=== PATIENT | female | born 1970 ===

== ENCOUNTER 2017-04-27 04:29 | Inpatient (IN) | payer OTHER ==
[2017-04-27 04:29] VITALS: BMI 26.9
[2017-04-27] MEDS ORDERED: Sodium Chloride 0.9% 1,000 ML IV ONE (04:47)
--- NOTE | 2017-04-27 04:53 | C.PDOC ---
History Of Present Illness Patient is a 46 year old female who was recently discharged few minutes ago, returns to the ER due to feeling lightheaded and one episode of hematemesis. Patient states she feels cold and nauseous. Time Seen by Provider: 04/27/17 04:41 Chief Complaint (Nursing): ENT Problem History Per: Patient History/Exam Limitations: no limitations Onset/Duration Of Symptoms: Mins Current Symptoms Are (Timing): Still Present Number Of Bleeding Episodes: One Associated Symptoms: Hematemesis, Other (Dizziness) Modifying Factors: None Recent travel outside of the [place] States: No Past Medical History Reviewed: Historical Data, Nursing Documentation, Vital Signs Vital Signs: Last Vital Signs Temp 98.2 F 04/27/17 04:34 Pulse 87 04/27/17 04:34 Resp 22 04/27/17 04:34 BP 125/62 04/27/17 04:34 Pulse Ox 93 L 04/27/17 06:10 - Medical History PMH: Anemia, Hypothyroidism Other PMH: Von Willebrand Disease Surgical History: Appendectomy (2009) - [facility] Procedures APPLICATION OF SPLINT (09/09/13) Family History: States: Unknown Family Hx - Social History Hx Tobacco Use: No Hx Alcohol Use: No Hx Substance Use: No - Immunization History Hx Tetanus Toxoid Vaccination: No Hx Influenza Vaccination: No Hx Pneumococcal Vaccination: No Review Of Systems Constitutional: Negative for: Fever, Chills ENT: Positive for: Other (bleeding gums) Gastrointestinal: Positive for: Hematemesis. Negative for: Nausea, Vomiting, Diarrhea Neurological: Positive for: Dizziness Physical Exam - Physical Exam Appears: Non-toxic, Other (Shivering) Skin: Dry, Pale, Other (cool, clammy) Head: Atraumatic, Normacephalic Eye(s): bilateral: Normal Inspection, EOMI Nose: Normal, No Flaring Oral Mucosa: Other (Blood in mouth) Neck: Normal ROM Chest: Symmetrical, No Tenderness Cardiovascular: Rhythm Regular, No Murmur Respiratory: Normal Breath Sounds, No Rales, No Rhonchi, No Wheezing Gastrointestinal/Abdominal: Soft, No Tenderness Extremity: Bilateral: Atraumatic Neurological/Psych: Oriented x3, Normal Speech, Other (No focal deficits) ED Course And Treatment - Laboratory Results Result Diagrams: 04/27/17 04:59 O2 Sat by Pulse Oximetry: 93 Medical Decision Making Medical Decision Making: Impression: 46 year old female with hematemesis. Plan: * Labs * IV fluids * motion picture director Progress: [address] Goldman and discussed case. He reviewed record from [facility], and recommended observation, fluids and can consult Dr Ley. Await labs 0512 Hgb is 7.3, acute change from 8.8 earlier. Order placed for type and cross. 0532 Dr. Ley called with no response, message left. [address] Goldman who now accepts patient to service. Will transfuse [address] Ley called again with no response, message left again. [address] Ley and he recommends 2 units PRBCs. If patient continues bleeding give 2 unit cryoprecipitate, if continues bleeding may need humate, von willebrand factor concentrate which will need to be ordered. Disposition - Disposition Disposition: HOSPITALIZED Disposition Time: 05:50 Condition: FAIR - POA Present On Arrival: None - Clinical Impression Clinical Impression: Gingival bleeding, Von Willebrand disease, type I, Anemia associated with acute blood loss - Scribe Statement The provider has reviewed the documentation as recorded by the Scribe Gene Pozo All medical record entries made by the Scribe were at my direction and personally dictated by me. I have reviewed the chart and agree that the record accurately reflects my personal performance of the history, physical exam, medical decision making, and the department course for this patient. I have also personally directed, reviewed, and agree with the discharge instructions and disposition. Decision To Admit - Pt Status Changed To: Hospital Disposition Of: Observation - . Bed Request Type: Telemetry Admitting Physician: Darrel Goldman Patient Diagnosis: Gingival bleeding, Von Willebrand disease, type I, Anemia associated with acute blood loss
[2017-04-27 05:04] LABS: HEMATOCRIT 21.4 % (34.0-47.0); MEAN CELL VOLUME 78.9 fL (81.0-99.0); MEAN CORPUSCULAR HEMOGLOBIN 26.9 pg (27.0-31.0); MEAN CORPUSCULAR HGB CONC 34.1 g/dL (33.0-37.0); MEAN PLATELET VOLUME 9.3 fL (7.2-11.7); WHITE BLOOD COUNT 9.5 K/uL (4.8-10.8)
--- NOTE | 2017-04-27 06:23 | CP.PCM.HP ---
<David Rdz - Last Filed: 04/27/17 06:47> Meds Allergies/Adverse Reactions: Allergies Allergy/AdvReac Type Severity Reaction Status Date / Time No Known Allergies Allergy Verified 04/27/17 04:44 Results - Vital Signs Recent Vital Signs: Last Vital Signs Temp 98.2 F 04/27/17 04:34 Pulse 87 04/27/17 04:34 Resp 22 04/27/17 04:34 BP 125/62 04/27/17 04:34 Pulse Ox 93 L 04/27/17 06:17 - Labs Result Diagrams: 04/27/17 04:59 Labs: Laboratory Results - last 24 hr 04/27/17 06:24 Blood Type O POSITIVE Antibody Screen Negative ED Course And Treatment - Laboratory Results Result Diagrams: 04/27/17 04:59 ECG: Interpreted By Me, Viewed By Me ECG Rhythm: Sinus Rhythm ECG Interpretation: No Acute Changes, Abnormal Interpretation Of ECG: NSR, prolonged QT interval, no acute change, abnormal tracings. Rate From EC O2 Sat by Pulse Oximetry: 93 <Rod Jaime - Last Filed: 04/27/17 08:45> History of Present Illness - History of Present Illness History of Present Illness: CC: Persistent gingival bleeding HPI: Patient is a 46 year old female, with PMHx of Type 1 VWD, iron deficiency anemia, and hypothyroidism, who presents to ED for evaluation of gingival bleeding. Patient states bleeding started spontaneously around midnight , and has lasted for more than an hour. Pt was given fluids, and one unit of desmopressin, and ceased bleeding, was hemodynamically stable, and discharged. Pt got to parking lot, when she felt lightheaded, and had one episode of hematemesis. She admits nausea and feeling light-headed, but denies epistaxis, hemotchezia, vision changes, extremity numbness/weakness, chest pain, shortness of breath, palpitations, abdominal pain. Pt was seen at [facility] on 04/25 for similar symptoms, and was given 1 unit of PRBCs and one unit of DDAVP. Hgb was 8. Patient diagnosed with Type [address] Ley. Patient has had other episodes of bleeding in the past, with the first being in 2013. She notes multiple prior transfusions. PMHx: Von Willebrand, Hypothyroid PSHx: Appendectomy (approximately 2009) Allergies: NKDA Medications: Synthroid 125mcg, Ferrous Sulfate Family Hx:Mother- HTN, Father- DM, Brother-frequent nose bleeds Social Hx: Lives with , no tobacco, no EtOH, no illicit drugs Present on Admission - Present on Admission Any Indicators Present on Admission: No Review of Systems - Constitutional Constitutional: Chills. absent: Fever - EENT Eyes: absent: Change in Vision Ears: absent: Decreased Hearing Nose/Mouth/Throat: absent: Sore Throat - Cardiovascular Cardiovascular: absent: Chest Pain, Chest Pain at Rest, Dyspnea - Respiratory Respiratory: absent: Dyspnea, Dyspnea on Exertion - Gastrointestinal Gastrointestinal: Hematemesis (one episode), Nausea, Vomiting. absent: Abdominal Pain - Genitourinary Genitourinary: absent: Dysuria - Menstruation Menstruation: Menopausal (LMP in Sep 2016) - Musculoskeletal Musculoskeletal: absent: Numbness, Tingling - Integumentary Integumentary: absent: Dry Skin, Wounds - Neurological Neurological: Dizziness. absent: Weakness - Endocrine Endocrine: absent: Polydipsia, Polyphagia, Polyuria Past Patient History - Infectious Disease Hx of Infectious Diseases: None - Past Medical History & Family History Past Medical History?: Yes - Past Social History Smoking Status: Never Smoked - CARDIAC Hx Cardiac Disorders: No - PULMONARY Hx Respiratory Disorders: No - NEUROLOGICAL Hx Neurological Disorder: No - HEENT Hx HEENT Problems: No - RENAL Hx Chronic Kidney Disease: No - ENDOCRINE/METABOLIC Hx Hypothyroidism: Yes - HEMATOLOGICAL/ONCOLOGICAL Hx Anemia: Yes - INTEGUMENTARY Hx Dermatological Problems: No - MUSCULOSKELETAL/RHEUMATOLOGICAL Hx Musculoskeletal Disorders: No Hx Falls: No - GASTROINTESTINAL Hx Gastrointestinal Disorders: No - GENITOURINARY/GYNECOLOGICAL Hx Genitourinary Disorders: No - PSYCHIATRIC Hx Substance Use: No - SURGICAL HISTORY Hx Appendectomy: Yes (2009) - ANESTHESIA Hx Anesthesia: Yes Physical Exam - Constitutional Appears: Non-toxic, No Acute Distress - Head Exam Head Exam: ATRAUMATIC, NORMOCEPHALIC - Eye Exam Eye Exam: EOMI Pupil Exam: PERRL - ENT Exam ENT Exam: Mucous Membranes Dry - Neck Exam Neck exam: Positive for: Normal Inspection - Respiratory Exam Respiratory Exam: Clear to Auscultation Bilateral, NORMAL BREATHING PATTERN - Cardiovascular Exam Cardiovascular Exam: REGULAR RHYTHM, +S1, +S2, Systolic Murmur (aortic murmur) - GI/Abdominal Exam GI & Abdominal Exam: Normal Bowel Sounds, Soft. absent: Tenderness - Extremities Exam Extremities exam: Positive for: normal capillary refill, normal inspection - Back Exam Back exam: absent: CVA tenderness (L), CVA tenderness (R) - Neurological Exam Neurological exam: Alert, Oriented x3 - Psychiatric Exam Psychiatric exam: Normal Affect, Normal Mood - Skin Skin Exam: Dry, Pallor Results - Vital Signs Recent Vital Signs: Last Vital Signs Temp 98.2 F 04/27/17 04:34 Pulse 87 04/27/17 04:34 Resp 22 04/27/17 04:34 BP 125/62 04/27/17 04:34 Pulse Ox 93 L 04/27/17 06:17 - Labs Result Diagrams: 04/27/17 04:59 Assessment & Plan - Assessment and Plan (Free Text) Assessment: 46 year old female, with PMHx of Type 1 VWD, iron deficiency anemia, and hypothyroidism, who presents to ED for evaluation of gingival bleeding. Plan: Von Willebrands Dz, Type 1 Pt not actively bleeding Type and Screen - 2 units - hold administration pending 11AM CBC Dr. Ley help, appreciated - f/u reccs PCXR (04/27/17): mild venous congestion (see full report) Anemia Hgb: 7.3 on AM labs, 8.8 on 04/26 PM labs - believed dilutional from fluids f/u CBC Q6H NS @ 100cc/hr 2L O2 PRN Hypothyroidism Hold home Synthroid 125mg PO Daily f/u TSH Murmur f/u ECHO Prophylaxis SCDs Heparin C/I due to active hemorrhage Protonix 40mg IV Q12H ED Course And Treatment - Laboratory Results Result Diagrams: 04/27/17 04:59 <Darrel Goldman P - Last Filed: 04/29/17 23:29> Results - Vital Signs Recent Vital Signs: Last Vital Signs Temp 97.6 F 04/29/17 15:09 Pulse 65 04/29/17 15:09 Resp 18 04/29/17 15:09 BP 126/74 04/29/17 15:09 Pulse Ox 96 04/29/17 15:09 - Labs Result Diagrams: 04/29/17 07:11 04/29/17 07:11 ED Course And Treatment - Laboratory Results Result Diagrams: 04/29/17 07:11 04/29/17 07:11 Attending/Attestation - Attestation I have personally seen and examined this patient.: Yes I have fully participated in the care of the patient.: Yes I have reviewed all pertinent clinical information: Yes
[2017-04-27 06:47] LABS: INR 1.1
--- NOTE | 2017-04-27 07:33 | RAD ---
HISTORY: admission, anemia COMPARISON: No prior. FINDINGS: LUNGS: Mild venous congestion. PLEURA: No significant pleural effusion identified, no pneumothorax apparent. CARDIOVASCULAR: Normal. OSSEOUS STRUCTURES: No significant abnormalities. VISUALIZED UPPER ABDOMEN: Normal. OTHER FINDINGS: None. IMPRESSION: Mild venous congestion.
--- NOTE | 2017-04-27 09:24 | CP.PCM.PN ---
Addendum entered and electronically signed by Mariya Frank 04/27/17 10:55: Head CT negative Addendum entered and electronically signed by Mariya Frank 04/27/17 09:55: CT abdomen/pelvis ordered as per GI team- will follow up Original Note: <Mariya Frank - Last Filed: 04/27/17 09:31> Subjective - Date & Time of Evaluation Date of Evaluation: 04/27/17 Time of Evaluation: 09:15 - Subjective Subjective: RAPID RESPONSE NOTE HANDICRAFTS TEACHER called 9:15am Resident and attending came down immediately. Patient was having hematemesis and in distress. She was also complaining of a headache. BP 119/75 HR 80 Temp 98.3 RR 18 O2 100% Patient was being given 1U PRBC transfusion at time of HANDICRAFTS TEACHER which was not stopped Patient has been NPO since admission on NS @ 100cc/hr Patient was started on protonix gtt and 17.5539 mcg DDAVP Repeat vitals 135/75 HR 80 Temp 98.3 O2 100% on room air CT head ordered. GI Dr. Ramírez consulted CBC ordered post transfusion 1U PRBC Objective - Vital Signs/Intake and Output Vital Signs (last 24 hours): Temp Pulse Resp BP Pulse Ox 98.3 F 80 18 119/75 98 04/27/17 08:58 04/27/17 08:58 04/27/17 08:58 04/27/17 08:58 04/27/17 08:06 Intake and Output: 04/27/17 04/27/17 06:59 18:59 Intake Total 0 Balance 0 - Medications Medications: Current Medications Sodium Chloride (Sodium Chloride 0.9%) 1,000 mls @ 100 mls/hr IV .Q10H BRET Pantoprazole Sodium 80 mg/ (Sodium Chloride) 100 mls @ 10 mls/hr IVP .Q10H BRET PRN Reason: 8 MG/HR Desmopressin Acetate 17.5539 (mcg/ Sodium Chloride) 54.3885 mls @ 100 mls/hr IV ONCE ONE Stop: 04/27/17 09:50 Ondansetron HCl (Zofran Inj) 4 mg IVP Q6 BRET - Labs Labs: PT 12.8 SECONDS (9.7-12.2) H 04/27/17 05:59 INR 1.1 04/27/17 05:59 APTT 29 SECONDS (21-34) D 04/27/17 05:59 <De LeónMendez arreola H - Last Filed: 04/27/17 15:26> Objective - Vital Signs/Intake and Output Vital Signs (last 24 hours): Temp Pulse Resp BP Pulse Ox 98.0 F 85 20 105/63 100 04/27/17 15:06 04/27/17 15:06 04/27/17 15:06 04/27/17 15:06 04/27/17 12:12 Intake and Output: 04/27/17 04/27/17 06:59 18:59 Intake Total 385 Balance 385 - Medications Medications: Current Medications Ferric Sodium Gluconate Complex (Ferrlecit) 125 mg IVPB DAILY [facility] Stop: 05/02/17 18:01 Sodium Chloride (Sodium Chloride 0.9%) 1,000 mls @ 100 mls/hr IV .Q10H [facility] Last Admin: 04/27/17 14:10 Dose: 100 mls/hr Lactated Ringer's (Lactated Ringer's 500ml) 500 mls @ 75 mls/hr IV .Q6H40M [facility] Last Admin: 04/27/17 14:19 Dose: Not Given Ondansetron HCl (Zofran Inj) 4 mg IVP Q6 PRN PRN Reason: Nausea/Vomiting Pantoprazole Sodium (Protonix Ec Tab) 40 mg PO DAILY BRET - Labs Labs: 04/27/17 13:44 PT 12.8 SECONDS (9.7-12.2) H 04/27/17 05:59 INR 1.1 04/27/17 05:59 APTT 29 SECONDS (21-34) D 04/27/17 05:59 Attending/Attestation - Attestation I have personally seen and examined this patient.: Yes I have fully participated in the care of the patient.: Yes I have reviewed all pertinent clinical information, including history, physical exam and plan: Yes Notes (Text): 04/27/17 15:22 Medical hospitalist: The patient was seen and examined by me, agree with the above note by clinical medical assistant. From what I understand the patient has a history of von Willebrand's disease. She was previously seen at [facility] and was discharged there. She then came to [facility] where she received DDAVP and was discharged from the ER but while waiting had of vomiting up blood. I came up to the floor to see the patient HANDICRAFTS TEACHER was called. I saw basin which had a very dark colored blood in it. Reviewed the most recent lab work showed that she did have a low hemoglobin I gave orders to transfuse her 1 unit of PRBCs as well as to give additional DDAVP her blood pressure and heart rate were stable at this time I looked in her mouth it appears that she has area on her gums that was bleeding. The blood in the basin was not bright red and as a precaution were to start protonix ggt. Rate have to monitor the patient's hemoglobin at this time. From what I understand hematology oncology has ordered specialized clotting factors however I don't know if we have it available. Because she was complaining of headache, as well as this history of von Willebrand's disease, the bleeding and the low hemoglobin we opted to get a CT scan of the head to assess for any potential bleeding in the brain Thank you very much, Mendez De León
[2017-04-27] MEDS ORDERED: Pantoprazole 80 MG in Sodium Chloride 0.9% 100 ML IVP SCH (09:30)
[2017-04-27] MEDS ORDERED: SODIUM CHLORIDE 0.9% IV ONE (10:00)
[2017-04-27] MEDS ORDERED: DESMOPRESSIN IV ONE (10:00)
--- NOTE | 2017-04-27 10:14 | CT ---
PROCEDURE: CT HEAD WITHOUT CONTRAST. HISTORY: headaches and hx of VWD COMPARISON: None available. TECHNIQUE: Axial computed tomography images were obtained through the head/brain without intravenous contrast. Radiation dose: Total exam DLP = 981.84 mGy-cm. This CT exam was performed using one or more of the following dose reduction techniques: Automated exposure control, adjustment of the mA and/or kV according to patient size, and/or use of iterative reconstruction technique. FINDINGS: HEMORRHAGE: No intracranial hemorrhage. BRAIN: No mass effect or edema. The green-white matter differentiation appears intact. Please note that MRI with diffusion imaging is more sensitive in the detection of acute ischemic event. VENTRICLES: No hydrocephalus. CALVARIUM: Unremarkable. PARANASAL SINUSES: Unremarkable as visualized. No significant inflammatory changes. MASTOID AIR CELLS: Unremarkable as visualized. No inflammatory changes. OTHER FINDINGS: None. IMPRESSION: No acute intracranial pathology identified. Please note that MRI with diffusion imaging is more sensitive in the detection of acute ischemic event.
[2017-04-27] MEDS ORDERED: Pantoprazole 80 MG in Sodium Chloride 0.9% 100 ML IV SCH (10:15)
--- NOTE | 2017-04-27 10:25 | CP.PCM.PN ---
Subjective - Date & Time of Evaluation Date of Evaluation: 04/27/17 Time of Evaluation: 09:30 - Subjective Subjective: PGY1 Medicine note for Dr. Gilbert Patient seen and examined at bedside. Patient had an APPAREL DESIGNER called this AM which I attended to. Patient was sent for an EGD which showed no acute bleed. Before APPAREL DESIGNER and episode of hematemesis patient was complaining of headaches and fatigue. She denied acute chest pain, palpitations, SOB, cough, abd pain, bowel/ bladder complaints, pain/swelling in legs bilaterally. Patient had an episode of melanotic stool during the day. Objective - Vital Signs/Intake and Output Vital Signs (last 24 hours): Temp Pulse Resp BP Pulse Ox 98.3 F 82 20 128/70 98 04/27/17 09:28 04/27/17 09:28 04/27/17 09:28 04/27/17 09:28 04/27/17 08:06 Intake and Output: 04/27/17 04/27/17 06:59 18:59 Intake Total 0 Balance 0 - Medications Medications: Current Medications Sodium Chloride (Sodium Chloride 0.9%) 1,000 mls @ 100 mls/hr IV .Q10H BRET Desmopressin Acetate 18 mcg/ (Sodium Chloride) 54.5 mls @ 100 mls/hr IV ONCE ONE Stop: 04/27/17 10:32 Pantoprazole Sodium 80 mg/ (Sodium Chloride) 100 mls @ 10 mls/hr IV .Q10H BRET PRN Reason: 8 MG/HR Ondansetron HCl (Zofran Inj) 4 mg IVP Q6 BRET - Labs Labs: PT 12.8 SECONDS (9.7-12.2) H 04/27/17 05:59 INR 1.1 04/27/17 05:59 APTT 29 SECONDS (21-34) D 04/27/17 05:59 - Constitutional Appears: In Acute Distress - Head Exam Head Exam: NORMAL INSPECTION - Eye Exam Eye Exam: Normal appearance. absent: Conjunctival injection, Scleral icterus - ENT Exam ENT Exam: Mucous Membranes Moist - Neck Exam Neck Exam: Normal Inspection. absent: Tenderness - Respiratory Exam Respiratory Exam: Clear to Ausculation Bilateral, NORMAL BREATHING PATTERN. absent: Accessory Muscle Use, Rales, Rhonchi, Wheezes - Cardiovascular Exam Cardiovascular Exam: REGULAR RHYTHM, RRR, +S1, +S2. absent: Murmur - GI/Abdominal Exam GI & Abdominal Exam: Soft, Normal Bowel Sounds. absent: Tenderness - Extremities Exam Extremities Exam: Normal Capillary Refill, Normal Inspection. absent: Pedal Edema, Tenderness - Back Exam Back Exam: NORMAL INSPECTION. absent: rash noted - Neurological Exam Neurological Exam: Alert, Awake, Oriented x3 - Psychiatric Exam Psychiatric exam: Normal Affect, Normal Mood - Skin Skin Exam: Pallor, Pallor Assessment and Plan - Assessment and Plan (Free Text) Assessment: 46 year old female, with PMHx of Type 1 VWD, iron deficiency anemia, and hypothyroidism, who presents to ED for evaluation of gingival bleeding Plan: Von Willebrands Dz, Type 1 -patient transfused 2U PRBC -Desmopressin 0.3mcg/kg of body weight given IV today -As per heme/onc will give one more dose of desmopressin in the AM- ordered. -Patient to be discharged in the AM on intranasal desmopressin and follow up with Dr. Ley outpatient -Dr. Ley on board help appreciated Hematemesis -Urgent EGD done by Dr. Ramírez -EGD showed : Z-line regular 35cm from incisors. Normal esophagus; gastritis [ likely secondary to retching]; normal examined duodenum. - no active GI blood loss. -Patient on full liquid diet to be ADAT -Protonix 40mg po daily -Zofran 4mg IVP Q6 PRN nausea/vomiting -Monitor H&H and transfuse as necessary -NS @ 100cc/hr -Dr. Ramírez on board help appreciated Iron deficiency Anemia -patient transfused 2U PRBC -f/u repeat CBC -Ferrlecit 125mg IVPB daily for 5 days -Patient to continue IV iron outpatient with Dr. Ley Hypothyroidism -Hold home Synthroid 125mg PO Daily Murmur f/u ECHO Prophylaxis -SCDs -Protonix 40mg PO daily -Full liquid diet ADAT -NS @ 100c/hr Plan discussed with Dr. Ofelia Frank PGY1
[2017-04-27] MEDS: Sodium Chloride 0.9% 1,000 ML IV SCH ×2 (11:05→14:10)
[2017-04-27] MEDS ORDERED: Lactated Ringer's 500 ML IV ONE (11:12)
[2017-04-27] MEDS ORDERED: Propofol 10 mg/ml Inj (20 ML) ONE (11:18)
--- NOTE | 2017-04-27 11:38 | CP.PCM.CON ---
<RajJessicasEse - Last Filed: 04/27/17 11:56> History of Present Illness - History of Present Illness History of Present Illness: Gastroenterology Fellow/PGY4 Consult Note 46 year old female with history of von Willebrand factor deficiency and Hypothyroidism presenting with vomiting blood. Patient and note recent discharge on Monday from [facility] [place] for bleeding gums status post one unit pRBC and DDAVP. Patient had repeat bleeding at 430AM this morning leading to ER presentation. Repeat witnessed hematemesis at 930AM with rapid response. Started on protonix drip, one unit PRBC, and DDAVP. On further questioning, similar event in 2014 leading to EGD with "esophageal clips placement" per . Patient one episode of black stool one hour after hematemesis. Patient denies abdominal pain, nausea, bilious/food vomitus, dysphagia, odynophagia, heartburn, acid reflux, indigestion, bloating, diarrhea, constipation, melena at home, hematochezia, or unintentional weight loss. Family- denies esophageal cancer, stomach cancer, colon cancer Social- denies tobacco or illicit drug use, quit alcohol use a few years ago Surgery-appendectomy, Review of Systems - Review of Systems Review of Systems: A 12-point review of systems negative except for as above Past Patient History - Infectious Disease Hx of Infectious Diseases: None - Past Medical History & Family History Past Medical History?: Yes - Past Social History Smoking Status: Never Smoked - CARDIAC Hx Cardiac Disorders: No - PULMONARY Hx Respiratory Disorders: No - NEUROLOGICAL Hx Neurological Disorder: No - HEENT Hx HEENT Problems: No - RENAL Hx Chronic Kidney Disease: No - ENDOCRINE/METABOLIC Hx Hypothyroidism: Yes - HEMATOLOGICAL/ONCOLOGICAL Hx Anemia: Yes - INTEGUMENTARY Hx Dermatological Problems: No - MUSCULOSKELETAL/RHEUMATOLOGICAL Hx Musculoskeletal Disorders: No Hx Falls: No - GASTROINTESTINAL Hx Gastrointestinal Disorders: No - GENITOURINARY/GYNECOLOGICAL Hx Genitourinary Disorders: No - PSYCHIATRIC Hx Substance Use: No - SURGICAL HISTORY Hx Appendectomy: Yes (2009) - ANESTHESIA Hx Anesthesia: Yes Meds Allergies/Adverse Reactions: Allergies Allergy/AdvReac Type Severity Reaction Status Date / Time No Known Allergies Allergy Verified 04/27/17 04:44 - Medications Medications: Current Medications Sodium Chloride (Sodium Chloride 0.9%) 1,000 mls @ 100 mls/hr IV .Q10H [facility] Last Admin: 04/27/17 11:05 Dose: Not Given Lactated Ringer's (Lactated Ringer's 500ml) 500 mls @ 75 mls/hr IV .Q6H40M [facility] Ondansetron HCl (Zofran Inj) 4 mg IVP Q6 [facility] Pantoprazole Sodium (Protonix Ec Tab) 40 mg PO DAILY [facility] Physical Exam - Constitutional Appears: Non-toxic, No Acute Distress - Head Exam Head Exam: ATRAUMATIC, NORMOCEPHALIC - Eye Exam Eye Exam: EOMI, PERRL Pupil Exam: PERRL. absent: Miosis, Mydriatic - ENT Exam ENT Exam: Mucous Membranes Moist, Normal Oropharynx - Neck Exam Neck exam: Positive for: Full Rom, Normal Inspection - Respiratory Exam Respiratory Exam: Clear to Auscultation Bilateral. absent: Rales, Rhonchi, Wheezes - Cardiovascular Exam Cardiovascular Exam: RRR, +S1, +S2. absent: Gallop, Rubs - GI/Abdominal Exam GI & Abdominal Exam: Normal Bowel Sounds, Soft. absent: Distended, Firm, Guarding, Organomegaly, Rebound, Rigid, Tenderness - Extremities Exam Extremities exam: Positive for: normal inspection. Negative for: pedal edema - Neurological Exam Neurological exam: Alert - Psychiatric Exam Psychiatric exam: Normal Affect, Normal Mood - Skin Skin Exam: Dry, Intact, Normal Color, Warm Results - Vital Signs Recent Vital Signs: Last Vital Signs Temp 98 F 04/27/17 11:07 Pulse 69 04/27/17 11:07 Resp 20 04/27/17 11:07 BP 124/79 04/27/17 11:07 Pulse Ox 98 04/27/17 08:06 - Labs Result Diagrams: 04/27/17 04:59 Labs: Laboratory Results - last 24 hr 04/27/17 04/27/17 04/27/17 05:59 06:24 11:14 PT 12.8 H INR 1.1 APTT 29 D Urine HCG, Qual Negative Blood Type O POSITIVE Antibody Screen Negative Assessment & Plan - Assessment and Plan (Free Text) Assessment: 46 year old female with history of von Willebrand factor deficiency and Hypothyroidism presenting with hematemesis. Active treatment of acute blood loss anemia s/p 2units pRBCs and DDAVP in setting of von Willebrand factor deficiency. EGD 2015 endorsed evaluation of hematemesis with "esophageal clips placement". Plan: >urgent EGD performed >no active GI blood loss >gastritis, erythema of gastric fundus likely 2/2 retching >supportive care: PPI daily, antiemetics >full liquid diet >follow up Hematology recommendations- vWF deficiency >thank you for opportunity to participate in the care of this patient <Claude Ramírez - Last Filed: 04/27/17 13:04> Meds - Medications Medications: Current Medications Sodium Chloride (Sodium Chloride 0.9%) 1,000 mls @ 100 mls/hr IV .Q10H [facility] Last Admin: 04/27/17 11:05 Dose: Not Given Lactated Ringer's (Lactated Ringer's 500ml) 500 mls @ 75 mls/hr IV .Q6H40M [facility] Ondansetron HCl (Zofran Inj) 4 mg IVP Q6 PRN PRN Reason: Nausea/Vomiting Pantoprazole Sodium (Protonix Ec Tab) 40 mg PO DAILY [facility] Results - Vital Signs Recent Vital Signs: Last Vital Signs Temp 97.2 F L 04/27/17 12:12 Pulse 69 04/27/17 12:12 Resp 18 04/27/17 12:12 BP 119/68 04/27/17 12:12 Pulse Ox 100 04/27/17 12:12 - Labs Result Diagrams: 04/27/17 04:59 Labs: Laboratory Results - last 24 hr 04/27/17 04/27/17 04/27/17 05:59 06:24 11:14 PT 12.8 H INR 1.1 APTT 29 D Urine HCG, Qual Negative Blood Type O POSITIVE Antibody Screen Negative Attending/Attestation - Attestation I have personally seen and examined this patient.: Yes I have fully participated in the care of the patient.: Yes I have reviewed all pertinent clinical information: Yes Notes (Text): 04/27/17 12:58 I have seen and examined patient with GI fellow. Agree with above documentation with the following additions. In brief, this is a 46 year old female with history of Type 1 VWF deficiency, hypothyroidism who presents to hospital with complaint of gingival bleeding. She was started on DDAVP for therapy of platelet dysfunction. Hospital course complicated by acute episode of hematemesis this morning. She denies abdominal pain though she does endorse nausea. She otherwise denies weight loss, fever/chills, dysphagia, odynophagia , diarrhea, or change in bowel habits. She had a similar presentation in 2014 where intervention was performed on esophagus, she cannot specify details. Type 1 VWF deficiency Hypothyroidism Gingival bleeding, hematemesis - Continue with PPI therapy - NPO - Follow up hematology recommendations regarding management of VWF deficiency - Patient currently receiving 1 U PRBC transfusion, continue to monitor H/H - Will plan for urgent EGD today to rule out acute upper GI bleeding given clinical presentation. Her symptoms may also be explained by the swallowing of residual blood in oropharynx from initial gingival bleeding. Will make additional recommendations following endoscopic evaluation.
[2017-04-27 13:50] LABS: MEAN CELL VOLUME 78.9 fL (81.0-99.0); MEAN CORPUSCULAR HEMOGLOBIN 27.8 pg (27.0-31.0); MEAN CORPUSCULAR HGB CONC 35.2 g/dL (33.0-37.0); MEAN PLATELET VOLUME 9.2 fL (7.2-11.7); RED CELL DISTRIBUTION WIDTH 15.2 % (11.5-14.5); WHITE BLOOD COUNT 5.8 K/uL (4.8-10.8)
[2017-04-27] MEDS: Lactated Ringer's 500 ML IV SCH (14:19)
--- NOTE | 2017-04-27 14:32 | CP.PCM.CON ---
Past Patient History - Infectious Disease Hx of Infectious Diseases: None - Past Medical History & Family History Past Medical History?: Yes - Past Social History Smoking Status: Never Smoked - CARDIAC Hx Cardiac Disorders: No - PULMONARY Hx Respiratory Disorders: No - NEUROLOGICAL Hx Neurological Disorder: No - HEENT Hx HEENT Problems: No - RENAL Hx Chronic Kidney Disease: No - ENDOCRINE/METABOLIC Hx Hypothyroidism: Yes - HEMATOLOGICAL/ONCOLOGICAL Hx Anemia: Yes - INTEGUMENTARY Hx Dermatological Problems: No - MUSCULOSKELETAL/RHEUMATOLOGICAL Hx Musculoskeletal Disorders: No Hx Falls: No - GASTROINTESTINAL Hx Gastrointestinal Disorders: No - GENITOURINARY/GYNECOLOGICAL Hx Genitourinary Disorders: No - PSYCHIATRIC Hx Substance Use: No - SURGICAL HISTORY Hx Appendectomy: Yes (2009) - ANESTHESIA Hx Anesthesia: Yes Meds Allergies/Adverse Reactions: Allergies Allergy/AdvReac Type Severity Reaction Status Date / Time No Known Allergies Allergy Verified 04/27/17 04:44 - Medications Medications: Current Medications Sodium Chloride (Sodium Chloride 0.9%) 1,000 mls @ 100 mls/hr IV .Q10H [facility] Last Admin: 04/27/17 14:10 Dose: 100 mls/hr Lactated Ringer's (Lactated Ringer's 500ml) 500 mls @ 75 mls/hr IV .Q6H40M [facility] Last Admin: 04/27/17 14:19 Dose: Not Given Ondansetron HCl (Zofran Inj) 4 mg IVP Q6 PRN PRN Reason: Nausea/Vomiting Pantoprazole Sodium (Protonix Ec Tab) 40 mg PO DAILY [facility] Results - Vital Signs Recent Vital Signs: Last Vital Signs Temp 97.2 F L 04/27/17 12:12 Pulse 69 04/27/17 12:12 Resp 18 04/27/17 12:12 BP 119/68 04/27/17 12:12 Pulse Ox 100 04/27/17 12:12 - Labs Result Diagrams: 04/27/17 13:44 Labs: Laboratory Results - last 24 hr 04/27/17 04/27/17 04/27/17 05:59 06:24 11:14 WBC RBC Hgb Hct MCV MCH MCHC RDW Plt Count MPV PT 12.8 H INR 1.1 APTT 29 D Urine HCG, Qual Negative Blood Type O POSITIVE Antibody Screen Negative 04/27/17 13:44 WBC 5.8 RBC 3.04 L Hgb 8.5 L Hct 24.0 L MCV 78.9 L MCH 27.8 MCHC 35.2 RDW 15.2 H Plt Count 162 MPV 9.2 PT INR APTT Urine HCG, Qual Blood Type Antibody Screen
--- NOTE | 2017-04-27 14:50 | CP.PCM.PN ---
Objective - Vital Signs/Intake and Output Vital Signs (last 24 hours): Temp Pulse Resp BP Pulse Ox 97.2 F L 69 18 119/68 100 04/27/17 12:12 04/27/17 12:12 04/27/17 12:12 04/27/17 12:12 04/27/17 12:12 Intake and Output: 04/27/17 04/27/17 06:59 18:59 Intake Total 385 Balance 385 - Medications Medications: Current Medications Sodium Chloride (Sodium Chloride 0.9%) 1,000 mls @ 100 mls/hr IV .Q10H [facility] Last Admin: 04/27/17 14:10 Dose: 100 mls/hr Lactated Ringer's (Lactated Ringer's 500ml) 500 mls @ 75 mls/hr IV .Q6H40M [facility] Last Admin: 04/27/17 14:19 Dose: Not Given Ondansetron HCl (Zofran Inj) 4 mg IVP Q6 PRN PRN Reason: Nausea/Vomiting Pantoprazole Sodium (Protonix Ec Tab) 40 mg PO DAILY [facility] - Labs Labs: 04/27/17 13:44 PT 12.8 SECONDS (9.7-12.2) H 04/27/17 05:59 INR 1.1 04/27/17 05:59 APTT 29 SECONDS (21-34) D 04/27/17 05:59
--- NOTE | 2017-04-27 14:58 | CP.PCM.CON ---
History of Present Illness - History of Present Illness History of Present Illness: Consult note for Dr. Ley Heme/Oncology 46 year old female with a history of type 1 von willebrands disease, presenting with prolonged gingival bleeding and anemia. The patient reports to prolonged spontaneous gingival bleeding for several hours. She began to feel dizzy which prompted her to bring her to the ER. In the ER her hgb nadirid at 7 and she was transfused 1U PRBC. She reports to feeling better and her gingival bleeding has resolved. She also reports one episode of hematemasis. Past medical history: Type 1 VWD Past surgical history: None Family history: Brother get frequent node bleedings. Social history: Denies tobacco, alcohol, and illicit drug use. Allergies: NKA Review of systems: Review of Systems - Review of Systems All systems: reviewed and no additional remarkable complaints except - Constitutional Constitutional: Weakness. absent: Chills, Fever - EENT Ears: Dizziness - Cardiovascular Cardiovascular: Lightheadedness. absent: Chest Pain, Palpitations - Gastrointestinal Gastrointestinal: Hematemesis - Genitourinary Genitourinary: absent: Dysuria Past Patient History - Infectious Disease Hx of Infectious Diseases: None - Past Medical History & Family History Past Medical History?: Yes - Past Social History Smoking Status: Never Smoked - CARDIAC Hx Cardiac Disorders: No - PULMONARY Hx Respiratory Disorders: No - NEUROLOGICAL Hx Neurological Disorder: No - HEENT Hx HEENT Problems: No - RENAL Hx Chronic Kidney Disease: No - ENDOCRINE/METABOLIC Hx Hypothyroidism: Yes - HEMATOLOGICAL/ONCOLOGICAL Hx Anemia: Yes - INTEGUMENTARY Hx Dermatological Problems: No - MUSCULOSKELETAL/RHEUMATOLOGICAL Hx Musculoskeletal Disorders: No Hx Falls: No - GASTROINTESTINAL Hx Gastrointestinal Disorders: No - GENITOURINARY/GYNECOLOGICAL Hx Genitourinary Disorders: No - PSYCHIATRIC Hx Substance Use: No - SURGICAL HISTORY Hx Appendectomy: Yes (2009) - ANESTHESIA Hx Anesthesia: Yes Meds Allergies/Adverse Reactions: Allergies Allergy/AdvReac Type Severity Reaction Status Date / Time No Known Allergies Allergy Verified 04/27/17 04:44 - Medications Medications: Current Medications Ferric Sodium Gluconate Complex (Ferrlecit) 125 mg IVPB DAILY [facility] Stop: 05/02/17 15:01 Sodium Chloride (Sodium Chloride 0.9%) 1,000 mls @ 100 mls/hr IV .Q10H [facility] Last Admin: 04/27/17 14:10 Dose: 100 mls/hr Lactated Ringer's (Lactated Ringer's 500ml) 500 mls @ 75 mls/hr IV .Q6H40M [facility] Last Admin: 04/27/17 14:19 Dose: Not Given Ondansetron HCl (Zofran Inj) 4 mg IVP Q6 PRN PRN Reason: Nausea/Vomiting Pantoprazole Sodium (Protonix Ec Tab) 40 mg PO DAILY [facility] Physical Exam - Constitutional Appears: Non-toxic, No Acute Distress - Eye Exam Additional comments: conujunctival pallor - Respiratory Exam Respiratory Exam: Clear to Auscultation Bilateral. absent: Rhonchi, Wheezes - Cardiovascular Exam Cardiovascular Exam: REGULAR RHYTHM, RRR, +S1, +S2. absent: Gallop, Rubs - GI/Abdominal Exam GI & Abdominal Exam: Normal Bowel Sounds. absent: Soft, Tenderness - Extremities Exam Extremities exam: Negative for: pedal edema Results - Vital Signs Recent Vital Signs: Last Vital Signs Temp 97.2 F L 04/27/17 12:12 Pulse 69 04/27/17 12:12 Resp 18 04/27/17 12:12 BP 119/68 04/27/17 12:12 Pulse Ox 100 04/27/17 12:12 - Labs Result Diagrams: 04/27/17 13:44 Labs: Laboratory Results - last 24 hr 04/27/17 04/27/17 04/27/17 05:59 06:24 11:14 WBC RBC Hgb Hct MCV MCH MCHC RDW Plt Count MPV PT 12.8 H INR 1.1 APTT 29 D TSH 3rd Generation Urine HCG, Qual Negative Blood Type O POSITIVE Antibody Screen Negative 04/27/17 04/27/17 13:44 13:44 WBC 5.8 RBC 3.04 L Hgb 8.5 L Hct 24.0 L MCV 78.9 L MCH 27.8 MCHC 35.2 RDW 15.2 H Plt Count 162 MPV 9.2 PT INR APTT TSH 3rd Generation 2.01 Urine HCG, Qual Blood Type Antibody Screen Assessment & Plan (1) Iron deficiency anemia Assessment and Plan: Patient given 2 units of PRBCs, will also give 125mg of IV Ferricit for 5 days staring today, patient can be discharged tomorrow to follow up with Dr. Ley as an outpatient and also receive more IV iron. Hematemsis appears resolved. Follow up as outpatient to recheck cbc. Status: Acute (2) Von Willebrand disease, type I Assessment and Plan: Gingival bleeding and 1 episode of hematemasis. Desmopressin 0.3mcg/kg of body weight given IV today, redose tomorrow morning. Patient can be given intranasal desmopressin as outpatient. Patient seen with and plan discussed with Dr. Av Mak/Onc consult. Status: Chronic
[2017-04-27] MEDS: Ferric Sodium Gluconat Complex 62.5 mg/5 ml Vial IVPB SCH (19:40)
[2017-04-27 23:04] LABS: HEMATOCRIT 27.5 % (34.0-47.0); MEAN CELL VOLUME 79.8 fL (81.0-99.0); MEAN CORPUSCULAR HEMOGLOBIN 28.5 pg (27.0-31.0); MEAN CORPUSCULAR HGB CONC 35.7 g/dL (33.0-37.0); MEAN PLATELET VOLUME 9.2 fL (7.2-11.7); RED CELL DISTRIBUTION WIDTH 16.1 % (11.5-14.5); WHITE BLOOD COUNT 6.1 K/uL (4.8-10.8)
[2017-04-28] MEDS: Lactated Ringer's 500 ML IV SCH ×3 (03:15→16:36)
[2017-04-28] MEDS: Sodium Chloride 0.9% 1,000 ML IV SCH ×4 (05:25→21:06)
[2017-04-28 07:15] LABS: BASO # 0.1 K/uL (0.0-0.2); BASO % 1.1 % (0.0-2.0); EOS # 0.3 K/uL (0.0-0.7); EOS % 5.3 % (0.0-4.0); HEMATOCRIT 26.6 % (34.0-47.0); LYMPH # 1.9 K/uL (1.0-4.3); LYMPH % 36.3 % (20.0-40.0); MEAN CORPUSCULAR HEMOGLOBIN 28.2 pg (27.0-31.0); MEAN CORPUSCULAR HGB CONC 35.7 g/dL (33.0-37.0); MEAN PLATELET VOLUME 8.7 fL (7.2-11.7); MONO # 0.4 K/uL (0.0-0.8); MONO % 7.2 % (0.0-10.0); RED CELL DISTRIBUTION WIDTH 15.8 % (11.5-14.5); WHITE BLOOD COUNT 5.3 K/uL (4.8-10.8)
[2017-04-28 07:31] LABS: CHLORIDE 90 mmol/L (98-107)
[2017-04-28 07:32] LABS: POTASSIUM 3.6 mmol/L (3.6-5.2); SODIUM 123 mmol/L (132-148)
[2017-04-28 07:34] LABS: ALB/GLOB RATIO 1.3 (1.0-2.1); AST/SGOT 86 U/L (14-36); BILIRUBIN,TOTAL 1.8 mg/dL (0.2-1.3); CARBON DIOXIDE 23 mmol/L (22-30); GFR AFRICAN-AMERICAN > 60
[2017-04-28 07:35] LABS: ALKALINE PHOSPHATASE 173 U/L (38-126); ALT/SGPT 53 U/L (9-52); BLOOD UREA NITROGEN 11 mg/dL (7-17); CALCIUM 8.2 mg/dl (8.6-10.4); GLUCOSE,RANDOM 90 mg/dL (65-105); MAGNESIUM 1.7 mg/dL (1.6-2.3); PHOSPHOROUS 3.5 mg/dL (2.5-4.5)
[2017-04-28] MEDS: Ferric Sodium Gluconat Complex 62.5 mg/5 ml Vial IVPB SCH (09:08)
[2017-04-28] MEDS: Pantoprazole 40 mg EC Tab PO SCH (09:09)
--- NOTE | 2017-04-28 13:04 | CP.PCM.PN ---
<MonikaMariya - Last Filed: 04/28/17 13:23> Subjective - Date & Time of Evaluation Date of Evaluation: 04/28/17 Time of Evaluation: 07:15 - Subjective Subjective: PGY1 Medicine note for Dr. Andrade Patient seen and examined at bedside. She reported feeling better this AM. She denied any episodes of gum bleeding, hematemesis, melanotic stool She denied acute chest pain, palpitations, SOB, cough, abd pain, bowel/bladder complaints, pain/swelling in legs bilaterally. Patient tolerated full liquid diet Objective - Vital Signs/Intake and Output Vital Signs (last 24 hours): Temp Pulse Resp BP Pulse Ox 98.1 F 70 20 121/70 99 04/28/17 08:52 04/28/17 09:00 04/28/17 08:52 04/28/17 08:52 04/28/17 08:52 Intake and Output: 04/28/17 04/28/17 06:59 18:59 Intake Total 700 Balance 700 - Medications Medications: Current Medications Ferric Sodium Gluconate Complex (Ferrlecit) 125 mg IVPB DAILY [facility] Stop: 05/02/17 18:01 Last Admin: 04/28/17 09:08 Dose: 125 mg Sodium Chloride (Sodium Chloride 0.9%) 1,000 mls @ 100 mls/hr IV .Q10H [facility] Last Admin: 04/28/17 09:31 Dose: 100 mls/hr Lactated Ringer's (Lactated Ringer's 500ml) 500 mls @ 75 mls/hr IV .Q6H40M [facility] Last Admin: 04/28/17 08:51 Dose: Not Given Ondansetron HCl (Zofran Inj) 4 mg IVP Q6 PRN PRN Reason: Nausea/Vomiting Last Admin: 04/28/17 09:33 Dose: 4 mg Pantoprazole Sodium (Protonix Ec Tab) 40 mg PO DAILY [facility] Last Admin: 04/28/17 09:09 Dose: 40 mg Pneumococcal Polyvalent Vaccine (Pneumovax 23 Vaccine) 0.5 ml IM .ONCE ONE Stop: 04/29/17 10:01 - Labs Labs: 04/28/17 07:08 04/28/17 07:08 PT 12.8 SECONDS (9.7-12.2) H 04/27/17 05:59 INR 1.1 04/27/17 05:59 APTT 29 SECONDS (21-34) D 04/27/17 05:59 - Constitutional Appears: Non-toxic, No Acute Distress - Head Exam Head Exam: ATRAUMATIC, NORMAL INSPECTION, NORMOCEPHALIC - Eye Exam Eye Exam: EOMI, Normal appearance. absent: Conjunctival injection, Scleral icterus - ENT Exam ENT Exam: Mucous Membranes Moist - Neck Exam Neck Exam: Full ROM, Normal Inspection. absent: Tenderness - Respiratory Exam Respiratory Exam: Clear to Ausculation Bilateral, NORMAL BREATHING PATTERN. absent: Accessory Muscle Use, Rales, Rhonchi, Wheezes, Respiratory Distress - Cardiovascular Exam Cardiovascular Exam: REGULAR RHYTHM, RRR, +S1, +S2. absent: Murmur - GI/Abdominal Exam GI & Abdominal Exam: Soft, Normal Bowel Sounds. absent: Firm, Guarding, Rigid, Tenderness - Extremities Exam Extremities Exam: Normal Capillary Refill, Normal Inspection. absent: Pedal Edema, Tenderness - Back Exam Back Exam: NORMAL INSPECTION. absent: rash noted, tenderness - Neurological Exam Neurological Exam: Alert, Awake, Oriented x3 - Psychiatric Exam Psychiatric exam: Normal Affect, Normal Mood - Skin Skin Exam: Dry, Intact, Pallor Assessment and Plan - Assessment and Plan (Free Text) Assessment: 46 year old female, with PMHx of Type 1 VWD, iron deficiency anemia, and hypothyroidism, who presents to ED for evaluation of gingival bleeding Plan: Von Willebrands Dz, Type 1 -patient transfused 2U PRBC -Desmopressin 0.3mcg/kg of body weight given IV today -As per heme/onc will give one more dose of desmopressin in the AM- ordered. -Patient to be discharged in the AM on intranasal desmopressin and follow up with Dr. Ley outpatient -Dr. Ley on board help appreciated Hematemesis -Urgent EGD done by Dr. Ramírez -EGD showed : Z-line regular 35cm from incisors. Normal esophagus; gastritis [ likely secondary to retching]; normal examined duodenum. - no active GI blood loss. -Patient on full liquid diet to be ADAT -Protonix 40mg po daily -Zofran 4mg IVP Q6 PRN nausea/vomiting -Monitor H&H and transfuse as necessary -NS @ 100cc/hr -Dr. Ramírez on board help appreciated Iron deficiency Anemia -patient transfused 2U PRBC 04/27/17 -Ferrlecit 125mg IVPB daily for 5 days -Patient to continue IV iron outpatient with Dr. Ley Hyponatremia -likely secondary to desmopressin -f/u AM CMP Hypothyroidism -Hold home Synthroid 125mg PO Daily Murmur f/u ECHO Prophylaxis -SCDs -Protonix 40mg PO daily -Regular diet for lunch this AM -NS @ 100c/hr Plan discussed with Dr. Lupe Frank PGY1 <Tangela Andrade V - Last Filed: 04/28/17 17:56> Objective - Vital Signs/Intake and Output Vital Signs (last 24 hours): Temp Pulse Resp BP Pulse Ox 97.6 F 64 18 124/76 100 04/28/17 15:26 04/28/17 15:26 04/28/17 15:26 04/28/17 15:26 04/28/17 15:26 Intake and Output: 04/28/17 04/28/17 06:59 18:59 Intake Total 700 Balance 700 - Medications Medications: Current Medications Ferric Sodium Gluconate Complex (Ferrlecit) 125 mg IVPB DAILY [facility] Stop: 05/02/17 18:01 Last Admin: 04/28/17 09:08 Dose: 125 mg Sodium Chloride (Sodium Chloride 0.9%) 1,000 mls @ 100 mls/hr IV .Q10H [facility] Last Admin: 04/28/17 16:36 Dose: Not Given Lactated Ringer's (Lactated Ringer's 500ml) 500 mls @ 75 mls/hr IV .Q6H40M [facility] Last Admin: 04/28/17 16:36 Dose: Not Given Ondansetron HCl (Zofran Inj) 4 mg IVP Q6 PRN PRN Reason: Nausea/Vomiting Last Admin: 04/28/17 09:33 Dose: 4 mg Pantoprazole Sodium (Protonix Ec Tab) 40 mg PO DAILY [facility] Last Admin: 04/28/17 09:09 Dose: 40 mg Pneumococcal Polyvalent Vaccine (Pneumovax 23 Vaccine) 0.5 ml IM .ONCE ONE Stop: 04/29/17 10:01 - Labs Labs: 04/28/17 07:08 04/28/17 07:08 PT 12.8 SECONDS (9.7-12.2) H 04/27/17 05:59 INR 1.1 04/27/17 05:59 APTT 29 SECONDS (21-34) D 04/27/17 05:59 Attending/Attestation - Attestation I have personally seen and examined this patient.: Yes I have fully participated in the care of the patient.: Yes I have reviewed all pertinent clinical information, including history, physical exam and plan: Yes Notes (Text): Patient seen, examined, and case discussed with day-time resident. Patient tolerated PRBC transfusion and received Desmopressin IV X1 this morning. Discussed with heme-onc, monitor sodium level, and possible discharge tomorrow. Pending official read of echocardiogram Discussed with family at bedside. Assessment/Plan 1) Von Willebrands Dz, Type 1 * Heme-onc (Dr. Nadiya Ley) on board * patient transfused 2U PRBC-->no adverse reactions noted * Desmopressin 0.3mcg/kg of body weight given IV today * Patient to be discharged in the AM on intranasal desmopressin and follow up with Dr. Ley outpatient * Head CT (04/27/17): no acute intracranial pathology identifed 2) Iron deficiency Anemia * Heme-onc (Dr. Nadiya Ley) on board * patient transfused 2U PRBC during hospitalization * Ferrlecit 125mg IVPB daily for 5 days (active since 04/27/17) * Hemoglobin 7.3-->9.5 3) Hematemesis * GI (Dr. Ramírez) on board * EGD (04/27/17): Z-line regular, normal esophagus, gastritis, normal examined duodenum, no specimens collected * Protonix 40mg PO daily * Full liquid and advanced as tolerated 4) Hypothyroidism * c/w home Synthroid 125mg PO Daily 5) Murmur * f/u ECHO-->pending official read 6) Prophylaxis * NS 100 cc/hr * Zofran 4mg IVQ 6hour PRN nausea/vomitting * Protonix 40mg PO daily for GI ppx * Contraindications to VTE secondary to suspected GI bleed and VWK
[2017-04-29] MEDS: Sodium Chloride 0.9% 1,000 ML IV SCH ×2 (01:09→10:23)
[2017-04-29] MEDS: Lactated Ringer's 500 ML IV SCH (03:45)
[2017-04-29] MEDS: Levothyroxine 125 MCG TAB PO SCH (07:18)
[2017-04-29 07:34] LABS: BASO % 0.6 % (0.0-2.0); EOS # 0.2 K/uL (0.0-0.7); EOS % 3.5 % (0.0-4.0); LYMPH # 1.7 K/uL (1.0-4.3); LYMPH % 28.9 % (20.0-40.0); MEAN PLATELET VOLUME 8.9 fL (7.2-11.7); MONO # 0.4 K/uL (0.0-0.8); NRBC % 0.1 % (0.0-2.0); RED CELL DISTRIBUTION WIDTH 16.2 % (11.5-14.5); WHITE BLOOD COUNT 5.9 K/uL (4.8-10.8)
[2017-04-29 07:56] LABS: CHLORIDE 83 mmol/L (98-107)
[2017-04-29 07:58] LABS: GFR AFRICAN-AMERICAN > 60
[2017-04-29 07:59] LABS: ALB/GLOB RATIO 1.4 (1.0-2.1); ALKALINE PHOSPHATASE 181 U/L (38-126); ALT/SGPT 70 U/L (9-52); AST/SGOT 109 U/L (14-36); BILIRUBIN,TOTAL 1.5 mg/dL (0.2-1.3); BLOOD UREA NITROGEN 8 mg/dL (7-17); CALCIUM 7.9 mg/dl (8.6-10.4); CARBON DIOXIDE 21 mmol/L (22-30); GLUCOSE,RANDOM 99 mg/dL (65-105); MAGNESIUM 1.8 mg/dL (1.6-2.3); PHOSPHOROUS 3.3 mg/dL (2.5-4.5); TOTAL PROTEIN 7.6 g/dL (6.3-8.3)
[2017-04-29 08:10] LABS: HEMATOCRIT 28.3 % (34.0-47.0); MEAN CELL VOLUME 78.5 fL (81.0-99.0); MEAN CORPUSCULAR HEMOGLOBIN 27.8 pg (27.0-31.0); MEAN CORPUSCULAR HGB CONC 35.5 g/dL (33.0-37.0)
[2017-04-29 08:11] LABS: SODIUM 117 mmol/L (132-148)
--- NOTE | 2017-04-29 09:15 | CP.PCM.PN ---
Subjective - Date & Time of Evaluation Date of Evaluation: 04/29/17 Time of Evaluation: 09:00 - Subjective Subjective: Medicine Note- Hospitalist Service Patient was seen and examined at bedside. Patient reports she has bilateral lower leg pain, she says the pain kept her up all night. Patient denies any additional acute complaints. No events overnight, per nursing. Objective - Vital Signs/Intake and Output Vital Signs (last 24 hours): Temp Pulse Resp BP Pulse Ox 98.3 F 65 20 125/79 97 04/29/17 05:00 04/29/17 05:00 04/29/17 05:00 04/29/17 05:00 04/29/17 05:00 Intake and Output: 04/29/17 04/29/17 06:59 18:59 Intake Total 2039 Balance 2039 - Medications Medications: Current Medications Ferric Sodium Gluconate Complex (Ferrlecit) 125 mg IVPB DAILY [facility] Stop: 05/02/17 18:01 Last Admin: 04/28/17 09:08 Dose: 125 mg Sodium Chloride (Sodium Chloride 0.9%) 1,000 mls @ 100 mls/hr IV .Q10H [facility] Last Admin: 04/29/17 01:09 Dose: Not Given Levothyroxine Sodium (Synthroid) 125 mcg PO DAILY@0630 [facility] Last Admin: 04/29/17 07:18 Dose: 125 mcg Ondansetron HCl (Zofran Inj) 4 mg IVP Q6 PRN PRN Reason: Nausea/Vomiting Last Admin: 04/28/17 09:33 Dose: 4 mg Pantoprazole Sodium (Protonix Ec Tab) 40 mg PO DAILY [facility] Last Admin: 04/28/17 09:09 Dose: 40 mg Pneumococcal Polyvalent Vaccine (Pneumovax 23 Vaccine) 0.5 ml IM .ONCE ONE Stop: 04/29/17 10:01 - Labs Labs: 04/29/17 07:11 04/29/17 07:11 PT 12.8 SECONDS (9.7-12.2) H 04/27/17 05:59 INR 1.1 04/27/17 05:59 APTT 29 SECONDS (21-34) D 04/27/17 05:59 - Constitutional Appears: Non-toxic, No Acute Distress - Head Exam Head Exam: ATRAUMATIC, NORMAL INSPECTION, NORMOCEPHALIC - Eye Exam Eye Exam: Normal appearance Pupil Exam: NORMAL ACCOMODATION, PERRL - ENT Exam ENT Exam: Mucous Membranes Moist - Respiratory Exam Respiratory Exam: Clear to Ausculation Bilateral, NORMAL BREATHING PATTERN. absent: Prolonged Expiratory Phase, Rales, Rhonchi, Wheezes - Cardiovascular Exam Cardiovascular Exam: REGULAR RHYTHM, Murmur - GI/Abdominal Exam GI & Abdominal Exam: Soft, Normal Bowel Sounds. absent: Tenderness, Diminished Bowel Sounds, Hypoactive Bowel Sounds, Pulsatile Mass - Extremities Exam Extremities Exam: Normal Capillary Refill, Normal Inspection - Neurological Exam Neurological Exam: Alert, Awake, Oriented x3 - Psychiatric Exam Psychiatric exam: Normal Affect, Normal Mood - Skin Skin Exam: Dry, Intact, Normal Color, Warm Assessment and Plan - Assessment and Plan (Free Text) Assessment: Assessment/Plan 1) Von Willebrands Dz, Type 1 * Heme-onc (Dr. Nadiya Ley) on board * patient transfused 2U PRBC-->no adverse reactions noted * Desmopressin 0.3mcg/kg of body weight given IV today * Head CT (04/27/17): no acute intracranial pathology identifed 2) Iron deficiency Anemia * Heme-onc (Dr. Nadiya Ley) on board * patient transfused 2U PRBC during hospitalization * Ferrlecit 125mg IVPB daily for 5 days (active since 04/27/17) * Hemoglobin 7.3-->9.5--> 10.0 3) Hematemesis * GI (Dr. Ramírez) on board * EGD (04/27/17): Z-line regular, normal esophagus, gastritis, normal examined duodenum, no specimens collected * Protonix 40mg PO daily * Full liquid and advanced as tolerated 4) Hypothyroidism * c/w home Synthroid 125mg PO Daily 5) Murmur * f/u ECHO-->pending official read 6) Prophylaxis * NS 100 cc/hr * Zofran 4mg IVQ 6hour PRN nausea/vomitting * Protonix 40mg PO daily for GI ppx * Contraindications to VTE secondary to suspected GI bleed and VWK 7) Hyponatremia * Na- 117 today * Continue IVF NS @ 100cc/hr 8) Hypokalemia * K+- 3.0 * Given KCL 40meq 9) Transaminitis * AST/ALT/ALP- 109/70/181- will continue to monitor 10) Bilateral Leg Pain * Venous Dopplers- negative
[2017-04-29] MEDS ORDERED: Pneumococcal 23-Valent Vaccine IM ONE (10:00)
[2017-04-29] MEDS: Ferric Sodium Gluconat Complex 62.5 mg/5 ml Vial IVPB SCH (10:20)
[2017-04-29] MEDS: Pantoprazole 40 mg EC Tab PO SCH (10:22)
--- NOTE | 2017-04-29 22:07 | CP.PCM.PN ---
Subjective - Date & Time of Evaluation Date of Evaluation: 04/29/17 Time of Evaluation: 20:00 - Subjective Subjective: Having gingival bleeding Objective - Vital Signs/Intake and Output Vital Signs (last 24 hours): Temp Pulse Resp BP Pulse Ox 97.6 F 65 18 126/74 96 04/29/17 15:09 04/29/17 15:09 04/29/17 15:09 04/29/17 15:09 04/29/17 15:09 - Medications Medications: Current Medications Sodium Chloride (Sodium Chloride 0.9%) 1,000 mls @ 100 mls/hr IV .Q10H [facility] Last Admin: 04/29/17 10:23 Dose: 100 mls/hr Levothyroxine Sodium (Synthroid) 125 mcg PO DAILY@0630 [facility] Last Admin: 04/29/17 07:18 Dose: 125 mcg Ondansetron HCl (Zofran Inj) 4 mg IVP Q6 PRN PRN Reason: Nausea/Vomiting Last Admin: 04/28/17 09:33 Dose: 4 mg Pantoprazole Sodium (Protonix Ec Tab) 40 mg PO DAILY [facility] Last Admin: 04/29/17 10:22 Dose: 40 mg - Labs Labs: PT 12.8 SECONDS (9.7-12.2) H 04/27/17 05:59 INR 1.1 04/27/17 05:59 APTT 29 SECONDS (21-34) D 04/27/17 05:59 - Head Exam Head Exam: ATRAUMATIC - Eye Exam Eye Exam: Normal appearance - ENT Exam Additional comments: bleeding from gums - Respiratory Exam Respiratory Exam: NORMAL BREATHING PATTERN - Cardiovascular Exam Cardiovascular Exam: +S1, +S2 - GI/Abdominal Exam GI & Abdominal Exam: Normal Bowel Sounds - Extremities Exam Extremities Exam: Normal Inspection Assessment and Plan (1) Von Willebrand disease, type I Assessment & Plan: acute gingival bleeding s/p ddavp but given hyponatremia; cannot redose will give 2U cryopercipitate may require humate p if bleeding continues Status: Chronic
[2017-04-29] MEDS ORDERED: Sodium Chloride 0.9% 1,000 ML IV ONE (23:48)
[2017-04-30] MEDS ORDERED: DiphenhydrAMINE 50 mg/ml Inj IVP STA (00:05)
[2017-04-30] MEDS ORDERED: DOPamine 400mg/250ml D5W 400 MG/250 ML BAG IV PRN (00:10)
[2017-04-30 00:15] LABS: EOS # 0.2 K/uL (0.0-0.7); MONO # 0.5 K/uL (0.0-0.8)
[2017-04-30 00:17] LABS: BASO % 0.5 % (0.0-2.0); EOS % 3.1 % (0.0-4.0); HEMATOCRIT 22.2 % (34.0-47.0); LYMPH # 1.3 K/uL (1.0-4.3); LYMPH % 17.9 % (20.0-40.0); MEAN CELL VOLUME 78.2 fL (81.0-99.0); MEAN CORPUSCULAR HEMOGLOBIN 28.2 pg (27.0-31.0); MEAN CORPUSCULAR HGB CONC 36.1 g/dL (33.0-37.0); MEAN PLATELET VOLUME 8.8 fL (7.2-11.7); MONO % 6.7 % (0.0-10.0); RED CELL DISTRIBUTION WIDTH 16.4 % (11.5-14.5); WHITE BLOOD COUNT 7.2 K/uL (4.8-10.8)
[2017-04-30 00:30] LABS: INR 1.3
[2017-04-30 00:48] LABS: ALB/GLOB RATIO 1.3 (1.0-2.1); ALKALINE PHOSPHATASE 145 U/L (38-126); ALT/SGPT 69 U/L (9-52); AST/SGOT 96 U/L (14-36); BILIRUBIN,TOTAL 1.4 mg/dL (0.2-1.3); BLOOD UREA NITROGEN 10 mg/dL (7-17); CALCIUM 7.6 mg/dl (8.6-10.4); CARBON DIOXIDE 21 mmol/L (22-30); CHLORIDE 84 mmol/L (98-107); GFR AFRICAN-AMERICAN > 60; GLUCOSE,RANDOM 118 mg/dL (65-105); MAGNESIUM 1.7 mg/dL (1.6-2.3); POTASSIUM 2.7 mmol/L (3.6-5.2); TOTAL PROTEIN 6.3 g/dL (6.3-8.3); URIC ACID 3.1 mg/dL (2.2-7.5)
[2017-04-30 00:50] LABS: SODIUM 115 mmol/L (132-148)
[2017-04-30] MEDS ORDERED: Potassium Chloride 20 mEq/15 ml LIQ UD PO STA (00:50)
[2017-04-30] MEDS ORDERED: Pantoprazole 80 MG in Sodium Chloride 0.9% 100 ML IVP SCH (01:00)
--- NOTE | 2017-04-30 01:07 | CP.CCUPN ---
CCU Subjective - Physician Review Events Since Last Encounter (Free Text): 04/30/17 01:06 The Patient was seen and examined at the bedside, Medical records reviewed, and management issues were discussed and formulated, All clinical/lab/hemodynamic/radiographic data were reviewed Events reviewed 46 Y/O F with Von Willebrand Disease and Hypothyroid who initially presented to the ER on 04/27 due to feeling lightheaded, Dizziness and one episode of hematemesis. Patient states she feels cold and nauseous. Shew was just discharged from [facility] few minutes, and she was hospitalized there for the same reason Pt has received DDAVP, FFP and Cryoprecipitate. Around midnight, ICU consult called for hypotension and bleeding from the gums Labs significant for severe hyponatremia and hypokalemia On exam, Alert, Awake and oriented, No CP/SOB, No fevers/chills/sweats, Only C/ O Nausea she looks cold and clammy, she receiving IV fluids bolus and BP improving initially SBP 60s and now up to 100s Stat labs drawn and patient started on dopamine drip in attempt to minimize IV Fluids to avoid further drop in sodium level While she is getting transferred to ICU, she had one episode of large vomiting appear to be coffee ground or could be stomach content mixed with blood from the gum bleeding In the ICU, BP{ better, BP now 105/50, labs results back with Na further qown 117-->115, K of 2.7 04/30/17 01:[address] (04/27/17): no acute intracranial pathology identified EGD (04/27/17): Z-line regular, normal esophagus, gastritis, normal examined duodenum, no specimens collected CCU Objective - Vital Signs / Intake & Output Vital Signs (Last 4 hours): Vital Signs Pulse Resp BP 04/30/17 00:28 76 18 103/53 L - Physical Exam Pupils: Positive for: PERRL. Negative for: Sluggish, Non-Reactive, Pinpoint Extroacular Muscles: Positive for: EOMI. Negative for: Gaze Palsy, Entrapment Conjunctiva: Positive for: Other (Pallor). Negative for: Injected, Icteric Ears: Positive for: Normal Mouth: Positive for: Dry Nose (External): Positive for: Atraumatic Neck: Positive for: Normal Range of Motion, Trachea Midline. Negative for: Meningeal Signs, MIDLINE TENDERNESS, Paraspinal Tenderness, JVD, Lymphadenopathy , Bruit, Other Respiratory/Chest: Positive for: Clear to Auscultation, Good Air Exchange. Negative for: Respiratory Distress, Accessory Muscle Use, Wheezes, Decreased Breath Sounds, Rales, Retracting, Rhonchi Cardiovascular: Positive for: Regular Rate and Rhythm, Normal S1, S2, Peripheal Pulses Present. Negative for: Murmurs, Irregular Rhythm, Tachycardic, Bradycardic Abdomen: Positive for: Normal Bowel Sounds. Negative for: Tenderness, Distention, Peritoneal Signs Neurological: Positive for: GCS=15, CN II-XII Intact, Speech Normal, Motor Func Grossly Intact, Normal Sensory Function Psychiatric: Positive for: Alert, Oriented x 3, Normal Insight, Normal Concentration - Medications Active Medications: Active Medications Generic Name Dose Route Start Last Admin Trade Name Freq PRN Reason Stop Dose Admin Dopamine HCl/Dextrose 400 mg in 250 mls @ 4.423 mls/hr 04/30/17 00:10 Dopamine 400mg/250ml D5w IV .Q24H PRN TITRATE PER MD ORDER Protocol 2 MCG/KG/MIN Pantoprazole Sodium 80 mg/ 100 mls @ 10 mls/hr 04/30/17 00:45 Sodium Chloride IVP .Q10H [facility] Potassium Chloride 10 meq in 100 mls @ 100 mls/hr 04/30/17 01:30 Potassium Chloride 10 Meq/100 Ml IVPB 04/30/17 05:29 Q1H [facility] Levothyroxine Sodium 125 mcg 04/29/17 06:30 04/29/17 07:18 Synthroid PO 125 mcg DAILY@0630 [facility] Administration Ondansetron HCl 4 mg 04/27/17 12:19 04/30/17 00:40 Zofran Inj IVP 4 mg Q6 PRN Administration Nausea/Vomiting - Patient Studies Lab Studies: Lab Studies 04/30/17 04/30/17 04/30/17 Range/Units 00:15 00:13 00:13 WBC 7.2 (4.8-10.8) K/uL RBC 2.84 L (3.80-5.20) Mil/uL Hgb 8.0 L D (11.0-16.0) g/dL Hct 22.2 L (34.0-47.0) % MCV 78.2 L (81.0-99.0) fL MCH 28.2 (27.0-31.0) pg MCHC 36.1 (33.0-37.0) g/dL RDW 16.4 H (11.5-14.5) % Plt Count 179 (130-400) K/uL MPV 8.8 (7.2-11.7) fL Neut % (Auto) 71.8 (50.0-75.0) % Lymph % (Auto) 17.9 L (20.0-40.0) % Dyer % (Auto) 6.7 (0.0-10.0) % Eos % (Auto) 3.1 (0.0-4.0) % Baso % (Auto) 0.5 (0.0-2.0) % Neut # 5.1 (1.8-7.0) K/uL Lymph # 1.3 (1.0-4.3) K/uL Dyer # 0.5 (0.0-0.8) K/uL Eos # 0.2 (0.0-0.7) K/uL Baso # 0.0 (0.0-0.2) K/uL PT 14.5 H (9.7-12.2) SECONDS INR 1.3 APTT 54 H D (21-34) SECONDS Sodium 115 L* (132-148) mmol/L Potassium 2.7 L (3.6-5.2) mmol/L Chloride 84 L (98-107) mmol/L Carbon Dioxide 21 L (22-30) mmol/L Anion Gap 13 (10-20) BUN 10 (7-17) mg/dL Creatinine 0.9 (0.7-1.2) MG/DL Est GFR ( Amer) > 60 Est GFR (Non-Af Amer) > 60 Random Glucose 118 H (65-105) mg/dL Uric Acid 3.1 (2.2-7.5) mg/dL Calcium 7.6 L (8.6-10.4) mg/dl Magnesium 1.7 (1.6-2.3) mg/dL Total Bilirubin 1.4 H (0.2-1.3) mg/dL AST 96 H (14-36) U/L ALT 69 H (9-52) U/L Alkaline Phosphatase 145 H (38-126) U/L Total Protein 6.3 (6.3-8.3) g/dL Albumin 3.6 (3.5-5.0) g/dL Globulin 2.7 (2.2-3.9) gm/dL Albumin/Globulin Ratio 1.3 (1.0-2.1) Laboratory Results - last 24 hr 04/30/17 04/30/17 04/30/17 00:13 00:13 00:15 WBC 7.2 RBC 2.84 L Hgb 8.0 L D Hct 22.2 L MCV 78.2 L MCH 28.2 MCHC 36.1 RDW 16.4 H Plt Count 179 MPV 8.8 Neut % (Auto) 71.8 Lymph % (Auto) 17.9 L Dyer % (Auto) 6.7 Eos % (Auto) 3.1 Baso % (Auto) 0.5 Neut # 5.1 Lymph # 1.3 Dyer # 0.5 Eos # 0.2 Baso # 0.0 PT 14.5 H INR 1.3 APTT 54 H D Sodium 115 L* Potassium 2.7 L Chloride 84 L Carbon Dioxide 21 L Anion Gap 13 BUN 10 Creatinine 0.9 Est GFR ( Amer) > 60 Est GFR (Non-Af Amer) > 60 Random Glucose 118 H Uric Acid 3.1 Calcium 7.6 L Magnesium 1.7 Total Bilirubin 1.4 H AST 96 H ALT 69 H Alkaline Phosphatase 145 H Total Protein 6.3 Albumin 3.6 Globulin 2.7 Albumin/Globulin Ratio 1.3 EKG/Cardiology Studies: Cardiology / EKG Studies 04/30/17 00:50 EKG [ELECTROCARDIOGRAM] Stat Comment: Mode Of Transportation: Reason For Exam: hypotensive Review of Systems - Review of Systems Systems not reviewed;Unavailable: Acuity of Condition - Respiratory Respiratory: absent: As Per HPI, Cough, Dyspnea, Hemoptysis, Dyspnea on Exertion , Wheezing, Snoring, Stridor, Pain on Inspiration, Chest Congestion, Excessive Mucous Production, Change in Mucous Color, Pain with Coughing, Other, UNREMARKABLE - Gastrointestinal Gastrointestinal: absent: As Per HPI, Abdominal Pain, Belching, Bloating, Change in Bowel Habits, Change in Stool Character, Coffee Ground Emesis, Constipation, Cramping, Diarrhea, Dyspepsia, Dysphagia, Early Satiety, Excessive Flatus, Fecal Incontinence, Heartburn, Hematemesis, Hematochezia, Loose Stools, Melena, Nausea, Odynophagia, Temesmus, Vomiting, Other, UNREMARKABLE - Neurological Neurological: Disequilibrium, Dizziness, Numbness. absent: Confusion, Convulsions, Focal Weakness Assessment/Plan (1) Anemia associated with acute blood loss Current Visit: Yes Status: Acute Comment: Type and screen Transfuse 2more units RBC CBC Q 8H PPI drip Anemia profils Discussed with abut TLC placement, consent obtained (2) Von Willebrand disease, type I Current Visit: Yes Status: Chronic Comment: Patient transfused 2U PRBC and received Desmopressin 0.3mcg/kg Heme-onc Recs appretiated (3) Hypotension Current Visit: No Status: Acute Comment: Transfer to ICU for hemodynamic monitoring Dopamin drip MAP 60-70 (4) Hyponatremia Current Visit: Yes Status: Acute Comment: From Desmopressin injection Fluid restriction Salt tabblets (5) Gingival bleeding Current Visit: Yes Status: Acute - Assessment and Plan (Free Text) Assessment: TOTAL CRITICAL CARE TIEME 65 MINUTES FULL CODE
[2017-04-30] MEDS: Pantoprazole 80 MG in Sodium Chloride 0.9% 100 ML IVP SCH ×4 (01:11→20:45)
[2017-04-30 02:33] LABS: CREATININE, RANDOM URINE 58.6 mg/dL
--- NOTE | 2017-04-30 03:29 | CP.PCM.PN ---
<Munira Montano - Last Filed: 04/30/17 03:21> Subjective - Date & Time of Evaluation Date of Evaluation: 04/29/17 Time of Evaluation: 19:00 - Subjective Subjective: Patient was noted to have bleeding from the gums. Last hgb in the Am was 10. Heme/Onc notified and 2U cryopercipitate were administered (completed around (PM ). The bleeding stopped. Patient's vitals were stable. At around midnight we were paged because the patient was noted to be hypotensive 61/39. Fluid bolus was started. CBC/CMP/coags/type cross were collected. Patient was complaining of dizziness but stated she felt better than before. She seemed to be more lethargic than earlier. Labs from this morning showed low potassium and low sodium. Patient has been given desmopression during this admission. ICU was consulted. Patient was started on dopamine drip. BP improved to systolic of 103/ 53. Afebrile, saturating 100% RA, HR 76. Fluids were stopped due to low sodium. Benadryl and SoluMedrol were given as patient could have has allergic reaction to cryoprecipitate. EKG ordered. David ordered. 2 Units PRBC ordered. Patient was transferred to ICU for further management. Please see ICU consult note for further management. Munira Montano PGY1 Objective - Vital Signs/Intake and Output Vital Signs (last 24 hours): Temp Pulse Resp BP Pulse Ox 97.8 F 87 21 108/48 L 96 04/30/17 01:00 04/30/17 02:46 04/30/17 02:46 04/30/17 02:46 04/30/17 00:25 Intake and Output: 04/29/17 04/30/17 18:59 06:59 Intake Total 353.9 Output Total 150 Balance 203.9 - Medications Medications: Current Medications Dopamine HCl/Dextrose (Dopamine 400mg/250ml D5w) 400 mg in 250 mls @ 4.423 mls/ hr IV .Q24H PRN; Protocol; 2 MCG/KG/MIN PRN Reason: TITRATE PER MD ORDER Last Admin: 04/30/17 00:25 Dose: 2.26 mcg/kg/min, 5 mls/hr Pantoprazole Sodium 80 mg/ (Sodium Chloride) 100 mls @ 10 mls/hr IVP .Q10H [facility] Last Admin: 04/30/17 01:11 Dose: 10 mls/hr Potassium Chloride (Potassium Chloride 10 Meq/100 Ml) 10 meq in 100 mls @ 100 mls/hr IVPB Q1H [facility] Stop: 04/30/17 05:29 Last Admin: 04/30/17 02:08 Dose: 100 mls/hr Levothyroxine Sodium (Synthroid) 125 mcg PO DAILY@0630 [facility] Last Admin: 04/29/17 07:18 Dose: 125 mcg - Labs Labs: 04/30/17 00:15 04/30/17 00:13 PT 14.5 SECONDS (9.7-12.2) H 04/30/17 00:13 INR 1.3 04/30/17 00:13 APTT 54 SECONDS (21-34) H D 04/30/17 00:13 <Darrel Goldman P - Last Filed: 04/30/17 07:21> Objective - Vital Signs/Intake and Output Vital Signs (last 24 hours): Temp Pulse Resp BP Pulse Ox 98.2 F 75 16 95/51 L 100 04/30/17 04:00 04/30/17 05:45 04/30/17 05:45 04/30/17 05:45 04/30/17 04:00 Intake and Output: 04/30/17 04/30/17 06:59 18:59 Intake Total 517.8 Output Total 1050 Balance -532.2 - Medications Medications: Current Medications Dopamine HCl/Dextrose (Dopamine 400mg/250ml D5w) 400 mg in 250 mls @ 4.423 mls/ hr IV .Q24H PRN; Protocol; 2 MCG/KG/MIN PRN Reason: TITRATE PER MD ORDER Last Admin: 04/30/17 00:25 Dose: 2.26 mcg/kg/min, 5 mls/hr Pantoprazole Sodium 80 mg/ (Sodium Chloride) 100 mls @ 10 mls/hr IVP .Q10H [facility] Last Admin: 04/30/17 01:11 Dose: 10 mls/hr Levothyroxine Sodium (Synthroid) 125 mcg PO DAILY@0630 [facility] Last Admin: 04/29/17 07:18 Dose: 125 mcg - Labs Labs: 04/30/17 05:49 04/30/17 05:49 PT 14.5 SECONDS (9.7-12.2) H 04/30/17 00:13 INR 1.3 04/30/17 00:13 APTT 54 SECONDS (21-34) H D 04/30/17 00:13 Attending/Attestation - Attestation I have personally seen and examined this patient.: Yes I have fully participated in the care of the patient.: Yes I have reviewed all pertinent clinical information, including history, physical exam and plan: Yes Notes (Text): 04/30/17 07:11 In addition Patient had vomited blood mixed with food, felt better after the vomit, was not bleeding form the gum actively, labs repeated. Repeat labs showed worsening of the hyponatemia, and hypokalemia, and drop of hemoglobin a part of it probably form the same reason of the hyponatremia from siadh. potassium was aggressively replaced which can cause intracellular displacement of fluid and can improve the hyponatremia, ivf was held, 2g oral sodium chloride ordered and could be given periodically to control and correct rate of hyponatremia. Hemoglobin improved without transfusion, blood is on arranged and on hold, empirically she is on protonix drip.
[2017-04-30 05:44] LABS: VENOUS BLOOD GAS BASE EXCESS -6.3 mmol/L (0.0-2.0); VENOUS BLOOD GAS PCO2 40 mmHg (40-60)
[2017-04-30 05:59] LABS: BASO % 0.4 % (0.0-2.0); EOS # 0.1 K/uL (0.0-0.7); EOS % 0.5 % (0.0-4.0); HEMATOCRIT 25.2 % (34.0-47.0); LYMPH # 0.9 K/uL (1.0-4.3); LYMPH % 6.9 % (20.0-40.0); MEAN CELL VOLUME 78.1 fL (81.0-99.0); MEAN CORPUSCULAR HGB CONC 35.9 g/dL (33.0-37.0); MEAN PLATELET VOLUME 8.9 fL (7.2-11.7); MONO # 0.3 K/uL (0.0-0.8); MONO % 2.2 % (0.0-10.0); PLATELET COUNT 217 K/uL (130-400); RED CELL DISTRIBUTION WIDTH 16.5 % (11.5-14.5); WHITE BLOOD COUNT 12.5 K/uL (4.8-10.8)
[2017-04-30 06:30] LABS: CHLORIDE 91 mmol/L (98-107); POTASSIUM 5.3 mmol/L (3.6-5.2)
[2017-04-30 06:32] LABS: ALB/GLOB RATIO 1.6 (1.0-2.1); ALKALINE PHOSPHATASE 179 U/L (38-126); ALT/SGPT 74 U/L (9-52); AST/SGOT 102 U/L (14-36); BILIRUBIN,TOTAL 1.2 mg/dL (0.2-1.3); BLOOD UREA NITROGEN 10 mg/dL (7-17); CARBON DIOXIDE 15 mmol/L (22-30); GFR AFRICAN-AMERICAN > 60; GLUCOSE,RANDOM 152 mg/dL (65-105); TOTAL PROTEIN 6.9 g/dL (6.3-8.3)
[2017-04-30 06:33] LABS: CALCIUM 8.5 mg/dl (8.6-10.4); PHOSPHOROUS 3.3 mg/dL (2.5-4.5)
[2017-04-30 06:37] LABS: SODIUM 120 mmol/L (132-148)
[2017-04-30] MEDS: Levothyroxine 125 MCG TAB PO SCH (07:23)
[2017-04-30 08:28] LABS: METAMYELOCYTE 1 % (0-0); NEUTROPHIL 85 % (50-75); TOTAL CELLS COUNTED 100
[2017-04-30 08:31] LABS: GIANT PLATELETS PRESENT; LARGE PLATELETS PRESENT
--- NOTE | 2017-04-30 08:34 | CP.PCM.PN ---
Subjective - Date & Time of Evaluation Date of Evaluation: 04/30/17 Time of Evaluation: 08:30 - Subjective Subjective: Medical Attending Note Follow-up: Patient seen and examined. Patient denies headache, denies chills, denies chest pain, denies abdominal pain , denies nausea, reports constipation (has not had a bowel movement for 3 days) , and denies further episodes of bleeding this morning. Objective - Vital Signs/Intake and Output Vital Signs (last 24 hours): Temp Pulse Resp BP Pulse Ox 98.2 F 75 16 95/51 L 100 04/30/17 04:00 04/30/17 05:45 04/30/17 05:45 04/30/17 05:45 04/30/17 04:00 Intake and Output: 04/30/17 04/30/17 06:59 18:59 Intake Total 517.8 Output Total 1050 Balance -532.2 - Medications Medications: Current Medications Dopamine HCl/Dextrose (Dopamine 400mg/250ml D5w) 400 mg in 250 mls @ 4.423 mls/ hr IV .Q24H PRN; Protocol; 2 MCG/KG/MIN PRN Reason: TITRATE PER MD ORDER Last Admin: 04/30/17 00:25 Dose: 2.26 mcg/kg/min, 5 mls/hr Pantoprazole Sodium 80 mg/ (Sodium Chloride) 100 mls @ 10 mls/hr IVP .Q10H [facility] Last Admin: 04/30/17 01:11 Dose: 10 mls/hr Levothyroxine Sodium (Synthroid) 125 mcg PO DAILY@0630 [facility] Last Admin: 04/30/17 07:23 Dose: 125 mcg - Labs Labs: 04/30/17 05:49 04/30/17 05:49 PT 14.5 SECONDS (9.7-12.2) H 04/30/17 00:13 INR 1.3 04/30/17 00:13 APTT 54 SECONDS (21-34) H D 04/30/17 00:13 - Constitutional Appears: Non-toxic, No Acute Distress - Head Exam Head Exam: NORMAL INSPECTION - Eye Exam Eye Exam: EOMI - ENT Exam ENT Exam: Mucous Membranes Dry Additional comments: open mouth: no bleeding noted - Respiratory Exam Respiratory Exam: Clear to Ausculation Bilateral, NORMAL BREATHING PATTERN. absent: Rales, Rhonchi - Cardiovascular Exam Cardiovascular Exam: REGULAR RHYTHM, +S1, +S2 - GI/Abdominal Exam GI & Abdominal Exam: Soft, Normal Bowel Sounds. absent: Distended, Firm, Guarding, Rigid, Tenderness, Rebound - Extremities Exam Extremities Exam: absent: Pedal Edema, Tenderness - Neurological Exam Neurological Exam: Alert, Awake, Oriented x3 - Psychiatric Exam Psychiatric exam: Normal Affect, Normal Mood - Skin Skin Exam: Normal Color, Warm. absent: Petechiae, Rash Assessment and Plan (1) Anemia associated with acute blood loss Status: Acute (2) Gingival bleeding Status: Acute (3) Hyponatremia Status: Acute (4) Von Willebrand disease, type I Status: Chronic (5) Constipation Status: Acute (6) Hypotension Status: Acute (7) Prophylactic measure Status: Acute - Assessment and Plan (Free Text) Assessment: Assessment/Plan 1) Von Willebrands Dz, Type 1 * Heme-onc (Dr. Nadiya Ley) on board * patient transfused 2U PRBC-->no adverse reactions noted during hospitalizatoin * Desmopressin received on 04/28/17 resulting hyponatreamia * Head CT (04/27/17): no acute intracranial pathology identifed * Overnight, patient received cryoprecitate for recurrent gingival bleeding, and transferred to the ICU; patient received Decadron overnight * No further episodes of bleeding noted 2) Iron deficiency Anemia * Heme-onc (Dr. Nadiya Ley) on board * patient transfused 2U PRBC during hospitalization * off Ferrlecit 125mg IVPB daily * Hemoglobin 7.3-->9.5-->10-->8-->9.5 3) Hematemesis * GI (Dr. Ramírez) on board * EGD (04/27/17): Z-line regular, normal esophagus, gastritis, normal examined duodenum, no specimens collected * Protonix 40mg PO daily * Full liquid and advanced as tolerated 4) Hypothyroidism * c/w home Synthroid 125mg PO Daily 5) Murmur * f/u ECHO-->pending official read 6) Hyponatremia * no focal neurologic deficits * likely secondary to recent desmopression * improved to 120, continue to monitor 7) Constipation * Will start stool softeners, patient advised to not strain 8) Hypotension * patient is currently on dopamine drip * BP:90/48 9) Prophylaxis * Protonix 40mg PO daily for GI ppx * Contraindications to VTE secondary to suspected GI bleed and VWK
[2017-05-01] MEDS: Levothyroxine 125 MCG TAB PO SCH (06:00)
[2017-05-01 06:34] LABS: BASO % 0.1 % (0.0-2.0); LYMPH # 1.5 K/uL (1.0-4.3); LYMPH % 7.2 % (20.0-40.0); MEAN CORPUSCULAR HGB CONC 34.6 g/dL (33.0-37.0); MEAN PLATELET VOLUME 9.6 fL (7.2-11.7); MONO # 1.1 K/uL (0.0-0.8); MONO % 5.5 % (0.0-10.0); PLATELET COUNT 211 K/uL (130-400); RED CELL DISTRIBUTION WIDTH 17.2 % (11.5-14.5); WHITE BLOOD COUNT 20.3 K/uL (4.8-10.8)
[2017-05-01 06:35] LABS: CHLORIDE 99 mmol/L (98-107); POTASSIUM 5.8 mmol/L (3.6-5.2); SODIUM 127 mmol/L (132-148)
[2017-05-01 06:37] LABS: ALB/GLOB RATIO 1.4 (1.0-2.1); ALKALINE PHOSPHATASE 173 U/L (38-126); ALT/SGPT 59 U/L (9-52); AST/SGOT 67 U/L (14-36); BLOOD UREA NITROGEN 20 mg/dL (7-17); CARBON DIOXIDE 19 mmol/L (22-30); GFR AFRICAN-AMERICAN > 60; TOTAL PROTEIN 7.2 g/dL (6.3-8.3)
[2017-05-01 06:38] LABS: CALCIUM 8.4 mg/dl (8.6-10.4); GLUCOSE,RANDOM 150 mg/dL (65-105); MAGNESIUM 2.7 mg/dL (1.6-2.3); PHOSPHOROUS 2.9 mg/dL (2.5-4.5)
[2017-05-01 07:33] LABS: HEMATOCRIT 22.7 % (34.0-47.0); MEAN CELL VOLUME 80.9 fL (81.0-99.0); MEAN CORPUSCULAR HGB CONC 34.6 g/dL (33.0-37.0); MEAN PLATELET VOLUME 8.9 fL (7.2-11.7)
[2017-05-01 08:07] LABS: NEUTROPHIL 90 % (50-75); TOTAL CELLS COUNTED 100
[2017-05-01 08:08] LABS: GIANT PLATELETS PRESENT; LARGE PLATELETS PRESENT
--- NOTE | 2017-05-01 09:11 | VASCLAB ---
PROCEDURE: Lower Extremity Venous Duplex Exam. HISTORY: bilateral lower leg pain PRIORS: None. TECHNIQUE: Bilateral common femoral, femoral, popliteal and posterior tibial, peroneal and great saphenous veins were evaluated. Flow was assessed with color Doppler, compressibility, assessment of phasic flow and augmentation response. Report prepared by ROBERTO Lazo, RVT FINDINGS: RIGHT: 1. Common Femoral Vein: 1.1. Compressibility - Fully compressible: Thrombus - None : Flow - Phasic: Augmentation -Normal: Reflux - None. 2. Femoral Vein: 2.1. Compressibility - Fully compressible: Thrombus - None : Flow - Phasic: Augmentation -Normal: Reflux - None. 3. Popliteal Vein: 3.1. Compressibility - Fully compressible: Thrombus - None : Flow - Phasic: Augmentation -Normal: Reflux - None. 4. Posterior Tibial Vein: 4.1. Compressibility - Fully compressible: Thrombus - None: Flow - Phasic: Augmentation -Normal: Reflux - None. 5. Peroneal Vein: 5.1. Compressibility - Fully compressible: Thrombus - None: Flow - Phasic: Augmentation -Normal: Reflux - None. 6. Great Saphenous Vein: 6.1. Compressibility - Fully compressible: Thrombus - None: Flow - Phasic: Augmentation - Normal: Reflux - None. LEFT: 1. Common Femoral Vein: 1.1. Compressibility - Fully compressible: Thrombus - None: Flow - Phasic: Augmentation -Normal: Reflux - None. 2. Femoral Vein: 2.1. Compressibility - Fully compressible: Thrombus - None: Flow - Phasic: Augmentation -Normal: Reflux - None. 3. Popliteal Vein: 3.1. Compressibility - Fully compressible: Thrombus - None : Flow - Phasic: Augmentation -Normal: Reflux - None. 4. Posterior Tibial Vein: 4.1. Compressibility - Fully compressible: Thrombus - None: Flow - Phasic: Augmentation -Normal: Reflux - None. 5. Peroneal Vein: 5.1. Compressibility - Fully compressible: Thrombus - None: Flow - Phasic: Augmentation -Normal: Reflux - None. 6. Great Saphenous Vein: 6.1. Compressibility - Fully compressible: Thrombus - None: Flow - Phasic: Augmentation - Normal: Reflux - None. OTHER FINDINGS: Right: None significant. Left: None significant. IMPRESSION: Right: No evidence of deep or superficial vein thrombosis of the right lower extremity. Normal valve function noted of the right side. Left: No evidence of deep or superficial vein thrombosis of the left lower extremity. Normal valve function noted of the left side.
[2017-05-01] MEDS: Pantoprazole 40 mg EC Tab PO SCH (09:34)
[2017-05-01 10:55] LABS: RBC URINE 2 /hpf (0-3); URINE BACTERIA OCC (<OCC); URINE BILIRUBIN NEGATIVE (NEGATIVE); URINE BLOOD NEGATIVE (NEGATIVE); URINE COLOR Yellow (YELLOW); URINE GLUCOSE (UA) NORMAL (Normal); URINE KETONE NEGATIVE (NEGATIVE); URINE LEUKOCYTE ESTERASE 2+ Leu/uL (Negative); URINE PROTEIN NEGATIVE (NEGATIVE); URINE UROBILINOGEN NORMAL mg/dL (0.2-1.0); WBC CLUMPS MANY /hpf; WBC URINE 700 /hpf (0-5)
[2017-05-01] MEDS ORDERED: Iohexol 240 (50 ml) PO ONE (11:00)
--- NOTE | 2017-05-01 13:03 | CARD ---
APPROVED REPORT EKG Measurement Heart [id number] <Conclusion> Normal sinus rhythm Nonspecific ST and T wave abnormality Prolonged QT Abnormal ECG
--- NOTE | 2017-05-01 14:18 | CP.CCUPN ---
CCU Subjective - Physician Review Subjective (Free Text): 05/01/17 15:00 Patient seen and examined at bedside. No acute events overnight. No acute distress. Nursing staff reports no issues. Patient has not had episode of acute bleeding since 04/29/17. Patient denies fever, chills, N/V/D/C, chest pain, SOB, abdominal pain, and numbness or tingling. Today, ordered abdomen/pelvis CT with contrast to rule out suspected adrenal bleed as possible etiology of hyponatremia and hypotension. UA was also ordered due to incidental leukocytosis on routine labs. Critical Care Time Spent (in minutes): 90 CCU Objective - Vital Signs / Intake & Output Vital Signs (Last 4 hours): Vital Signs Temp Pulse Resp BP Pulse Ox 05/01/17 13:00 85 18 112/62 99 05/01/17 12:00 97.7 F 82 19 116/67 98 05/01/17 11:00 79 18 111/66 99 Intake and Output (Last 8hrs): Intake & Output 04/30/17 05/01/17 05/01/17 22:59 06:59 14:59 Intake Total 438.5 240 1040 Output Total 695 800 Balance -256.5 -560 1040 Intake: IV 20 Intake, IV Amount 118.5 0 Left Antecubital 54.5 Left Forearm 64.0 0 Oral 332 780 1025 Output: Urine 695 800 2-way Urethral 395 Urethral (David) 300 800 Other: # Bowel Movements 1 - Physical Exam Head: Positive for: Atraumatic, Normocephalic Pupils: Positive for: PERRL. Negative for: Sluggish, Non-Reactive, Pinpoint Extroacular Muscles: Positive for: EOMI. Negative for: Gaze Palsy, Entrapment Conjunctiva: Positive for: Normal. Negative for: Injected, Icteric Ears: Positive for: Normal Mouth: Positive for: Moist Mucous Membranes. Negative for: Trismus Nose (External): Positive for: Atraumatic Neck: Positive for: Normal Range of Motion, Trachea Midline. Negative for: Meningeal Signs, MIDLINE TENDERNESS, Paraspinal Tenderness, JVD, Lymphadenopathy , Bruit, Other Respiratory/Chest: Positive for: Clear to Auscultation, Good Air Exchange. Negative for: Respiratory Distress, Accessory Muscle Use, Wheezes, Decreased Breath Sounds, Rales, Retracting, Rhonchi Cardiovascular: Positive for: Regular Rate and Rhythm, Murmurs, Normal S1, S2, Peripheal Pulses Present. Negative for: Irregular Rhythm, Tachycardic, Bradycardic Abdomen: Positive for: Normal Bowel Sounds. Negative for: Tenderness, Distention, Peritoneal Signs, Rebound, Guarding Back: Positive for: Normal Inspection. Negative for: CVA Tenderness Upper Extremity: Positive for: Normal Inspection, Normal ROM, NORMAL PULSES, Neurovascularly Intact. Negative for: Cyanosis, Edema, Tenderness Lower Extremity: Positive for: Normal Inspection, NORMAL PULSES, Normal ROM, Neurovascularly Intact. Negative for: Edema, CALF TENDERNESS, Tenderness Neurological: Positive for: GCS=15, CN II-XII Intact, Speech Normal, Motor Func Grossly Intact, Normal Sensory Function Skin: Positive for: Warm, Dry, Normal Color. Negative for: Rashes Psychiatric: Positive for: Alert, Oriented x 3 - Medications Active Medications: Active Medications Generic Name Dose Route Start Last Admin Trade Name Freq PRN Reason Stop Dose Admin Docusate Sodium 100 mg 04/30/17 10:00 05/01/17 09:34 Colace PO 100 mg BID BRET Administration Dopamine HCl/Dextrose 400 mg in 250 mls @ 4.423 mls/hr 04/30/17 00:10 21:10 Dopamine 400mg/250ml D5w IV 0 mcg/kg/min .Q24H PRN 0 mls/hr TITRATE PER MD ORDER Titration Protocol 2 MCG/KG/MIN Levothyroxine Sodium 125 mcg 04/29/17 06:30 05/01/17 06:00 Synthroid PO 125 mcg DAILY@0630 BRET Administration Pantoprazole Sodium 40 mg 05/01/17 10:00 05/01/17 09:34 Protonix Ec Tab PO 40 mg DAILY BRET Administration - Patient Studies Lab Studies: Lab Studies 05/01/17 05/01/17 05/01/17 Range/Units 10:21 07:21 06:20 WBC 21.0 H (4.8-10.8) K/uL RBC 2.80 L (3.80-5.20) Mil/uL Hgb 7.8 L (11.0-16.0) g/dL Hct 22.7 L (34.0-47.0) % MCV 80.9 L (81.0-99.0) fL MCH 28.0 (27.0-31.0) pg MCHC 34.6 (33.0-37.0) g/dL RDW 17.0 H (11.5-14.5) % Plt Count 208 (130-400) K/uL MPV 8.9 (7.2-11.7) fL Neut % (Auto) (50.0-75.0) % Lymph % (Auto) (20.0-40.0) % [place] % (Auto) (0.0-10.0) % Eos % (Auto) (0.0-4.0) % Baso % (Auto) (0.0-2.0) % Neut # (1.8-7.0) K/uL Lymph # (1.0-4.3) K/uL [place] # (0.0-0.8) K/uL Eos # (0.0-0.7) K/uL Baso # (0.0-0.2) K/uL Neutrophils % (Manual) (50-75) % Band Neutrophils % (0-2) % Lymphocytes % (Manual) (20-40) % Monocytes % (Manual) (0-10) % Platelet Estimate (NORMAL) Large Platelets Giant Platelets Hypochromasia (manual) Poikilocytosis (manual Anisocytosis (manual) Sodium 127 L (132-148) mmol/L Potassium 5.8 H (3.6-5.2) mmol/L Chloride 99 (98-107) mmol/L Carbon Dioxide 19 L (22-30) mmol/L Anion Gap 15 (10-20) BUN 20 H (7-17) mg/dL Creatinine 1.1 (0.7-1.2) MG/DL Est GFR ( Amer) > 60 Est GFR (Non-Af Amer) 53 Random Glucose 150 H (65-105) mg/dL Calcium 8.4 L (8.6-10.4) mg/dl Phosphorus 2.9 (2.5-4.5) mg/dL Magnesium 2.7 H (1.6-2.3) mg/dL Total Bilirubin 1.0 (0.2-1.3) mg/dL AST 67 H D (14-36) U/L ALT 59 H D (9-52) U/L Alkaline Phosphatase 173 H (38-126) U/L Total Protein 7.2 (6.3-8.3) g/dL Albumin 4.2 (3.5-5.0) g/dL Globulin 3.1 (2.2-3.9) gm/dL Albumin/Globulin Ratio 1.4 (1.0-2.1) Urine Color Yellow (YELLOW) Urine Clarity Hazy (Clear) Urine pH 6.0 (5.0-8.0) Ur Specific [place] 1.011 (1.003-1.030) Urine Protein Negative (NEGATIVE) mg/dL Urine Glucose (UA) Normal (Normal) mg/dL Urine Ketones Negative (NEGATIVE) mg/dL Urine Blood Negative (NEGATIVE) Urine Nitrate Negative (NEGATIVE) Urine Bilirubin Negative (NEGATIVE) Urine Urobilinogen Normal (0.2-1.0) mg/dL Ur Leukocyte Esterase 2+ H (Negative) Eliza/uL Urine WBC (Auto) 700 H (0-5) /hpf Urine RBC (Auto) 2 (0-3) /hpf Urine WBC Clumps (Auto) Many H (NONE) /hpf Ur Squamous Epith Cells 3 (0-5) /hpf Urine Bacteria Occ H (<OCC) 05/01/17 Range/Units 06:20 WBC 20.3 H D (4.8-10.8) K/uL RBC 2.72 L (3.80-5.20) Mil/uL Hgb 7.6 L (11.0-16.0) g/dL Hct 22.0 L (34.0-47.0) % MCV 81.0 D (81.0-99.0) fL MCH 28.0 (27.0-31.0) pg MCHC 34.6 (33.0-37.0) g/dL RDW 17.2 H (11.5-14.5) % Plt Count 211 (130-400) K/uL MPV 9.6 (7.2-11.7) fL Neut % (Auto) 87.2 H (50.0-75.0) % Lymph % (Auto) 7.2 L (20.0-40.0) % [place] % (Auto) 5.5 (0.0-10.0) % Eos % (Auto) 0.0 (0.0-4.0) % Baso % (Auto) 0.1 (0.0-2.0) % Neut # 17.7 H (1.8-7.0) K/uL Lymph # 1.5 (1.0-4.3) K/uL [place] # 1.1 H (0.0-0.8) K/uL Eos # 0.0 (0.0-0.7) K/uL Baso # 0.0 (0.0-0.2) K/uL Neutrophils % (Manual) 90 H (50-75) % Band Neutrophils % 3 H (0-2) % Lymphocytes % (Manual) 3 L (20-40) % Monocytes % (Manual) 4 (0-10) % Platelet Estimate Normal (NORMAL) Large Platelets Present Giant Platelets Present Hypochromasia (manual) Moderate Poikilocytosis (manual Slight Anisocytosis (manual) Slight Sodium (132-148) mmol/L Potassium (3.6-5.2) mmol/L Chloride (98-107) mmol/L Carbon Dioxide (22-30) mmol/L Anion Gap (10-20) BUN (7-17) mg/dL Creatinine (0.7-1.2) MG/DL Est GFR ( Amer) Est GFR (Non-Af Amer) Random Glucose (65-105) mg/dL Calcium (8.6-10.4) mg/dl Phosphorus (2.5-4.5) mg/dL Magnesium (1.6-2.3) mg/dL Total Bilirubin (0.2-1.3) mg/dL AST (14-36) U/L ALT (9-52) U/L Alkaline Phosphatase (38-126) U/L Total Protein (6.3-8.3) g/dL Albumin (3.5-5.0) g/dL Globulin (2.2-3.9) gm/dL Albumin/Globulin Ratio (1.0-2.1) Urine Color (YELLOW) Urine Clarity (Clear) Urine pH (5.0-8.0) Ur Specific [place] (1.003-1.030) Urine Protein (NEGATIVE) mg/dL Urine Glucose (UA) (Normal) mg/dL Urine Ketones (NEGATIVE) mg/dL Urine Blood (NEGATIVE) Urine Nitrate (NEGATIVE) Urine Bilirubin (NEGATIVE) Urine Urobilinogen (0.2-1.0) mg/dL Ur Leukocyte Esterase (Negative) Eliza/uL Urine WBC (Auto) (0-5) /hpf Urine RBC (Auto) (0-3) /hpf Urine WBC Clumps (Auto) (NONE) /hpf Ur Squamous Epith Cells (0-5) /hpf Urine Bacteria (<OCC) Laboratory Results - last 24 hr 05/01/17 05/01/17 05/01/17 06:20 06:20 07:21 WBC 20.3 H D 21.0 H RBC 2.72 L 2.80 L Hgb 7.6 L 7.8 L Hct 22.0 L 22.7 L MCV 81.0 D 80.9 L MCH 28.0 28.0 MCHC 34.6 34.6 RDW 17.2 H 17.0 H Plt Count 211 208 MPV 9.6 8.9 Neut % (Auto) 87.2 H Lymph % (Auto) 7.2 L [place] % (Auto) 5.5 Eos % (Auto) 0.0 Baso % (Auto) 0.1 Neut # 17.7 H Lymph # 1.5 [place] # 1.1 H Eos # 0.0 Baso # 0.0 Neutrophils % (Manual) 90 H Band Neutrophils % 3 H Lymphocytes % (Manual) 3 L Monocytes % (Manual) 4 Platelet Estimate Normal Large Platelets Present Giant Platelets Present Hypochromasia (manual) Moderate Poikilocytosis (manual Slight Anisocytosis (manual) Slight Sodium 127 L Potassium 5.8 H Chloride 99 Carbon Dioxide 19 L Anion Gap 15 BUN 20 H Creatinine 1.1 Est GFR ( Amer) > 60 Est GFR (Non-Af Amer) 53 Random Glucose 150 H Calcium 8.4 L Phosphorus 2.9 Magnesium 2.7 H Total Bilirubin 1.0 AST 67 H D ALT 59 H D Alkaline Phosphatase 173 H Total Protein 7.2 Albumin 4.2 Globulin 3.1 Albumin/Globulin Ratio 1.4 Urine Color Urine Clarity Urine pH Ur Specific [place] Urine Protein Urine Glucose (UA) Urine Ketones Urine Blood Urine Nitrate Urine Bilirubin Urine Urobilinogen Ur Leukocyte Esterase Urine WBC (Auto) Urine RBC (Auto) Urine WBC Clumps (Auto) Ur Squamous Epith Cells Urine Bacteria 05/01/17 10:21 WBC RBC Hgb Hct MCV MCH MCHC RDW Plt Count MPV Neut % (Auto) Lymph % (Auto) [place] % (Auto) Eos % (Auto) Baso % (Auto) Neut # Lymph # [place] # Eos # Baso # Neutrophils % (Manual) Band Neutrophils % Lymphocytes % (Manual) Monocytes % (Manual) Platelet Estimate Large Platelets Giant Platelets Hypochromasia (manual) Poikilocytosis (manual Anisocytosis (manual) Sodium Potassium Chloride Carbon Dioxide Anion Gap BUN Creatinine Est GFR ( Amer) Est GFR (Non-Af Amer) Random Glucose Calcium Phosphorus Magnesium Total Bilirubin AST ALT Alkaline Phosphatase Total Protein Albumin Globulin Albumin/Globulin Ratio Urine Color Yellow Urine Clarity Hazy Urine pH 6.0 Ur Specific [place] 1.011 Urine Protein Negative Urine Glucose (UA) Normal Urine Ketones Negative Urine Blood Negative Urine Nitrate Negative Urine Bilirubin Negative Urine Urobilinogen Normal Ur Leukocyte Esterase 2+ H Urine WBC (Auto) 700 H Urine RBC (Auto) 2 Urine WBC Clumps (Auto) Many H Ur Squamous Epith Cells 3 Urine Bacteria Occ H Review of Systems - Constitutional Constitutional: absent: Fever, Chills - EENT Eyes: absent: Blind Spots, Blurred Vision, Change in Vision Ears: absent: Ear Pain, Tinnitus Nose/Mouth/Throat: absent: Nose Pain, Facial Pain, Neck Pain - Cardiovascular Cardiovascular: absent: Chest Pain, Orthopnea, Palpitations, Syncope - Respiratory Respiratory: absent: Cough, Dyspnea, Dyspnea on Exertion - Gastrointestinal Gastrointestinal: absent: Abdominal Pain, Change in Bowel Habits, Constipation, Diarrhea, Nausea, Vomiting - Genitourinary Genitourinary: absent: Change in Urinary Stream, Difficulty Urinating - Musculoskeletal Musculoskeletal: absent: Abnormal Gait, Arthralgias, Stiffness, Tingling - Integumentary Integumentary: absent: Lesions, Rash, Wounds - Neurological Neurological: absent: Memory Loss, Sensory Deficit, Syncope, Tingling, Tremor, Vertigo, Weakness - Endocrine Endocrine: absent: Cold Intolorance, Heat Intolorance - Hematologic/Lymphatic Hematologic: Easy Bleeding, Easy Bruising Assessment/Plan (1) Gingival bleeding Current Visit: Yes Status: Acute (2) Von Willebrand disease, type I Current Visit: Yes Status: Chronic Comment: Patient transfused 2U PRBC and received Desmopressin 0.3mcg/kg Heme-onc Recs appretiated (3) Anemia Current Visit: No Status: Acute (4) UTI (urinary tract infection) Current Visit: No Status: Acute (5) Hyponatremia Current Visit: Yes Status: Acute Comment: From Desmopressin injection Fluid restriction Salt tabblets (6) Iron deficiency anemia Current Visit: Yes Status: Acute - Assessment and Plan (Free Text) Plan: Neuro: -A&OX3 -No acute issues -Imaging: CT head (04/27/17): unremarkable; no acute intracranial pathology identified Cardiovascular: -murmur noted on physical exam -f/u ECHO 04/27/17 pending official read -hypotensive at 99/45 dopamine drip remains off since 04/30/17 -LE venous duplex scan (b/l lower leg pain): (04/29/17): unremarkable -EKG 04/30/17: Normal sinus rhythm with nonspecific ST and T wave abnormality; prolonged QT Pulmonary: -O2 Sat 97% RA -Imaging: -CXR (04/27/17): mild venous congestion Gastrointestinal: -Dr. Ramírez on board -Last BM yesterday -Imaging: -EGD (04/27/17): evidence of gastritis; otherwise unremarkable. No specimens collected -f/u Abd/Pelvis CT for possible evidence of adrenal bleed -Protonix 40mg PO daily -Full liquid and advance as tolerated Hematology: -Admit 04/27/17 for acute hematemesis likely 2/2 recurrent gingival bleeding from recent diagnosis of Von Willebrand disease -patient transfused 2U PRBC -Given DDAVP on 04/28/17 resulting hyponatremia -Given 2U cryoprecipitate for recurrent gingival bleeding stopped bleeding -Dr. Ley on board for heme-onc -transfused 2U PRBC during hospitalization -Iron deficiency anemia -Hgb 7.3 > 9.5 > 10 > 8 > 9.5 > 7.8 -continue to monitor CBC/CMP/coags Endocrine: -hypothyroidism continue Synthroid 125 mg PO daily -Hyponatremia secondary to DDAVP -115 > 120 > 127 -continue to monitor CBC/CMP routinely -no focal neurological deficits -f/u Abd/Pelvis CT for possible adrenal bleed Renal: -MARCUS -05/01/17: BUN/Cr increased from 10 / 0.7 to 20 / 1.1 -GFR 53 Musculoskeletal: -no acute events Genitourinary: -UTI- asymptomatic -UA 05/01/17: hazy with 2+ leukocyte esterase and 700 urine WBC, no nitrates Infectious disease: -leukocytosis likely 2/2 to UTI + side effect of decadron -WBC 21 on 05/01/17 -UA ordered hazy with 2+ leukocyte esterase and 700 urine WBC -Cultures pending GI prophylaxis: Protonix 40mg PO daily DVT prophylaxis: contraindicated due to acute blood loss Case discussed with Dr. Eric Riley PGY1 - Date & Time Date: 05/01/17 Time: 15:01
--- NOTE | 2017-05-01 14:45 | CP.PCM.PN ---
Subjective - Date & Time of Evaluation Date of Evaluation: 05/01/17 Time of Evaluation: 14:40 - Subjective Subjective: Medical Attending Note Follow-up: Leukocytosis, Von Willenbrand Type 1, Anemia, Pyuria Patient seen and examined at bedside. Patient denies fever, denies chills, denies shortness of breathe, denies abdominal pain, denies nausea, denies vomitting, reports vaginal itchiness, and denies further episodes of bleeding. Objective - Vital Signs/Intake and Output Vital Signs (last 24 hours): Temp Pulse Resp BP Pulse Ox 97.7 F 85 18 112/62 99 05/01/17 12:00 05/01/17 13:00 05/01/17 13:00 05/01/17 13:00 05/01/17 13:00 Intake and Output: 05/01/17 05/01/17 06:59 18:59 Intake Total 431.3 1040 Output Total 1100 Balance -668.7 1040 - Medications Medications: Current Medications Docusate Sodium (Colace) 100 mg PO BID [facility] Last Admin: 05/01/17 09:34 Dose: 100 mg Dopamine HCl/Dextrose (Dopamine 400mg/250ml D5w) 400 mg in 250 mls @ 4.423 mls/ hr IV .Q24H PRN; Protocol; 2 MCG/KG/MIN PRN Reason: TITRATE PER MD ORDER Last Titration: 04/30/17 21:10 Dose: 0 mcg/kg/min, 0 mls/hr Levothyroxine Sodium (Synthroid) 125 mcg PO DAILY@0630 [facility] Last Admin: 05/01/17 06:00 Dose: 125 mcg Pantoprazole Sodium (Protonix Ec Tab) 40 mg PO DAILY [facility] Last Admin: 05/01/17 09:34 Dose: 40 mg - Labs Labs: 05/01/17 07:21 05/01/17 06:20 PT 14.5 SECONDS (9.7-12.2) H 04/30/17 00:13 INR 1.3 04/30/17 00:13 APTT 54 SECONDS (21-34) H D 04/30/17 00:13 - Constitutional Appears: Non-toxic, No Acute Distress - Head Exam Head Exam: NORMAL INSPECTION - Eye Exam Eye Exam: EOMI - ENT Exam ENT Exam: Mucous Membranes Moist - Respiratory Exam Respiratory Exam: Clear to Ausculation Bilateral, NORMAL BREATHING PATTERN. absent: Rales, Rhonchi, Wheezes - Cardiovascular Exam Cardiovascular Exam: RRR, +S1, +S2 - GI/Abdominal Exam GI & Abdominal Exam: Soft, Normal Bowel Sounds. absent: Distended, Firm, Guarding, Rigid, Tenderness, Rebound - Extremities Exam Extremities Exam: absent: Pedal Edema, Tenderness - Neurological Exam Neurological Exam: Alert, Awake, Oriented x3 - Psychiatric Exam Psychiatric exam: Normal Affect, Normal Mood - Skin Skin Exam: Dry, Intact, Normal Color, Warm. absent: Petechiae Assessment and Plan (1) Anemia associated with acute blood loss Status: Acute (2) Gingival bleeding Status: Acute (3) Hyponatremia Status: Acute (4) Von Willebrand disease, type I Status: Chronic (5) Constipation Status: Acute (6) Hypotension Status: Acute (7) Prophylactic measure Status: Acute - Assessment and Plan (Free Text) Assessment: Assessment/Plan 1) Leukocytosis * Blood cultures X2 * UA and Urine culture * UA: pyuria * D/C [place] * will start Lotrim for vaginal pruritus * Possible due to Decadron? 2) Von Willebrands Dz, Type 1 * Heme-onc (Dr. Nadiya Ley) on board * patient transfused 2U PRBC-->no adverse reactions noted during hospitalizatoin * Desmopressin received on 04/28/17 resulting hyponatreamia * Head CT (04/27/17): no acute intracranial pathology identifed * Overnight, patient received cryoprecitate for recurrent gingival bleeding, and transferred to the ICU; patient received Decadron overnight * No further episodes of bleeding noted 3) Iron deficiency Anemia * Heme-onc (Dr. Nadiya Ley) on board * patient transfused 2U PRBC during hospitalization * off Ferrlecit 125mg IVPB daily * Hemoglobin 7.3-->9.5-->10-->8-->9.5-->7.8 * Completed CT abdomen/Pelvis awaiting result 4) Hematemesis * GI (Dr. Ramírez) on board * EGD (04/27/17): Z-line regular, normal esophagus, gastritis, normal examined duodenum, no specimens collected * Protonix 40mg PO daily * Full liquid and advanced as tolerated 5) Hypothyroidism * c/w home Synthroid 125mg PO Daily 6) Murmur * f/u ECHO-->pending official read 7) Hyponatremia * no focal neurologic deficits * likely secondary to recent desmopression * Improved; 127 * Off IV fluids 8) Constipation * Resolved * Had bowel movement yesterday 9) Hypotension * Off pressor * Vital signs stable 10) Prophylaxis * Protonix 40mg PO daily for GI ppx * Contraindications to VTE secondary to suspected GI bleed and VWK
--- NOTE | 2017-05-01 14:48 | CT ---
PROCEDURE: CT Abdomen and Pelvis without intravenous contrast HISTORY: eval for adrenal bleed COMPARISON: None. TECHNIQUE: Without contrast.. Contrast Dose: 0 Radiation dose: Total exam DLP = 595.10 mGy-cm. This CT exam was performed using one or more of the following dose reduction techniques: Automated exposure control, adjustment of the mA and/or kV according to patient size, and/or use of iterative reconstruction technique. FINDINGS: LOWER THORAX: Nonspecific mosaic attenuation in the visualized portions of both lower lobes. LIVER: Unremarkable. No gross lesion or ductal dilatation. GALLBLADDER AND BILE DUCTS: Unremarkable. PANCREAS: Unremarkable. No gross lesion or ductal dilatation. SPLEEN: Unremarkable. ADRENALS: Unremarkable. No mass. No evidence of adrenal hemorrhage. KIDNEYS AND URETERS: Unremarkable. No hydronephrosis. No solid mass. No renal calculus. VASCULATURE: Unremarkable. No aortic aneurysm. BOWEL: Unremarkable. No obstruction. No gross mural thickening. APPENDIX: Not identified. Surgical clips adjacent to cecal apex may reflect prior appendectomy. PERITONEUM: Unremarkable. No free fluid. No free air. LYMPH NODES: Unremarkable. No enlarged lymph nodes. BLADDER: Decompressed around David catheter balloon. REPRODUCTIVE: Normal uterus. BONES: No acute fracture. OTHER FINDINGS: None. IMPRESSION: No evidence of adrenal mass/ hemorrhage. Incidental mosaic attenuation in both lower lobes, nonspecific. David catheter noted. Possible prior appendectomy. Otherwise unremarkable examination.
[2017-05-01] MEDS: Clotrimazole 1% Cream(30 gm) TOP SCH (18:03)
[2017-05-02 06:41] LABS: BASO % 0.4 % (0.0-2.0); EOS # 0.1 K/uL (0.0-0.7); EOS % 0.5 % (0.0-4.0); HEMATOCRIT 22.5 % (34.0-47.0); LYMPH # 2.6 K/uL (1.0-4.3); LYMPH % 18.7 % (20.0-40.0); MEAN CELL VOLUME 82.5 fL (81.0-99.0); MEAN CORPUSCULAR HEMOGLOBIN 28.5 pg (27.0-31.0); MEAN CORPUSCULAR HGB CONC 34.6 g/dL (33.0-37.0); MEAN PLATELET VOLUME 9.1 fL (7.2-11.7); MONO # 0.6 K/uL (0.0-0.8); MONO % 4.7 % (0.0-10.0); RED CELL DISTRIBUTION WIDTH 18.9 % (11.5-14.5); WHITE BLOOD COUNT 13.6 K/uL (4.8-10.8)
[2017-05-02] MEDS: Levothyroxine 125 MCG TAB PO SCH (06:46)
[2017-05-02 07:03] LABS: CHLORIDE 102 mmol/L (98-107)
[2017-05-02 07:04] LABS: POTASSIUM 4.5 mmol/L (3.6-5.2); SODIUM 134 mmol/L (132-148)
[2017-05-02 07:06] LABS: AST/SGOT 70 U/L (14-36); BILIRUBIN,TOTAL 0.7 mg/dL (0.2-1.3); CARBON DIOXIDE 21 mmol/L (22-30); GFR AFRICAN-AMERICAN > 60
[2017-05-02 07:07] LABS: ALB/GLOB RATIO 1.3 (1.0-2.1); ALKALINE PHOSPHATASE 179 U/L (38-126); ALT/SGPT 56 U/L (9-52); BLOOD UREA NITROGEN 17 mg/dL (7-17); CALCIUM 8.8 mg/dl (8.6-10.4); GLUCOSE,RANDOM 118 mg/dL (65-105); MAGNESIUM 2.8 mg/dL (1.6-2.3); PHOSPHOROUS 3.3 mg/dL (2.5-4.5); TOTAL PROTEIN 7.4 g/dL (6.3-8.3)
[2017-05-02] MEDS: Pantoprazole 40 mg EC Tab PO SCH (09:06)
[2017-05-02] MEDS: Clotrimazole 1% Cream(30 gm) TOP SCH ×2 (09:07→19:03)
--- NOTE | 2017-05-02 16:03 | CP.PCM.DIS ---
<Munira Montano - Last Filed: 05/02/17 16:15> Provider - Provider Date of Admission: 04/29/17 17:21 Attending physician: Darrel Goldman MD Primary care physician: none, will follow up in [facility] Consults: Jaylen Ley - hematology/oncology Time Spent in preparation of Discharge (in minutes): 35 Diagnosis - Discharge Diagnosis (1) Von Willebrand disease, type I Status: Chronic Comment: with associated bleeding from gums and anemia. f/u Dr. Lye and primary care doctor. Desmopressin spray as needed (2) UTI (urinary tract infection) Status: Acute Comment: f/u UA and culture. Cipro 500 mg PO x 5 days Hospital Course - Lab Results Lab Results: Micro Results 05/01/17 08:30 Urine Urine Culture - Final > 100,000 CFU/ML. MULTIPLE SPECIES. SUGGEST REPEAT SPECIMEM. 04/30/17 Unknown Nose MRSA Culture (Admit) - Final MRSA NOT DETECTED Most Recent Lab Values WBC 13.6 K/uL (4.8-10.8) H 05/02/17 06:25 RBC 2.73 Mil/uL (3.80-5.20) L 05/02/17 06:25 Hgb 7.8 g/dL (11.0-16.0) L 05/02/17 06:25 Hct 22.5 % (34.0-47.0) L 05/02/17 06:25 MCV 82.5 fL (81.0-99.0) 05/02/17 06:25 MCH 28.5 pg (27.0-31.0) 05/02/17 06:25 MCHC 34.6 g/dL (33.0-37.0) 05/02/17 06:25 RDW 18.9 % (11.5-14.5) H 05/02/17 06:25 Plt Count 225 K/uL (130-400) 05/02/17 06:25 MPV 9.1 fL (7.2-11.7) 05/02/17 06:25 Neut % (Auto) 75.7 % (50.0-75.0) H 05/02/17 06:25 Lymph % (Auto) 18.7 % (20.0-40.0) L 05/02/17 06:25 [place] % (Auto) 4.7 % (0.0-10.0) 05/02/17 06:25 Eos % (Auto) 0.5 % (0.0-4.0) 05/02/17 06:25 Baso % (Auto) 0.4 % (0.0-2.0) 05/02/17 06:25 Neut # 10.3 K/uL (1.8-7.0) H 05/02/17 06:25 Lymph # 2.6 K/uL (1.0-4.3) 05/02/17 06:25 Scre[place] # 0.6 K/uL (0.0-0.8) 05/02/17 06:25 Eos # 0.1 K/uL (0.0-0.7) 05/02/17 06:25 Baso # 0.0 K/uL (0.0-0.2) 05/02/17 06:25 Neutrophils % (Manual) 90 % (50-75) H 05/01/17 06:20 Band Neutrophils % 3 % (0-2) H 05/01/17 06:20 Lymphocytes % (Manual) 3 % (20-40) L 05/01/17 06:20 Monocytes % (Manual) 4 % (0-10) 05/01/17 06:20 Metamyelocytes % 1 % (0-0) H 04/30/17 05:49 Platelet Estimate Normal (NORMAL) 05/01/17 06:20 Large Platelets Present 05/01/17 06:20 Giant Platelets Present 05/01/17 06:20 Polychromasia Slight 04/30/17 05:49 Hypochromasia (manual) Moderate 05/01/17 06:20 Poikilocytosis (manual Slight 05/01/17 06:20 Anisocytosis (manual) Slight 05/01/17 06:20 Microcytosis (manual) Slight 04/30/17 05:49 Ovalocytes Slight 04/30/17 05:49 Schistocytes Slight 04/30/17 05:49 PT 11.8 SECONDS (9.7-12.2) 05/02/17 06:28 INR 1.0 05/02/17 06:28 APTT 35 SECONDS (21-34) H D 05/02/17 06:28 pO2 27 mm/Hg (30-55) L 04/30/17 01:37 VBG pH 7.30 (7.32-7.43) L 04/30/17 01:37 VBG pCO2 40 mmHg (40-60) 04/30/17 01:37 VBG HCO3 18.5 mmol/L 04/30/17 01:37 VBG Total CO2 20.9 mmol/L (22-28) L 04/30/17 01:37 VBG O2 Sat (Calc) 56.1 % (40-65) 04/30/17 01:37 VBG Base Excess -6.3 mmol/L (0.0-2.0) L 04/30/17 01:37 VBG Potassium 5.3 mmol/L (3.6-5.2) H 04/30/17 01:37 Sodium 123.0 mmol/l (132-148) L 04/30/17 01:37 Chloride 96.0 mmol/L (98-107) L 04/30/17 01:37 Glucose 159 mg/dl (65-105) H 04/30/17 01:37 Lactate 1.8 mmol/L (0.7-2.1) 04/30/17 01:37 Crit Value Called To Brisa torres rn 04/30/17 01:37 Crit Value Called By Krystyna henderson rt 04/30/17 01:37 Crit Value Read Back Y 04/30/17 01:37 Blood Gas Notified Time 545 04/30/17 01:37 Sodium 134 mmol/L (132-148) 05/02/17 06:26 Potassium 4.5 mmol/L (3.6-5.2) 05/02/17 06:26 Chloride 102 mmol/L (98-107) 05/02/17 06:26 Carbon Dioxide 21 mmol/L (22-30) L 05/02/17 06:26 Anion Gap 16 (10-20) 05/02/17 06:26 BUN 17 mg/dL (7-17) 05/02/17 06:26 Creatinine 1.0 MG/DL (0.7-1.2) 05/02/17 06:26 Est GFR ( Amer) > 60 05/02/17 06:26 Est GFR (Non-Af Amer) 59 05/02/17 06:26 Random Glucose 118 mg/dL (65-105) H 05/02/17 06:26 Uric Acid 3.1 mg/dL (2.2-7.5) 04/30/17 00:13 Calcium 8.8 mg/dl (8.6-10.4) 05/02/17 06:26 Phosphorus 3.3 mg/dL (2.5-4.5) 05/02/17 06:26 Magnesium 2.8 mg/dL (1.6-2.3) H 05/02/17 06:26 Total Bilirubin 0.7 mg/dL (0.2-1.3) 05/02/17 06:26 AST 70 U/L (14-36) H 05/02/17 06:26 ALT 56 U/L (9-52) H 05/02/17 06:26 Alkaline Phosphatase 179 U/L (38-126) H 05/02/17 06:26 Total Protein 7.4 g/dL (6.3-8.3) 05/02/17 06:26 Albumin 4.2 g/dL (3.5-5.0) 05/02/17 06:26 Globulin 3.1 gm/dL (2.2-3.9) 05/02/17 06:26 Albumin/Globulin Ratio 1.3 (1.0-2.1) 05/02/17 06:26 Procalcitonin 0.09 NG/ML (0.19-0.49) L 05/01/17 16:58 TSH 3rd Generation 2.01 mIU/L (0.46-4.68) 04/27/17 13:44 Venous Blood Potassium 5.3 mmol/L (3.6-5.2) H 04/30/17 01:37 Urine Color Yellow (YELLOW) 05/01/17 10:21 Urine Clarity Hazy (Clear) 05/01/17 10:21 Urine pH 6.0 (5.0-8.0) 05/01/17 10:21 Ur Specific [place] 1.011 (1.003-1.030) 05/01/17 10:21 Urine Protein Negative mg/dL (NEGATIVE) 05/01/17 10:21 Urine Glucose (UA) Normal mg/dL (Normal) 05/01/17 10:21 Urine Ketones Negative mg/dL (NEGATIVE) 05/01/17 10:21 Urine Blood Negative (NEGATIVE) 05/01/17 10:21 Urine Nitrate Negative (NEGATIVE) 05/01/17 10:21 Urine Bilirubin Negative (NEGATIVE) 05/01/17 10:21 Urine Urobilinogen Normal mg/dL (0.2-1.0) 05/01/17 10:21 Ur Leukocyte Esterase 2+ Eliza/uL (Negative) H 05/01/17 10:21 Urine WBC (Auto) 700 /hpf (0-5) H 05/01/17 10:21 Urine RBC (Auto) 2 /hpf (0-3) 05/01/17 10:21 Urine WBC Clumps (Auto) Many /hpf (NONE) H 05/01/17 10:21 Ur Squamous Epith Cells 3 /hpf (0-5) 05/01/17 10:21 Urine Bacteria Occ (<OCC) H 05/01/17 10:21 Urine Osmolality 372 mosm/kg (300-1000) 04/30/17 01:33 Ur Random Creatinine 58.6 mg/dL 04/30/17 01:33 Ur Random Sodium 81 mmol/L 04/30/17 01:33 Urine HCG, Qual Negative (NEGATIVE) 04/27/17 11:14 Blood Type O POSITIVE 04/30/17 01:05 Antibody Screen Negative 04/30/17 01:05 - Hospital Course Hospital Course: PMHx: Von Willebrand (with associated anemia), Hypothyroid PSHx: Appendectomy (approximately 2009) Allergies: NKDA Medications: Synthroid 125mcg, Ferrous Sulfate Family Hx:Mother- HTN, Father- DM, Brother-frequent nose bleeds Social Hx: Lives with , no tobacco, no EtOH, no illicit drugs On admission: Patient is a 46 year old female, with PMHx of Type 1 VWD , iron deficiency anemia, and hypothyroidism, who presents to ED for evaluation of gingival bleeding. Patient states bleeding started spontaneously around midnight, and has lasted for more than an hour. Pt was given fluids, and one unit of desmopressin, and ceased bleeding, was hemodynamically stable, and discharged. Pt got to parking lot, when she felt lightheaded, and had one episode of hematemesis. She admits nausea and feeling light-headed, but denies epistaxis, hemotchezia, vision changes, extremity numbness/weakness, chest pain , shortness of breath, palpitations, abdominal pain. Pt was seen at [facility] on 04/25 for similar symptoms, and was given 1 unit of PRBCs and one unit of DDAVP. Hgb was 8. Patient diagnosed with Type [address] Ley. Patient has had other episodes of bleeding in the past, with the first being in 2013. She notes multiple prior transfusions. During Hospital Stay: Dr. Nadiya Ley heme/onc was consulted for Von Willebrands Dx with active bleeding from the gums. She was transfused multiple units of blood. She was given desmopressin. She also had and EGD performed by Dr. Ramírez which showed no GI bleed. Patient also received 2 U of cryoprecitate and the bleeding stopped. Patient had leukocytosis. Blood cultures were negative. Patient was anemia from blood loss. She was given Ferrlecit 125mg IVPB. CT abd/pelvis was negative for other source of bleed. After receiving desmopression the patient became hyopnatremic. Sodium was corrected and is now within normal limits. No focal deficits were observed. Patient had an episode of hypotension where she was sarted on dopamine drip and sent to the ICU. Her BP has now normalized. At that time she had a paris placed to monitor urine output. The paris was removed in 2 days. The patient was complaining of increase urinary frequency but denied dysuria. She aa started on Ceftriaxone. Urine culture and sensitivity was sent. Patient was continued on her home dose of Synthroid 125 mcg for hyopthroyid. She complained of some vaginal pruritus and was given Lotrim cream. Patient is stable for discharge home. Patient is to follow up with her primary care doctor and Dr. Ley (hematology/oncology) within 1-2 of discharge for post hospital care. If she does not have a primary care doctor she can follow up in the [facility]. She was given a card with the clinic information. She is to call and make appointments. Patient is to take the following medications: Synthroid 125mcg one by mouth daily Cipro 500mg one by mouth twice a day for 5 days Ferrous Sulfate 325mg once by mouth twice a day Desmopressin 1 spray into each nostril if bleeding occurs The patient will need to see Dr. Ley and get clearance prior to seeing a dentist. Patient is to return to the emergency room if symptoms return or she continues to bleed from the gums. All instructions explained to the patient and she agrees. On follow up in the clinic patient will need referral to see Dr. Nadiya Ley. Please follow up with urine culture to make sure UTI was sensitive to Cipro which she was discharged on. (Her pharmacy is [facility] pharmacy [address] [place] *This is a summary of the hospital stay. Please refer to EMR for full hospitalization details. Discharge Exam - Head Exam Head Exam: NORMAL INSPECTION - Eye Exam Eye Exam: EOMI, Normal appearance, PERRL Pupil Exam: NORMAL ACCOMODATION - ENT Exam ENT Exam: Mucous Membranes Moist Additional comments: no evidence of active bleeding - Respiratory Exam Respiratory Exam: NORMAL BREATHING PATTERN. absent: Accessory Muscle Use, Respiratory Distress - Cardiovascular Exam Cardiovascular Exam: REGULAR RHYTHM, +S1, +S2 - GI/Abdominal Exam GI & Abdominal Exam: Normal Bowel Sounds, Soft. absent: Distended, Firm, Guarding, Tenderness - Extremities Exam Extremities exam: normal inspection - Back Exam Back exam: NORMAL INSPECTION - Neurological Exam Neurological exam: Alert, Normal Gait, Oriented x3 - Psychiatric Exam Psychiatric exam: Normal Affect, Normal Mood - Skin Skin Exam: Dry, Intact, Normal Color, Warm Discharge Plan - Discharge Medications Prescriptions: Ciprofloxacin HCl [Cipro] 500 mg PO BID #10 tablet Desmopressin (Nonrefrigerated) [Desmopressin 10 Mcg/0.1 ml Spr] 1.5 mcg NS DAILY PRN #1 spray.pump PRN Reason: Other Ferrous Sulfate 325 mg PO BID #60 tablet Levothyroxine [Synthroid] 125 mcg PO DAILY #30 Omeprazole 40 mg PO DAILY #30 capsule.dr - Follow Up Plan Condition: FAIR Disposition: HOME/ ROUTINE Additional Instructions: Patient is stable for discharge home. Patient is to follow up with her primary care doctor and Dr. Ley (hematology/oncology) within 1-2 of discharge for post hospital care. If she does not have a primary care doctor she can follow up in the [facility]. She was given a card with the clinic information. She is to call and make appointments. Patient is to take the following medications: Synthroid 125mcg one by mouth daily Cipro 500mg one by mouth twice a day for 5 days Ferrous Sulfate 325mg once by mouth twice a day Desmopressin 1 spray into each nostril if bleeding occurs The patient will need to see Dr. Ley and get clearance prior to seeing a dentist. Patient is to return to the emergency room if symptoms return or she continues to bleed from the gums. All instructions explained to the patient and she agrees. El paciente es estable para el desirae hospitalaria. El paciente debe realizar un seguimiento con felix mdico de atencin primaria y el doctor Av (hematologa / oncologa) dentro de 1-2 de la desirae para atencin post-hospitalaria. Si no tiene un mdico de atencin primaria, puede hacer un seguimiento en el [facility] en el [facility]. Le dieron davin tarjeta con la informacin de la clnica. Madelyn debe llamar y hacer citas. El paciente debe coco los siguientes medicamentos: Synthroid 125mcg jacek por va oral todos los dolan Cipro 500mg jacek por va oral dos veces al da anthony 5 dolan Sulfato ferroso 325 mg davin vez por va oral dos veces al da Desmopresina 1 pulverizacin en cada fosa nasal si se produce sangrado El paciente tendr que emma al Dr. Ley y obtener autorizacin antes de emma a un dentista. El paciente debe regresar a la margareth de emergencias si los sntomas regresan o contina sangrando de las encas. Todas las instrucciones se explican a la paciente y madelyn est de acuerdo. Referrals: [facility] [Outside] Arturo Ley MD [Staff Provider] - <Tangela Andrade V - Last Filed: 05/02/17 18:41> Provider - Provider Date of Admission: 04/29/17 17:21 Attending physician: Darrel Goldman MD Diagnosis - Discharge Diagnosis (1) Anemia associated with acute blood loss Status: Acute (2) Gingival bleeding Status: Acute (3) Hyponatremia Status: Acute (4) Von Willebrand disease, type I Status: Chronic (5) Constipation Status: Acute (6) Hypotension Status: Acute (7) Prophylactic measure Status: Acute Hospital Course - Lab Results Lab Results: Micro Results 05/01/17 16:45 Blood Blood Culture - Preliminary NO GROWTH AFTER 24 HOURS 05/01/17 16:15 Blood Blood Culture - Preliminary NO GROWTH AFTER 24 HOURS 05/01/17 08:30 Urine Urine Culture - Final > 100,000 CFU/ML. MULTIPLE SPECIES. SUGGEST REPEAT SPECIMEM. 04/30/17 Unknown Nose MRSA Culture (Admit) - Final MRSA NOT DETECTED Most Recent Lab Values WBC 13.6 K/uL (4.8-10.8) H 05/02/17 06:25 RBC 2.73 Mil/uL (3.80-5.20) L 05/02/17 06:25 Hgb 9.1 g/dL (11.0-16.0) L 05/02/17 17:08 Hct 26.7 % (34.0-47.0) L 05/02/17 17:08 MCV 82.5 fL (81.0-99.0) 05/02/17 06:25 MCH 28.5 pg (27.0-31.0) 05/02/17 06:25 MCHC 34.6 g/dL (33.0-37.0) 05/02/17 06:25 RDW 18.9 % (11.5-14.5) H 05/02/17 06:25 Plt Count 225 K/uL (130-400) 05/02/17 06:25 MPV 9.1 fL (7.2-11.7) 05/02/17 06:25 Neut % (Auto) 75.7 % (50.0-75.0) H 05/02/17 06:25 Lymph % (Auto) 18.7 % (20.0-40.0) L 05/02/17 06:25 [place] % (Auto) 4.7 % (0.0-10.0) 05/02/17 06:25 Eos % (Auto) 0.5 % (0.0-4.0) 05/02/17 06:25 Baso % (Auto) 0.4 % (0.0-2.0) 05/02/17 06:25 Neut # 10.3 K/uL (1.8-7.0) H 05/02/17 06:25 Lymph # 2.6 K/uL (1.0-4.3) 05/02/17 06:25 [place] # 0.6 K/uL (0.0-0.8) 05/02/17 06:25 Eos # 0.1 K/uL (0.0-0.7) 05/02/17 06:25 Baso # 0.0 K/uL (0.0-0.2) 05/02/17 06:25 Neutrophils % (Manual) 90 % (50-75) H 05/01/17 06:20 Band Neutrophils % 3 % (0-2) H 05/01/17 06:20 Lymphocytes % (Manual) 3 % (20-40) L 05/01/17 06:20 Monocytes % (Manual) 4 % (0-10) 05/01/17 06:20 Metamyelocytes % 1 % (0-0) H 04/30/17 05:49 Platelet Estimate Normal (NORMAL) 05/01/17 06:20 Large Platelets Present 05/01/17 06:20 Giant Platelets Present 05/01/17 06:20 Polychromasia Slight 04/30/17 05:49 Hypochromasia (manual) Moderate 05/01/17 06:20 Poikilocytosis (manual Slight 05/01/17 06:20 Anisocytosis (manual) Slight 05/01/17 06:20 Microcytosis (manual) Slight 04/30/17 05:49 Ovalocytes Slight 04/30/17 05:49 Schistocytes Slight 04/30/17 05:49 PT 11.8 SECONDS (9.7-12.2) 05/02/17 06:28 INR 1.0 05/02/17 06:28 APTT 35 SECONDS (21-34) H D 05/02/17 06:28 pO2 27 mm/Hg (30-55) L 04/30/17 01:37 VBG pH 7.30 (7.32-7.43) L 04/30/17 01:37 VBG pCO2 40 mmHg (40-60) 04/30/17 01:37 VBG HCO3 18.5 mmol/L 04/30/17 01:37 VBG Total CO2 20.9 mmol/L (22-28) L 04/30/17 01:37 VBG O2 Sat (Calc) 56.1 % (40-65) 04/30/17 01:37 VBG Base Excess -6.3 mmol/L (0.0-2.0) L 04/30/17 01:37 VBG Potassium 5.3 mmol/L (3.6-5.2) H 04/30/17 01:37 Sodium 123.0 mmol/l (132-148) L 04/30/17 01:37 Chloride 96.0 mmol/L (98-107) L 04/30/17 01:37 Glucose 159 mg/dl (65-105) H 04/30/17 01:37 Lactate 1.8 mmol/L (0.7-2.1) 04/30/17 01:37 Crit Value Called To Brisa torres rn 04/30/17 01:37 Crit Value Called By Krystyna henderson rt 04/30/17 01:37 Crit Value Read Back Y 04/30/17 01:37 Blood Gas Notified Time 545 04/30/17 01:37 Sodium 134 mmol/L (132-148) 05/02/17 06:26 Potassium 4.5 mmol/L (3.6-5.2) 05/02/17 06:26 Chloride 102 mmol/L (98-107) 05/02/17 06:26 Carbon Dioxide 21 mmol/L (22-30) L 05/02/17 06:26 Anion Gap 16 (10-20) 05/02/17 06:26 BUN 17 mg/dL (7-17) 05/02/17 06:26 Creatinine 1.0 MG/DL (0.7-1.2) 05/02/17 06:26 Est GFR ( Amer) > 60 05/02/17 06:26 Est GFR (Non-Af Amer) 59 05/02/17 06:26 Random Glucose 118 mg/dL (65-105) H 05/02/17 06:26 Uric Acid 3.1 mg/dL (2.2-7.5) 04/30/17 00:13 Calcium 8.8 mg/dl (8.6-10.4) 05/02/17 06:26 Phosphorus 3.3 mg/dL (2.5-4.5) 05/02/17 06:26 Magnesium 2.8 mg/dL (1.6-2.3) H 05/02/17 06:26 Total Bilirubin 0.7 mg/dL (0.2-1.3) 05/02/17 06:26 AST 70 U/L (14-36) H 05/02/17 06:26 ALT 56 U/L (9-52) H 05/02/17 06:26 Alkaline Phosphatase 179 U/L (38-126) H 05/02/17 06:26 Total Protein 7.4 g/dL (6.3-8.3) 05/02/17 06:26 Albumin 4.2 g/dL (3.5-5.0) 05/02/17 06:26 Globulin 3.1 gm/dL (2.2-3.9) 05/02/17 06:26 Albumin/Globulin Ratio 1.3 (1.0-2.1) 05/02/17 06:26 Procalcitonin 0.09 NG/ML (0.19-0.49) L 05/01/17 16:58 TSH 3rd Generation 2.01 mIU/L (0.46-4.68) 04/27/17 13:44 Venous Blood Potassium 5.3 mmol/L (3.6-5.2) H 04/30/17 01:37 Urine Color Yellow (YELLOW) 05/01/17 10:21 Urine Clarity Hazy (Clear) 05/01/17 10:21 Urine pH 6.0 (5.0-8.0) 05/01/17 10:21 Ur Specific [place] 1.011 (1.003-1.030) 05/01/17 10:21 Urine Protein Negative mg/dL (NEGATIVE) 05/01/17 10:21 Urine Glucose (UA) Normal mg/dL (Normal) 05/01/17 10:21 Urine Ketones Negative mg/dL (NEGATIVE) 05/01/17 10:21 Urine Blood Negative (NEGATIVE) 05/01/17 10:21 Urine Nitrate Negative (NEGATIVE) 05/01/17 10:21 Urine Bilirubin Negative (NEGATIVE) 05/01/17 10:21 Urine Urobilinogen Normal mg/dL (0.2-1.0) 05/01/17 10:21 Ur Leukocyte Esterase 2+ Eliza/uL (Negative) H 05/01/17 10:21 Urine WBC (Auto) 700 /hpf (0-5) H 05/01/17 10:21 Urine RBC (Auto) 2 /hpf (0-3) 05/01/17 10:21 Urine WBC Clumps (Auto) Many /hpf (NONE) H 05/01/17 10:21 Ur Squamous Epith Cells 3 /hpf (0-5) 05/01/17 10:21 Urine Bacteria Occ (<OCC) H 05/01/17 10:21 Urine Osmolality 372 mosm/kg (300-1000) 04/30/17 01:33 Ur Random Creatinine 58.6 mg/dL 04/30/17 01:33 Ur Random Sodium 81 mmol/L 04/30/17 01:33 Urine HCG, Qual Negative (NEGATIVE) 04/27/17 11:14 Blood Type O POSITIVE 04/30/17 01:05 Antibody Screen Negative 04/30/17 01:05 Attending/Attestation - Attestation I have personally seen and examined this patient.: Yes I have fully participated in the care of the patient.: Yes I have reviewed all pertinent clinical information, including history, physical exam and plan: Yes Notes (Text): Patient seen, examined, and case discussed with day-time resident. Patient denies further episodes of bleeding. Patient transfused 1 unit PRBC to optimize her hemoglobin. Patient reports frequency, urine culture contaminated, and treat with Ciprofloxcin 400mg PO BID for 5 days, and repeat urine culture. Per heme-onc, patient is stable for discharge. Patient is stable for discharge home. Patient is to follow up with her primary care doctor and Dr. Ley (hematology/oncology) within 1-2 weeks of discharge for post hospital care. If she does not have a primary care doctor she can follow up in the [facility]. She was given a card with the clinic information and to follow-up for echocardiogram. She is to call and make appointments. Patient is to take the following medications: Synthroid 125mcg one by mouth daily Cipro 500mg one by mouth twice a day for 5 days Ferrous Sulfate 325mg once by mouth twice a day Desmopressin 1 spray into each nostril if bleeding occurs Omeprazole 40mg PO daily Lotrimin cream The patient will need to see Dr. Nadiya Ley and get clearance prior to any dental procedures. Patient is to return to the emergency room if symptoms return or she continues to bleed from the gums. All instructions explained to the patient and she agrees. On follow up in the clinic patient will need referral to see Dr. Nadiya Ley. Please follow up with urine culture to make sure UTI was sensitive to Cipro which she was discharged on. (Her pharmacy is [facility] pharmacy [address] [place] Assessment/Plan 1) Leukocytosis * Blood cultures X2: no growth for 24 hours * Urine culture: contaminated * UA: pyuria * D/C paris * will start Lotrim for vaginal pruritus * Improving 2) Von Willebrands Dz, Type 1 * Heme-onc (Dr. Nadiya Ley) on board * patient transfused 2U PRBC-->no adverse reactions noted during hospitalization * Desmopressin received on 04/28/17 resulting hyponatreamia * Head CT (04/27/17): no acute intracranial pathology identifed * On 04/30/17, patient received cryoprecitate for recurrent gingival bleeding, and transferred to the ICU; patient received Decadron overnight * No further episodes of bleeding noted since 3) Iron deficiency Anemia * Heme-onc (Dr. Nadiya Ley) on board * patient transfused 2U PRBC during hospitalization, and one prior 1 Unit PRBC * off Ferrlecit 125mg IVPB daily * Hemoglobin 7.3-->9.5-->10-->8-->9.5-->7.8-->7.8-->9.1 * CT abdomen/Pelvis (05/01/17): no evidence of adrenal mass/hemorrhage/ Incidental mosaic attenuation in both lower lobes, nonspecific, [place] cather noted. possible prior appendectomy. Otherwise unremarkable. 4) Hematemesis * GI (Dr. Ramírez) on board * EGD (04/27/17): Z-line regular, normal esophagus, gastritis, normal examined duodenum, no specimens collected * Protonix 40mg PO daily * Full liquid and advanced as tolerated 5) Hypothyroidism * c/w home Synthroid 125mg PO Daily 6) Murmur * f/u ECHO-->pending official read 7) Hyponatremia * no focal neurologic deficits * likely secondary to recent desmopression * Improved; 134 * Off IV fluids 8) Constipation * Resolved * Had bowel movement 9) Hypotension * Off pressor * Vital signs stable 10) Prophylaxis * Protonix 40mg PO daily for GI ppx-->discharged on Omeprazole 40mg PO daily for gastritis noted on EGD * Contraindications to VTE secondary to suspected GI bleed and VWK
[2017-05-02 17:21] LABS: HEMATOCRIT 26.7 % (34.0-47.0)
[2017-05-02 17:48] VITALS: BP 137/89; PULSE 94; RESP 20; TEMP 99.1; O2SAT 96
--- NOTE | 2017-05-02 18:09 | CP.PCM.PN ---
Subjective - Date & Time of Evaluation Date of Evaluation: 05/02/17 Time of Evaluation: 12:00 - Subjective Subjective: Feeling better, no bleeding. Objective - Vital Signs/Intake and Output Vital Signs (last 24 hours): Temp Pulse Resp BP Pulse Ox 99.1 F 94 H 20 137/89 96 05/02/17 16:00 05/02/17 16:00 05/02/17 16:00 05/02/17 16:00 05/02/17 16:00 Intake and Output: 05/02/17 05/02/17 06:59 18:59 Intake Total 0 1445 Output Total 300 Balance -300 1445 - Medications Medications: Current Medications Clotrimazole (Lotrimin 1%) 1 gm TOP BID [facility] Last Admin: 05/02/17 09:07 Dose: 1 applic Docusate Sodium (Colace) 100 mg PO BID [facility] Last Admin: 05/02/17 09:06 Dose: 100 mg Dopamine HCl/Dextrose (Dopamine 400mg/250ml D5w) 400 mg in 250 mls @ 4.423 mls/ hr IV .Q24H PRN; Protocol; 2 MCG/KG/MIN PRN Reason: TITRATE PER MD ORDER Last Titration: 04/30/17 21:10 Dose: 0 mcg/kg/min, 0 mls/hr Ceftriaxone Sodium 1 gm/ (Sodium Chloride) 100 mls @ 100 mls/hr IVPB DAILY [facility] Last Admin: 05/02/17 09:07 Dose: 100 mls/hr Levothyroxine Sodium (Synthroid) 125 mcg PO DAILY@0630 [facility] Last Admin: 05/02/17 06:46 Dose: 125 mcg Pantoprazole Sodium (Protonix Ec Tab) 40 mg PO DAILY [facility] Last Admin: 05/02/17 09:06 Dose: 40 mg - Labs Labs: 05/02/17 17:08 05/02/17 06:26 PT 11.8 SECONDS (9.7-12.2) 05/02/17 06:28 INR 1.0 05/02/17 06:28 APTT 35 SECONDS (21-34) H D 05/02/17 06:28 - Head Exam Head Exam: ATRAUMATIC - Eye Exam Eye Exam: Normal appearance - ENT Exam ENT Exam: Mucous Membranes Dry - Respiratory Exam Respiratory Exam: NORMAL BREATHING PATTERN - Cardiovascular Exam Cardiovascular Exam: +S1, +S2 - GI/Abdominal Exam GI & Abdominal Exam: Normal Bowel Sounds - Extremities Exam Extremities Exam: Normal Inspection Assessment and Plan (1) Von Willebrand disease, type I Assessment & Plan: DDAVP and cryopercipitate no further bleeding outpatient desmopressin Status: Chronic
[2017-05-02 21:55] LABS: RBC URINE 2 /hpf (0-3); TRANSITIONAL EPITHIAL < 1 /hpf (0-3); URINE BACTERIA RARE (<OCC); URINE BILIRUBIN NEGATIVE (NEGATIVE); URINE COLOR Straw (YELLOW); URINE GLUCOSE (UA) NORMAL (Normal); URINE KETONE NEGATIVE (NEGATIVE); URINE LEUKOCYTE ESTERASE 1+ Leu/uL (Negative); URINE PROTEIN NEGATIVE (NEGATIVE); URINE UROBILINOGEN NORMAL mg/dL (0.2-1.0); WBC URINE 9 /hpf (0-5)
[2017-05-02 22:09] LABS: URINE BLOOD NEGATIVE (NEGATIVE)
--- NOTE | 2017-05-03 16:54 | CARD ---
APPROVED REPORT EXAM: Two-dimensional and M-mode echocardiogram with Doppler and color Doppler. INDICATION Dizziness and Vertigo Murmur ACUTE ANEMIA M-Mode DIMENSIONS RVDd1.13 (2.1-3.2cm)Left Atrium (MM)3.07 (2.5-4.0cm) IVSd0.87 (0.7-1.1cm)Aortic Root2.25 (2.2-3.7cm) LVDd3.50 (4.0-5.6cm)Aortic Cusp Exc.1.21 (1.5-2.0cm) PWd0.93 (0.7-1.1cm)FS (%) 30 % LVDs2.45 (2.0-3.8cm)LVEF (%)58 (>50%) Aortic Valve AoV Peak Uvseduwy394.0cm/Milena Peak GR.9mmHg Mitral Valve MV E Mdxoijho89.0cm/sMV A Zfoutivm82.3cm/sE/A ratio1.0 TDI E/Lateral E'0.0E/Medial E'0.0 Tricuspid Valve TR Peak Hldoqcfc027vh/sTR Peak Gr.[id number] <Conclusion> Left ventricle: thickness: normal; size: normal; overall ejection fraction: 65%: diastolic filling pressures: normal Mitral valve: annulus: normal: leaflets: normal: excursion: normal; no significant trans-mitral gradient: mild incompetence: left atrium: normal Aortic valve: leaflets: normal: excursion: normal; no significant trans-aortic gradient: No significant incompetence: aortic root: normal Right sided Structures: Pulmonary valve: normal; no significant incompetence; Tricuspid valve: normal; no significant incompetence: Intra-cardiac hemodynamics: pulmonary systolic pressures: 35mmhg; central venous pressures: normal No pericardial effusion
== END 2017-05-02 19:35 | disposition home or self-care (01) | DRG 397 ==
LOC: C.ER 04:29 → C.9E 05:50 → C.6T 06:15 → OBSVTOIN 04-29 17:21 → C.9I 04-30 00:29 → C.3T 05-02 14:54
PROVIDERS: ADMIT Internal Medicine; ATTEND Internal Medicine
PROC: 0DJ08ZZ Inspection of Upper Intestinal Tract, Via Natural or Artificial Opening Endoscopic (ICD-10-PCS; 2017-04-27)
PROC: 30233N1 Transfusion of Nonautologous Red Blood Cells into Peripheral Vein, Percutaneous Approach (ICD-10-PCS; principal; 2017-04-30)
DX: D69.1 Qualitative platelet defects (principal); D62 Acute posthemorrhagic anemia; K92.0 Hematemesis; N39.0 Urinary tract infection, site not specified; E87.6 Hypokalemia; K06.8 Other specified disorders of gingiva and edentulous alveolar ridge; K59.00 Constipation, unspecified; L29.9 Pruritus, unspecified; K29.70 Gastritis, unspecified, without bleeding; E03.9 Hypothyroidism, unspecified

== ENCOUNTER 2017-05-02 20:39 | Emergency (ER) | payer OTHER ==
[2017-05-02 20:39] VITALS: BMI 26.9
[2017-05-02 22:11] LABS: BASO # 0.1 K/uL (0.0-0.2); BASO % 0.7 % (0.0-2.0); EOS # 0.2 K/uL (0.0-0.7); EOS % 1.8 % (0.0-4.0); HEMATOCRIT 27.2 % (34.0-47.0); LYMPH # 3.3 K/uL (1.0-4.3); LYMPH % 24.5 % (20.0-40.0); MEAN CELL VOLUME 82.6 fL (81.0-99.0); MEAN CORPUSCULAR HEMOGLOBIN 28.1 pg (27.0-31.0); MEAN CORPUSCULAR HGB CONC 34.1 g/dL (33.0-37.0); MEAN PLATELET VOLUME 8.9 fL (7.2-11.7); MONO # 0.7 K/uL (0.0-0.8); MONO % 5.2 % (0.0-10.0); NRBC % 0.1 % (0.0-2.0); WHITE BLOOD COUNT 13.6 K/uL (4.8-10.8)
[2017-05-02 22:19] LABS: CHLORIDE 99 mmol/L (98-107); INR 1.1; POTASSIUM 3.6 mmol/L (3.6-5.2); SODIUM 135 mmol/L (132-148)
[2017-05-02 22:22] LABS: BLOOD UREA NITROGEN 15 mg/dL (7-17); CARBON DIOXIDE 23 mmol/L (22-30); GFR AFRICAN-AMERICAN > 60; GLUCOSE,RANDOM 140 mg/dL (65-105)
[2017-05-02 22:23] LABS: CALCIUM 8.7 mg/dl (8.6-10.4)
--- NOTE | 2017-05-02 22:27 | C.PDOC ---
History Of Present Illness 46 year old patient presents to the ED complaining of bleeding from her left upper gum area that started at 7 pm today. The bleeding resolved upon arrival. Patient was discharged from the hospital today. Patient was evaluated for anemia , secondary to bleeding from Von Willeband's Disease. Patient received a blood transfusion here. Patient denies weakness or shortness of breath. Time Seen by Provider: 05/02/17 21:18 Chief Complaint (Nursing): Dental Pain History Per: Patient History/Exam Limitations: no limitations Onset/Duration Of Symptoms: Hrs (7 pm today) Current Symptoms Are (Timing): Still Present Severity: None Pain Scale Rating Of: 0 Quality: Positive for: Other Recent travel outside of the [place]: No Additional History Per: Prior Records Past Medical History Reviewed: Historical Data, Nursing Documentation, Vital Signs Vital Signs: Last Vital Signs Temp 98 F 05/02/17 20:48 Pulse 84 05/02/17 20:48 Resp 16 05/02/17 20:48 BP 120/70 05/02/17 20:48 Pulse Ox 97 05/02/17 22:41 - Medical History PMH: Anemia, Hypothyroidism Surgical History: Appendectomy (2009) - [facility] Procedures APPLICATION OF SPLINT (09/09/13) Family History: States: No Known Family Hx - Social History Hx Tobacco Use: No Hx Alcohol Use: No Hx Substance Use: No - Immunization History Hx Tetanus Toxoid Vaccination: No Hx Influenza Vaccination: No Hx Pneumococcal Vaccination: No Review Of Systems Except As Marked, All Systems Reviewed And Found Negative. Constitutional: Negative for: Weakness ENT: Positive for: Other (bleeding from left upper gum area) Respiratory: Negative for: Shortness of Breath Physical Exam - Physical Exam Appears: Non-toxic, No Acute Distress, Other (comfortable) Skin: Warm, Dry, No Pale Head: Atraumatic, Normacephalic Eye(s): bilateral: Normal Inspection Oral Mucosa: Moist Tongue: Normal Appearing Lips: Normal Appearing Teeth: Other ((+)poor dentition to upper mouth) Gingiva: Normal Appearing, No Bleeding (active) Throat: Normal Neck: Normal ROM, Supple Chest: Symmetrical Cardiovascular: Rhythm Regular Respiratory: Normal Breath Sounds, No Rales, No Rhonchi, No Wheezing Neurological/Psych: Oriented x3, Normal Speech, Normal Cognition Gait: Steady ED Course And Treatment - Laboratory Results Result Diagrams: 05/02/17 22:03 05/02/17 22:03 O2 Sat by Pulse Oximetry: 97 (room air) Pulse Ox Interpretation: Normal Progress Note: Labs were sent. Disposition Counseled Patient/Family Regarding: Studies Performed, Diagnosis, Need For Followup - Disposition Referrals: Zac Ley MD [Staff Provider] - Arturo Ley MD [Staff Provider] - Disposition: HOME/ ROUTINE Disposition Time: 22:45 Condition: STABLE Additional Instructions: SEGUIMIENTO CON EL HEMATLOGO DENTRO DE 1 SEMANA DEVUELVA A LA SAM DE EMERGENCIA SI USTED TIENE UN SANGRADO SIGNIFICATIVO, O SIENTE DEBILIDAD ETC Instructions: Congenital von Willebrand Disease (ED) Print Language: LAO - Clinical Impression Clinical Impression: Gingival bleeding, Von Willebrand disease, type I - Scribe Statement The provider has reviewed the documentation as recorded by the Scribe Sandra Maynard Provider Attestation: All medical record entries made by the Scribe were at my direction and personally dictated by me. I have reviewed the chart and agree that the record accurately reflects my personal performance of the history, physical exam, medical decision making, and the department course for this patient. I have also personally directed, reviewed, and agree with the discharge instructions and disposition.
[2017-05-02 22:55] VITALS: BP 126/77; PULSE 73; RESP 18; TEMP 98.2; O2SAT 98
== END 2017-05-02 22:52 | disposition home or self-care (01) ==
LOC: C.ER 20:39
DX: D68.0 Von Willebrand disease (principal); K06.8 Other specified disorders of gingiva and edentulous alveolar ridge

== ENCOUNTER 2017-05-03 11:53 | Observation (INO) | payer OTHER ==
[2017-05-03 11:54] VITALS: BMI 26.9
[2017-05-03] MEDS ORDERED: Sodium Chloride 0.9% 1,000 ML IV ONE (12:26)
[2017-05-03] MEDS ORDERED: Sodium Chloride 0.9% 1,000 ML ONE (12:38)
[2017-05-03 13:06] LABS: BASO # 0.1 K/uL (0.0-0.2); BASO % 1.3 % (0.0-2.0); EOS # 0.3 K/uL (0.0-0.7); EOS % 2.7 % (0.0-4.0); HEMATOCRIT 27.7 % (34.0-47.0); LYMPH # 2.7 K/uL (1.0-4.3); MEAN CELL VOLUME 83.1 fL (81.0-99.0); MEAN CORPUSCULAR HEMOGLOBIN 28.3 pg (27.0-31.0); MEAN CORPUSCULAR HGB CONC 34.1 g/dL (33.0-37.0); MEAN PLATELET VOLUME 8.7 fL (7.2-11.7); MONO # 0.5 K/uL (0.0-0.8); MONO % 5.3 % (0.0-10.0); NRBC % 0.1 % (0.0-2.0); RED CELL DISTRIBUTION WIDTH 16.8 % (11.5-14.5); WHITE BLOOD COUNT 9.8 K/uL (4.8-10.8)
[2017-05-03 13:13] LABS: CHLORIDE 99 mmol/L (98-107); POTASSIUM 4.7 mmol/L (3.6-5.2); SODIUM 135 mmol/L (132-148)
[2017-05-03 13:15] LABS: ALB/GLOB RATIO 1.3 (1.0-2.1); ALKALINE PHOSPHATASE 191 U/L (38-126); AST/SGOT 91 U/L (14-36); CARBON DIOXIDE 23 mmol/L (22-30); GFR AFRICAN-AMERICAN > 60
[2017-05-03 13:16] LABS: ALT/SGPT 72 U/L (9-52); BLOOD UREA NITROGEN 15 mg/dL (7-17); CALCIUM 8.5 mg/dl (8.6-10.4); GLUCOSE,RANDOM 123 mg/dL (65-105)
[2017-05-03 13:26] LABS: ALCOHOL SERUM < 10 mg/dl (0-10)
--- NOTE | 2017-05-03 13:35 | CT ---
PROCEDURE: CT HEAD WITHOUT CONTRAST. HISTORY: r/o ICH COMPARISON: None available. TECHNIQUE: Axial computed tomography images were obtained through the head/brain without intravenous contrast. Radiation dose: Total exam DLP = 981.84 mGy-cm. This CT exam was performed using one or more of the following dose reduction techniques: Automated exposure control, adjustment of the mA and/or kV according to patient size, and/or use of iterative reconstruction technique. FINDINGS: HEMORRHAGE: No intracranial hemorrhage. BRAIN: Rodrigues-white matter differentiation is preserved. There is no mass, mass effect or abnormal extra-axial fluid collection. There is no territorial infarction. VENTRICLES: The ventricles are normal in size, shape and configuration. CALVARIUM: There is no calvarial fracture or extracranial soft tissue swelling. PARANASAL SINUSES: Predominantly clear. MASTOID AIR CELLS: Predominantly clear. OTHER FINDINGS: None. IMPRESSION: No acute intracranial abnormality.
[2017-05-03 13:44] LABS: T4 6.86 ug/dL (5.5-11.0)
--- NOTE | 2017-05-03 15:13 | C.PDOC ---
History Of Present Illness <Wayne Huitron DO - Last Filed: 05/03/17 18:10> <DeshaunCele - Last Filed: 05/04/17 06:34> <JordonAshley - Last Filed: 05/04/17 08:16> 46 y/o female presents to ED, accompanied by her , who states that the patient has not been talking since 0230 this morning. reports the patient has been ambulating without difficulty at home and ate breakfast this morning. He denies fever or chills. As per , patient was seen at ER for bleeding gums last night, which resolved spontaneously, and was discharged home. Patient also recently discharged from the hospital following admission for Von Willebrand disease. When asked if she is in any distress, patient pointing to various points of her body. During physical exam, patient follows commands, but is resistant to some parts of the exam. No active bleeding on arrival. (Leorasalome Wayne PATINO) History Per: Family () History/Exam Limitations: None Onset/Duration Of Symptoms: Hrs Current Symptoms Are (Timing): Still Present Associated Symptoms: denies: Fever, Chills <Wayne Huitron DO - Last Filed: 05/03/17 18:10> <DianebrandynCele - Last Filed: 05/04/17 06:34> <JordonAshley - Last Filed: 05/04/17 08:16> Chief Complaint (Nursing): Altered Mental Status Past Medical History Reviewed: Historical Data, Nursing Documentation, Vital Signs - Medical History PMH: Anemia, Hypothyroidism Surgical History: Appendectomy (2009) Family History: States: Unknown Family Hx - Social History Hx Tobacco Use: No Hx Alcohol Use: No Hx Substance Use: No - Immunization History Hx Tetanus Toxoid Vaccination: No Hx Influenza Vaccination: No Hx Pneumococcal Vaccination: No <Wayne Huitron DO - Last Filed: 05/03/17 18:10> Review Of Systems Except As Marked, All Systems Reviewed And Found Negative. Constitutional: Negative for: Fever, Chills Cardiovascular: Negative for: Chest Pain Respiratory: Negative for: Shortness of Breath Gastrointestinal: Negative for: Vomiting Skin: Negative for: Rash Neurological: Positive for: Change in Speech (not speaking). Negative for: Seizures, Dizziness <Wayne Huitron DO - Last Filed: 05/03/17 18:10> Physical Exam - Physical Exam Appears: Non-toxic, No Acute Distress Skin: Warm, Dry, No Ecchymosis, Other (no peripheral edema) Head: Atraumatic, Normacephalic Eye(s): bilateral: PERRL, EOMI, Other (no retinal hemorrhages) Ear(s): Bilateral: Normal, Other (no blood in ear canal) Nose: Normal, No Epistaxis Oral Mucosa: Moist, Other (no bleeding in the mouth) Tongue: No Bleeding Gingiva: No Bleeding Throat: Normal, No Erythema, No Exudate, No Drooling Chest: Symmetrical Cardiovascular: Rhythm Regular Respiratory: Normal Breath Sounds, No Rales, No Rhonchi, No Wheezing Gastrointestinal/Abdominal: Soft, No Tenderness, No Distention, No Guarding, No Rebound Extremity: Normal ROM Neurological/Psych: Other (Neuro: follows simple commands, resistent to most of the exam) <Wayne Huitron DO - Last Filed: 05/03/17 18:10> ED Course And Treatment - Laboratory Results Result Diagrams: 05/03/17 12:59 05/03/17 12:59 O2 Sat by Pulse Oximetry: 100 (RA) Pulse Ox Interpretation: Normal <Wayne Huitron DO - Last Filed: 05/03/17 18:10> - Laboratory Results Result Diagrams: 05/03/17 12:59 05/03/17 12:59 <Cele Meade - Last Filed: 05/04/17 06:34> - Laboratory Results Result Diagrams: 05/03/17 12:59 05/03/17 12:59 <Ashley Ruvalcaba - Last Filed: 05/04/17 08:16> Medical Decision Making <Wayne Huitron DO - Last Filed: 05/03/17 18:10> <Cele Meade - Last Filed: 05/04/17 06:34> <Ashley Ruvalcaba - Last Filed: 05/04/17 08:16> Medical Decision Making: Progress Notes: Case discussed with Dr. Restrepo, neurologist, who reviewed the case. Feels presentation more psychiatric. Recommends brain MRI w/o contrast and to call back with results. MRI was done, I discussed this with Dr Restrepo, recommends a psychiatric evaluation. (Wayne Huitron DO) ED OBSERVATION <Wayne Huitron DO - Last Filed: 05/03/17 18:10> Date of observation admission: 05/03/17 Time of observation admission: 19:00 <Cele Meade - Last Filed: 05/04/17 06:34> <Ashley Ruvalcaba - Last Filed: 05/04/17 08:16> - Observation admission statement Patient is being placed in observation because:: psychotic reaction (Sapira,Valdi) - Goals of Observation Goals of observation are:: Evaluation by dr Jacobsen in am 05/04/17 (Cele Meade) - Progress Note Progress Note: 05/03/17 19:27 vitals stable 05/03/17 21:10 pt still refuses to react. keeps eye tightly closed when attempting to manually open them. Family at bedside 05/04/17 01:11 vitals stable, 05/04/17 03:34 vitals stable 05/04/17 06:34 vitals stable, no change (Sapira,Valdi) 05/04/17 08:16 PT MEDICALLY CLEARED FOR PSYCH EVAL. PENDING EVAL DR JACOBSEN (Ashley Ruvalcaba) Disposition <Wayne Huitron DO - Last Filed: 05/03/17 18:10> Counseled Patient/Family Regarding: Studies Performed, Diagnosis - Disposition Disposition Time: 19:00 <Cele Meade - Last Filed: 05/04/17 06:34> <Ashley Ruvalcaba - Last Filed: 05/04/17 08:16> - Disposition Condition: UNKNOWN - Clinical Impression Clinical Impression: Conversion disorder - Scribe Statement The provider has reviewed the documentation as recorded by the Scribe <Wayne Huitron DO - Last Filed: 05/03/17 18:10> <Cele Meade - Last Filed: 05/04/17 06:34> <Ashley Ruvalcaba - Last Filed: 05/04/17 08:16> - Scribe Statement Zia Valdovinos (Wayne Huitron DO) Provider Attestation: All medical record entries made by the Scribe were at my direction and personally dictated by me. I have reviewed the chart and agree that the record accurately reflects my personal performance of the history, physical exam, medical decision making, and the department course for this patient. I have also personally directed, reviewed, and agree with the discharge instructions and disposition. (Wayne Huitron DO) Physician Patient Turnover Patient Signed Over To: Ashley Ruvalcaba Handoff Comments: pending evaluation by dr Jacobsen <Cele Meade - Last Filed: 05/04/17 06:34>
[2017-05-03 15:38] LABS: URINE BILIRUBIN NEGATIVE (NEGATIVE); URINE BLOOD NEGATIVE (NEGATIVE); URINE COLOR Colorless (YELLOW); URINE GLUCOSE (UA) NORMAL (Normal); URINE KETONE NEGATIVE (NEGATIVE); URINE LEUKOCYTE ESTERASE NEG Leu/uL (Negative); URINE PROTEIN NEGATIVE (NEGATIVE); URINE UROBILINOGEN NORMAL mg/dL (0.2-1.0); WBC URINE 1 /hpf (0-5)
--- NOTE | 2017-05-03 17:27 | MRI ---
PROCEDURE: MRI BRAIN WITHOUT CONTRAST HISTORY: f/u to CT of head COMPARISON: Comparison made with CT scan brain 05/03/2017. TECHNIQUE: Multiplanar, multisequence MR images of the brain were obtained without intravenous contrast enhancement. The the the FINDINGS: HEMORRHAGE: No acute parenchymal, subarachnoid or extra-axial hemorrhage. No hemosiderin deposition identified on gradient echo weighted sequence. DWI: No evidence of an acute or early subacute infarction. BRAIN PARENCHYMA: There are a few tiny nonspecific foci of increased T2 signal scattered about the deep and subcortical white matter left cerebral hemisphere best seen on axial FLAIR series 7 image number 9 through 12. . In addition, mild confluent prolonged T2 signal changes seen in the very occipital horn white matter bilaterally. Changes are nonspecific though may represent mild chronic sequela of small vessel disease. Differential diagnosis would include sequela of old trauma, migraine headaches, post infectious/inflammatory etiologies. Atypical presentation of a demyelinating disease process would be less likely. In the Incidental note made of partially empty sella VENTRICLES: No evidence of obstructive hydrocephalus. CRANIUM: No gross calvarial abnormalities. . ORBITS: Orbits and contents appear unremarkable. PARANASAL SINUSES/MASTOIDS: Clear VASCULAR SYSTEM: Skull base flow voids intact. OTHER FINDINGS: None. IMPRESSION: No acute intracranial hemorrhage. There are multiple tiny focal areas of increased T2 signal seen scattered about the deep and subcortical white matter both cerebral hemispheres. Changes are nonspecific though could represent mild chronic sequela of small vessel disease. . See above discussion for additional differential diagnostic considerations. Partially empty sella.
--- NOTE | 2017-05-04 10:58 | PCM.PSYCH ---
Initial Psychiatric Evaluation - Initial Psychiatric Evaluation Type of Admission: Voluntary Legal Status: Capacity Chief Complaint (in patient's own words): "Depressed" History of Present Illness and Precipitating Events: The pt is seen, chart reviewed and case discussed. Consult was requested bc of her psychiatric sxs; mutism in particular. The pt is a 46 yo LF, with one adult child, house and lives with her . Translation was made by a bilingual nurse. She is now verbal and stated that she had been very worried and also was feeling depressed for a while. She denied SI, HI, del/castellanos but admits to feeling very anxious. Pt has VWB syndrome and recent bleeding made her worried a lot and she even got into a semi-delusional belief that she was still bleeding from her gingiva. She also had catatonic sxs yesterday but better today. Past psych hx: None Medical hx: VWB only. But her TFTs are abnormal too. Past Psychiatric History - Past Psychiatric History Previous Treatment History: None Pertinent Medical Hx (Current Medical&Sleep Prob, Allergies): Allergies Allergy/AdvReac Type Severity Reaction Status Date / Time naproxen AdvReac Verified 05/03/17 11:57 Levothyroxine [Synthroid] 125 mcg PO DAILY #30 05/02/17 Review of Systems - Neurological Neurological: UNREMARKABLE - Psychiatric Psychiatric: Abnormal Sleep Pattern, Anhedonia, Anxiety, Change in Appetite, Depression, Difficulty Concentrating. absent: Hallucinations, Homicidal Ideation, Suicidal Ideation, Visual Hallucinations Mental Status Examination - Personal Presentation Personal Presentation: Looks stated age - Affect Affect: Blunted - Motor Activity Motor Activity: Calm - Reliability in Providing Information Reliability in Providing Information: Fair - Speech Speech: Other (talks only a little, soft and slow) - Mood Mood: Depressed, Anxious - Formal Thought Process Formal Thought Process: No Impairment - Cognitive Functions Orientation: Person, Place, Situation, Time Sensorium: Alert Attention/Concentration: Easily distracted Abstract Thinking: Osgood Estimate of Intelligence: Below average Judgement: Intact, as evidence by: Good judgement Memory: Recent intact, as evidence by: Ability to recall events of the day, Remote intact, as evidenced by: Abilit to recall sig. life events - Risk Risk: Diminished functioning - Strength & Assets Inventory Strength & Assets Inventory: Family support, Cooperative DSM 5 DX - DSM 5 DSM 5 Diagnosis: Major depression, single, severe, with psychotic and catatonic sxs Anxiety d/o -unspecified - Recommended/Plan of Treatment Treatment Recommendations and Plan of Treatment: Start remeron 15 mg hs Seroquel 25 mg hs ativan 0.5 bid [id number] Referred to [facility] and support given Cleared for d/c 31 min
[2017-05-04 11:54] VITALS: BP 108/71; PULSE 76; RESP 18; TEMP 97.5; O2SAT 96
== END 2017-05-04 11:26 | disposition home or self-care (01) ==
LOC: C.ER 11:53 → SUPCPDRO 11:53 → C.9OBSV 19:01
PROVIDERS: ADMIT Emergency Medicine; ATTEND Emergency Medicine
DX: F32.3 Major depressive disorder, single episode, severe with psychotic features (principal); F41.9 Anxiety disorder, unspecified; E03.9 Hypothyroidism, unspecified; F44.9 Dissociative and conversion disorder, unspecified
CPT/HCPCS: 70450; 70551; 80053; 81001; 83690; 84436; 84439; 84443; 84480; 84484; 84703; 85025; 96360; 96372; G0378; G0480; J1630; J7040

== ENCOUNTER 2017-11-10 04:41 | Emergency (ER) | payer OTHER ==
[2017-11-10 04:41] VITALS: BMI 26.2
[2017-11-10] MEDS ORDERED: Absorbable Gelatin Sponge Size 12-7 ONE (05:32)
--- NOTE | 2017-11-10 05:52 | C.PDOC ---
History Of Present Illness 47 year old female presents to the ER after she woke up with bleeding to the right upper gum, status post tooth extraction 4 days ago. Denies trauma. Time Seen by Provider: 11/10/17 05:07 Chief Complaint (Nursing): Dental Pain History Per: Patient History/Exam Limitations: no limitations Onset/Duration Of Symptoms: Hrs, Sudden Onset Current Symptoms Are (Timing): Still Present Recent travel outside of the [place]: No Past Medical History Reviewed: Historical Data, Nursing Documentation, Vital Signs Vital Signs: Last Vital Signs Temp 98.8 F 11/10/17 06:02 Pulse 76 11/10/17 06:02 Resp 16 11/10/17 06:02 BP 133/91 H 11/10/17 06:02 Pulse Ox 96 11/10/17 06:52 - Medical History PMH: Anemia, Hypothyroidism Surgical History: Appendectomy (2009) - [facility] Procedures APPLICATION OF SPLINT (09/09/13) INSPECTION OF UPPER INTESTINAL TRACT, ENDO (04/29/17) TRANSFUSE NONAUT RED BLOOD CELLS IN PERIPH VEIN, PERC (04/29/17) Family History: States: Unknown Family Hx - Social History Hx Tobacco Use: No Hx Alcohol Use: No Hx Substance Use: No - Immunization History Hx Tetanus Toxoid Vaccination: No Hx Influenza Vaccination: No Hx Pneumococcal Vaccination: No Review Of Systems ENT: Positive for: Other (Gum bleeding). Negative for: Mouth Pain, Throat Pain Physical Exam - Physical Exam Appears: Non-toxic, No Acute Distress Skin: Normal Color, Warm, Dry Head: Atraumatic, Normacephalic, No Swelling (facial) Eye(s): bilateral: Normal Inspection Nose: Normal Oral Mucosa: Moist Tongue: Normal Appearing Lips: Normal Appearing Teeth: Normal Dentition, No Tender To Palpation, No Other (swelling, no hematoma to gum) Gingiva: Bleeding (to right upper posterior molar area) Throat: Normal, No Erythema Neck: Normal, Supple Neurological/Psych: Oriented x3 ED Course And Treatment O2 Sat by Pulse Oximetry: 96 (room air) Pulse Ox Interpretation: Normal Progress Note: Gelfoam and gauze applied to the right upper gum area with good control of the bleeding. Patient is no longer bleeding and feels safe being discharged, instructed to follow up with dentist for further evaluation. Disposition Counseled Patient/Family Regarding: Diagnosis, Need For Followup, Rx Given - Disposition Referrals: Dental clinic, Dental services [Other] Disposition: HOME/ ROUTINE Disposition Time: 05:49 Condition: STABLE Additional Instructions: Please follow up in dental clinic avoid rinse,straws, and chewing on hard foods Return to ER if worse Forms: [facility] (Guatemalan), Gen Discharge Inst Citizen Of [place] - Clinical Impression Clinical Impression: Gums, bleeding, H/O tooth extraction - PA / ANIMAL CARE TAKER / Resident Statement MD/DO has reviewed & agrees with the documentation as recorded. - Scribe Statement The provider has reviewed the documentation as recorded by the Scribmoise Pozo All medical record entries made by the Shari were at my direction and personally dictated by me. I have reviewed the chart and agree that the record accurately reflects my personal performance of the history, physical exam, medical decision making, and the department course for this patient. I have also personally directed, reviewed, and agree with the discharge instructions and disposition.
[2017-11-10 06:03] VITALS: BP 133/91; PULSE 76; RESP 16; TEMP 98.8
[2017-11-10 06:48] VITALS: O2SAT 96
== END 2017-11-10 06:03 | disposition home or self-care (01) ==
LOC: C.ER 04:41
DX: K06.8 Other specified disorders of gingiva and edentulous alveolar ridge (principal); K08.409 Partial loss of teeth, unspecified cause, unspecified class

== ENCOUNTER 2017-12-24 22:24 | Emergency (ER) | payer SELFPAY ==
[2017-12-24 22:24] VITALS: BMI 26.2
[2017-12-24] MEDS ORDERED: Enalaprilat 2.5 MG/2 ML IV STA (23:09)
[2017-12-24 23:18] LABS: BASO # 0.1 K/uL (0.0-0.2); BASO % 1.4 % (0.0-2.0); EOS # 0.2 K/uL (0.0-0.7); EOS % 3.8 % (0.0-4.0); HEMOGLOBIN 13.7 g/dL (11.0-16.0); LYMPH # 2.3 K/uL (1.0-4.3); MEAN CELL VOLUME 81.2 fL (81.0-99.0); MEAN CORPUSCULAR HGB CONC 35.7 g/dL (33.0-37.0); MEAN PLATELET VOLUME 9.1 fL (7.2-11.7); MONO # 0.4 K/uL (0.0-0.8); MONO % 6.7 % (0.0-10.0); NEUT # 2.7 K/uL (1.8-7.0); NEUT % 48.1 % (50.0-75.0); NRBC % 0.2 % (0.0-2.0); RBC 4.72 Mil/uL (3.80-5.20); RED CELL DISTRIBUTION WIDTH 12.9 % (11.5-14.5); WHITE BLOOD COUNT 5.7 K/uL (4.8-10.8)
[2017-12-24] MEDS ORDERED: Enalaprilat 2.5 MG/2 ML ONE (23:25)
[2017-12-24 23:27] LABS: INR 1.1; PROTHROMBIN TIME 12.1 SECONDS (9.7-12.2)
[2017-12-24] MEDS ORDERED: DESMOPRESSIN IV ONE (23:30)
[2017-12-24] MEDS ORDERED: SODIUM CHLORIDE 0.9% IV ONE (23:30)
[2017-12-24 23:31] LABS: CALCIUM 8.5 mg/dl (8.6-10.4); GFR AFRICAN-AMERICAN > 60; GFR NON-AFRICAN AMERICAN > 60
[2017-12-24 23:32] LABS: ALBUMIN 4.9 g/dL (3.5-5.0); ALT/SGPT 33 U/L (9-52); AST/SGOT 102 U/L (14-36); BLOOD UREA NITROGEN 16 mg/dL (7-17)
--- NOTE | 2017-12-25 00:33 | C.PDOC ---
History Of Present Illness 47 year old female presents to the ER with a complaint of 3 hours of bleeding from her chronic dental fracture and right upper premolar. Patient has a Hx of Von willebrand deficiency and is on desmopression 0.1mg Q8 PRN, she has multiple evalautions for the same but has not been consistent with her medication. Patient had a similar episode in October 2017 that was controlled only with gel foam and gauze applied to the area. Denies chest pain, SOB, dizziness, or lightheadedness. Time Seen by Provider: 12/24/17 22:57 Chief Complaint (Nursing): Medical Clearance History Per: Patient History/Exam Limitations: no limitations Onset/Duration Of Symptoms: Hrs Current Symptoms Are (Timing): Still Present Recent travel outside of the [place]: No Past Medical History Reviewed: Historical Data, Nursing Documentation, Vital Signs Vital Signs: Last Vital Signs Temp 98.3 F 12/24/17 22:33 Pulse 88 12/25/17 00:22 Resp 16 12/25/17 00:22 BP 108/58 L 12/25/17 00:22 Pulse Ox 99 12/25/17 00:34 - Medical History PMH: Anemia, HTN, Hypothyroidism Surgical History: Appendectomy (2009) - [facility] Procedures APPLICATION OF SPLINT (09/09/13) INSPECTION OF UPPER INTESTINAL TRACT, ENDO (04/29/17) TRANSFUSE NONAUT RED BLOOD CELLS IN PERIPH VEIN, PERC (04/29/17) Family History: States: Unknown Family Hx - Social History Hx Tobacco Use: No Hx Alcohol Use: No Hx Substance Use: No - Immunization History Hx Tetanus Toxoid Vaccination: No Hx Influenza Vaccination: No Hx Pneumococcal Vaccination: No Review Of Systems ENT: Positive for: Other (Bleeding from teeth) Cardiovascular: Negative for: Chest Pain, Palpitations, Light Headedness Respiratory: Negative for: Shortness of Breath Neurological: Negative for: Dizziness Physical Exam - Physical Exam Appears: Non-toxic Skin: Normal Color, Warm, Dry Head: Atraumatic, Normacephalic Eye(s): bilateral: Normal Inspection Oral Mucosa: Moist Teeth: Other (Dental fracture to right upper premolar with mild bleeding and scant clotting) Throat: Normal, No Erythema Neck: Normal, Supple Chest: Symmetrical, No Tenderness Cardiovascular: Rhythm Regular Respiratory: Normal Breath Sounds, No Rales, No Rhonchi, No Wheezing Neurological/Psych: Oriented x3, Normal Speech ED Course And Treatment - Laboratory Results Result Diagrams: 12/24/17 23:15 12/24/17 23:15 Lab Interpretation: Abnormal (PTT 44 H) ECG: Interpreted By Ia ECG Rhythm: Sinus Rhythm ECG Interpretation: Normal Rate From EC O2 Sat by Pulse Oximetry: 99 Pulse Ox Interpretation: Normal Progress Note: Desmopressin slow IV over 1/2 hour and vasotec IV, with excellent hemostasis. Reevaluation Time: 00:32 Reassessment Condition: Improved - Physician Consult Information Outcome Of Conversation: d/w Dr. Arturo Ley @ 2300 and 0030, consult much appreciated. recommendations followed and results reported back to Dr. Ley. Asks for pt to f/u in outpatient Clinic in 3 days for repeat blood testing for mild elevated bili's/LFT's- assumed to be related to digested blood today. Medical Decision Making Medical Decision Making: R upper premolar fracture with occasional bleeding, worse in pt with VWF def, improved in October 2017 w gelfoam, and today with Desmopressin IV and BP control. Disposition Doctor Will See Patient In The: Office Counseled Patient/Family Regarding: Studies Performed, Diagnosis - Disposition Referrals: [facility] [Outside] Arturo Ley MD [Staff Provider] - Disposition: HOME/ ROUTINE Disposition Time: 00:34 Condition: GOOD Additional Instructions: favor de presentar en la [facility] para re-checkar jonathan examenes de jann (CBC, CMP) en [address] Arturo Ley. Si sangra otra vez, mell felix Desmopressin 0.1 mg cada 8 horas olinda necessario ( hasta 3 veces al dipesh) sigue Lisinopril 20 mg diario adelante- para controlar felix pression desirae mejor. ( tambien ayuda en prevenir el sangramiento) Prescriptions: Lisinopril [Zestril] 20 mg PO DAILY #30 tablet Instructions: Congenital von Willebrand Disease (ED) Forms: [facility] (Mohawk) Print Language: PANAMANIAN - Clinical Impression Clinical Impression: Bleeding diathesis, Von Willebrand disease, type I - PA / SHIPPING HELPER / Resident Statement MD/DO has reviewed & agrees with the documentation as recorded. - Scribe Statement The provider has reviewed the documentation as recorded by the Scribe Gene Pozo All medical record entries made by the Brandinibmoise were at my direction and personally dictated by me. I have reviewed the chart and agree that the record accurately reflects my personal performance of the history, physical exam, medical decision making, and the department course for this patient. I have also personally directed, reviewed, and agree with the discharge instructions and disposition.
[2017-12-25 00:49] VITALS: BP 113/61; PULSE 80; RESP 15; TEMP 98.6; O2SAT 100
--- NOTE | 2017-12-25 17:11 | CARD ---
APPROVED REPORT EKG Measurement Heart [id number] <Conclusion> Normal sinus rhythm Normal ECG
== END 2017-12-25 00:49 | disposition home or self-care (01) ==
LOC: C.ER 22:24
DX: D68.0 Von Willebrand disease (principal); D69.9 Hemorrhagic condition, unspecified; I10 Essential (primary) hypertension; E03.9 Hypothyroidism, unspecified
CPT/HCPCS: 80053; 85025; 85610; 85730; 93005; 96360; 99283; J2597

== ENCOUNTER 2018-01-09 17:19 | Emergency (ER) | payer SELFPAY ==
[2018-01-09 17:19] VITALS: BMI 26.2
[2018-01-09 17:52] VITALS: BP 136/85; PULSE 77; RESP 18; TEMP 98.8; O2SAT 99
--- NOTE | 2018-01-09 19:27 | C.PDOC ---
History Of Present Illness 47 y/o male presents to the ER complaining of flu-like symptoms including cough and fever. Patient is also complaining of body aches. Patient denies nausea, vomiting, and diarrhea. Time Seen by Provider: 01/09/18 17:55 Chief Complaint (Nursing): Flu-like Symptoms History Per: Patient History/Exam Limitations: no limitations Onset/Duration Of Symptoms: Days Current Symptoms Are (Timing): Still Present Associated Symptoms: Fever, Cough. denies: Nausea, Vomiting, Diarrhea Severity: Moderate Past Medical History Reviewed: Historical Data, Nursing Documentation, Vital Signs Vital Signs: Last Vital Signs Temp 98.8 F 01/09/18 17:49 Pulse 77 01/09/18 17:49 Resp 18 01/09/18 17:49 BP 136/85 01/09/18 17:49 Pulse Ox 99 01/09/18 19:27 - Medical History PMH: Anemia, HTN (NO MEDS 01/09/18), Hypothyroidism Denies: Diabetes, Hepatitis, HIV, Chronic Kidney Disease, Seizures, Sexually Transmitted Disease Surgical History: Appendectomy (2009) - [facility] Procedures APPLICATION OF SPLINT (09/09/13) INSPECTION OF UPPER INTESTINAL TRACT, ENDO (04/29/17) TRANSFUSE NONAUT RED BLOOD CELLS IN PERIPH VEIN, PERC (04/29/17) Family History: States: No Known Family Hx - Social History Hx Tobacco Use: No Hx Alcohol Use: No Hx Substance Use: No - Immunization History Hx Tetanus Toxoid Vaccination: No Hx Influenza Vaccination: No Hx Pneumococcal Vaccination: No Review Of Systems Except As Marked, All Systems Reviewed And Found Negative. Constitutional: Positive for: Fever, Malaise Respiratory: Positive for: Cough Gastrointestinal: Negative for: Nausea, Vomiting, Diarrhea Physical Exam - Physical Exam Appears: Non-toxic, No Acute Distress Skin: Normal Color, Warm Head: Atraumatic, Normacephalic Eye(s): bilateral: Normal Inspection Ear(s): Bilateral: Normal Nose: Normal Oral Mucosa: Moist Throat: Normal, No Erythema, No Exudate Neck: Supple Chest: Symmetrical Cardiovascular: Rhythm Regular Respiratory: Normal Breath Sounds, No Accessory Muscle Use, No Rales, No Rhonchi , No Wheezing Extremity: Normal ROM Neurological/Psych: Oriented x3, Normal Speech, Normal Motor, Normal Sensation ED Course And Treatment O2 Sat by Pulse Oximetry: 99 (RA) Pulse Ox Interpretation: Normal Progress Note: Patient given Tamiflu and Tylenol. Patient discharged and told to follow up with PMD in 1-2 days. Disposition - Disposition Disposition: HOME/ ROUTINE Disposition Time: 19:25 Condition: STABLE Additional Instructions: Follow up with your PMD within 1-2 days. Return to Ed if feel worse. Prescriptions: Brompheniramine/Pseudoephed/Dm [Bromfed Dm Cough 118 ml] 10 ml PO Q4 #300 ml Fluticasone Nasal [Flonase] 1 spr NS BID #1 spr Oseltamivir [Tamiflu] 75 mg PO BID #9 cap Acetaminophen [Tylenol 325mg tab] 2 tab PO Q6 #50 tab Instructions: Influenza (ED) Forms: [facility] (Albanian), Work Excuse Print Language: PORTUGUESE - Clinical Impression Clinical Impression: Influenza - PA / COLLEGE [employer]UCATION DEAN / Resident Statement MD/DO has reviewed & agrees with the documentation as recorded. - Scribe Statement The provider has reviewed the documentation as recorded by the Shari Mendoza Provider Attestation All medical record entries made by the Brandinibmoise were at my direction and personally dictated by me. I have reviewed the chart and agree that the record accurately reflects my personal performance of the history, physical exam, medical decision making, and the department course for this patient. I have also personally directed, reviewed, and agree with the discharge instructions and disposition.
== END 2018-01-09 19:39 | disposition home or self-care (01) ==
LOC: C.ER 17:19
DX: J11.1 Influenza due to unidentified influenza virus with other respiratory manifestations (principal); I10 Essential (primary) hypertension

== ENCOUNTER 2018-12-02 10:28 | Emergency (ER) | payer OTHER ==
[2018-12-02 10:28] VITALS: BMI 26.2
[2018-12-02] MEDS ORDERED: Sodium Chloride 0.9% 1,000 ML IV ONE (11:10)
--- NOTE | 2018-12-02 11:18 | C.PDOC ---
History Of Present Illness 48 years old female presents to ED for complaints of non-bloody diarrhea that began 5 days ago. Denies fever, nausea, vomiting, or pain. Patient reports taking pepto bismol with no relief. Time Seen by Provider: 12/02/18 10:45 Chief Complaint (Nursing): GI Problem History Per: Patient History/Exam Limitations: no limitations Onset/Duration Of Symptoms: Hrs Current Symptoms Are (Timing): Still Present Recent travel outside of the [place]: No Past Medical History Reviewed: Historical Data, Nursing Documentation, Vital Signs Vital Signs: Last Vital Signs Temp 98 F 12/02/18 10:40 Pulse 66 12/02/18 10:40 Resp 18 12/02/18 10:40 BP 105/73 12/02/18 10:40 Pulse Ox 98 12/02/18 10:40 - Medical History PMH: Anemia, HTN (NO MEDS 01/09/18), Hypothyroidism Denies: Diabetes Surgical History: Appendectomy (2009) - [facility] Procedures APPLICATION OF SPLINT (09/09/13) INSPECTION OF UPPER INTESTINAL TRACT, ENDO (04/29/17) TRANSFUSE NONAUT RED BLOOD CELLS IN PERIPH VEIN, PERC (04/29/17) Family History: States: Unknown Family Hx - Social History Hx Tobacco Use: No Hx Alcohol Use: No Hx Substance Use: No - Immunization History Hx Tetanus Toxoid Vaccination: No Hx Influenza Vaccination: No Hx Pneumococcal Vaccination: No Review Of Systems Constitutional: Negative for: Fever, Chills Gastrointestinal: Positive for: Diarrhea. Negative for: Nausea, Vomiting, Abdominal Pain, Constipation, Hematochezia Genitourinary: Negative for: Dysuria Skin: Negative for: Rash Neurological: Negative for: Weakness, Numbness Physical Exam - Physical Exam Appears: Non-toxic, No Acute Distress, Other (Comfortable ) Skin: Normal Color, Warm, Dry, No Rash Head: Atraumatic, Normacephalic Eye(s): bilateral: Normal Inspection, PERRL, EOMI Oral Mucosa: Moist Neck: Normal ROM, Supple Chest: Symmetrical, No Tenderness Cardiovascular: Rhythm Regular, No Murmur Respiratory: Normal Breath Sounds, No Rales, No Rhonchi, No Wheezing Gastrointestinal/Abdominal: Bowel Sounds (Active ), Soft, No Tenderness, No Distention, No Guarding, No Rebound Extremity: Normal ROM Extremity: Bilateral: Atraumatic, Normal Color And Temperature, Normal ROM Neurological/Psych: Oriented x3, Normal Speech, Other Gait: Steady ED Course And Treatment - Laboratory Results Result Diagrams: 12/02/18 11:40 12/02/18 11:40 O2 Sat by Pulse Oximetry: 98 (RA) Pulse Ox Interpretation: Normal Medical Decision Making Medical Decision Making: Plan: * IV fluids * Blood work * Urinalysis Progress: Labs reviewed and unremarkable. Discussed results with patient, and copy of report was provided. On re-examination, patient is resting comfortably in no acute distress. Abdomen soft and nontender. Patient feels comfortable going home and will be discharged. Patient given follow up instructions. Instructed to return to ER if symptoms worsen or new symptoms arise. Disposition Counseled Patient/Family Regarding: Diagnosis, Need For Followup, Rx Given - Disposition Referrals: [facility] [Outside] [facility] [Outside] Disposition: HOME/ ROUTINE Disposition Time: 12:43 Condition: GOOD Prescriptions: Loperamide [Imodium] 2 mg PO Q4 PRN #12 cap PRN Reason: Diarrhea Saccharomyces Boulardi [Florastor] 250 mg PO BID #20 cap Instructions: Diarrhea and Traveler's Diarrhea, Adult (DC) Print Language: TURKISH - POA Present On Arrival: None - Clinical Impression Clinical Impression: Diarrhea - PA / FULL STACK DEVELOPER / Resident Statement MD/DO has reviewed & agrees with the documentation as recorded. - Scribe Statement The provider has reviewed the documentation as recorded by the Scribmoise Briceno All medical record entries made by the Brandinibe were at my direction and personally dictated by me. I have reviewed the chart and agree that the record accurately reflects my personal performance of the history, physical exam, medical decision making, and the department course for this patient. I have also personally directed, reviewed, and agree with the discharge instructions and disposition.
[2018-12-02 11:45] LABS: BASO % 0.9 % (0.0-2.0); EOS # 0.2 K/uL (0.0-0.7); EOS % 4.3 % (0.0-4.0); HEMOGLOBIN 13.7 g/dL (11.0-16.0); LYMPH # 1.6 K/uL (1.0-4.3); LYMPH % 33.9 % (20.0-40.0); MEAN CELL VOLUME 80.8 fL (81.0-99.0); MEAN CORPUSCULAR HEMOGLOBIN 27.8 pg (27.0-31.0); MEAN CORPUSCULAR HGB CONC 34.4 g/dL (33.0-37.0); MEAN PLATELET VOLUME 8.9 fL (7.2-11.7); MONO # 0.4 K/uL (0.0-0.8); MONO % 8.1 % (0.0-10.0); NEUT # 2.6 K/uL (1.8-7.0); NEUT % 52.8 % (50.0-75.0); NRBC % 0.1 % (0.0-2.0); RBC 4.92 Mil/uL (3.80-5.20); RED CELL DISTRIBUTION WIDTH 13.1 % (11.5-14.5); WHITE BLOOD COUNT 4.8 K/uL (4.8-10.8)
[2018-12-02] MEDS ORDERED: Sodium Chloride 0.9% 1,000 ML ONE (11:46)
[2018-12-02 11:51] LABS: SQUAMOUS EPITHIAL < 1 /hpf (0-5); URINE BILIRUBIN NEGATIVE (NEGATIVE); URINE BLOOD 1+ (NEGATIVE); URINE CLARITY Clear (Clear); URINE COLOR Yellow (YELLOW); URINE GLUCOSE (UA) NORMAL (Normal); URINE LEUKOCYTE ESTERASE TRACE Leu/uL (Negative); URINE PROTEIN NEGATIVE (NEGATIVE); URINE UROBILINOGEN NORMAL mg/dL (0.2-1.0)
[2018-12-02 11:56] LABS: ALB/GLOB RATIO 1.3 (1.0-2.1); ALBUMIN 4.7 g/dL (3.5-5.0); ALT/SGPT 36 U/L (9-52); AST/SGOT 51 U/L (14-36); BLOOD UREA NITROGEN 14 mg/dL (7-17); CALCIUM 8.8 mg/dl (8.6-10.4); GFR NON-AFRICAN AMERICAN > 60
[2018-12-02 12:48] VITALS: BP 130/79; PULSE 70; RESP 16; TEMP 98.3
[2018-12-02 15:08] VITALS: O2SAT 98
== END 2018-12-02 13:52 | disposition home or self-care (01) ==
LOC: C.ER 10:28
DX: R19.7 Diarrhea, unspecified (principal)
CPT/HCPCS: 80053; 81001; 85025; 96360; 99285; J7030

== ENCOUNTER 2019-02-26 17:51 | Emergency (ER) | payer OTHER ==
[2019-02-26 18:18] VITALS: BMI 26.5
[2019-02-26 18:25] VITALS: BP 114/82; PULSE 83; RESP 17; TEMP 98.4; O2SAT 100
--- NOTE | 2019-02-26 20:02 | C.PDOC ---
History Of Present Illness 48 year old female presents to ED with complaint of bleeding from the gums that began today. Patient is with her , who states that she was bleeding today while she was eating and used multiple paper towels for the bleeding. Patient did not go to the dentist and is not actively bleeding. Patient has a PMHx of Von Willebrand deficiency. Patient's blueprint tracer is Dr. Ley and was last seen last year. Patient does not currently feel any pain. Patient's reports that she has been tire for 1 month and has been sleeping very heavily. Patient denies fever and chills. Chief Complaint (Nursing): Dental Pain History Per: Patient History/Exam Limitations: no limitations Onset/Duration Of Symptoms: Days (1) Current Symptoms Are (Timing): Gone Past Medical History Reviewed: Historical Data, Nursing Documentation, Vital Signs Vital Signs: Last Vital Signs Temp 98.4 F 02/26/19 18:19 Pulse 83 02/26/19 18:19 Resp 17 02/26/19 18:19 BP 114/82 02/26/19 18:19 Pulse Ox 100 02/26/19 18:19 - Medical History PMH: Anemia, HTN (NO MEDS 01/09/18), Hypothyroidism Denies: Diabetes, Hepatitis, HIV, Chronic Kidney Disease, Seizures, Sexually Transmitted Disease Surgical History: Appendectomy (2009) - [facility] Procedures APPLICATION OF SPLINT (09/09/13) INSPECTION OF UPPER INTESTINAL TRACT, ENDO (04/29/17) TRANSFUSE NONAUT RED BLOOD CELLS IN PERIPH VEIN, PERC (04/29/17) Family History: States: Unknown Family Hx - Social History Hx Tobacco Use: No Hx Alcohol Use: No Hx Substance Use: No - Immunization History Hx Tetanus Toxoid Vaccination: No Hx Influenza Vaccination: No Hx Pneumococcal Vaccination: No Review Of Systems Constitutional: Negative for: Fever, Chills, Weakness ENT: Positive for: Other (bleeding from the gums) Neurological: Negative for: Weakness, Numbness, Dizziness Physical Exam - Physical Exam Skin: Pale ED Course And Treatment - Laboratory Results Result Diagrams: 02/26/19 20:55 O2 Sat by Pulse Oximetry: 100 (in RA) Medical Decision Making Medical Decision Making: Impression: 48 year old female with complaint of bleeding from the gums Plan: CBC ordered for patient Disposition Counseled Patient/Family Regarding: Diagnosis, Need For Followup, Rx Given - Disposition Referrals: Shady Coleman DDS [Medical Doctor] - Donna العلي DMD [Staff Provider] - [facility] [Outside] Disposition: HOME/ ROUTINE Disposition Time: 21:18 Condition: STABLE Additional Instructions: Mouthwash twice a day follow up with dental follow up with pmd to assess von wilbrand disease return to ED if symptoms worsen Prescriptions: Chlorhexidine Gluconate [Peridex] 15 ml PO BID #473 ml Instructions: Bleeding Gums (DC) Forms: [employer] (Solomon Islander) Print Language: POLISH - Clinical Impression Clinical Impression: Gingival bleeding, Von Willebrand disease, type I - PA / WHARF OPERATOR / Resident Statement MD/DO has reviewed & agrees with the documentation as recorded. (Alejandrina Boateng) - Scribe Statement The provider has reviewed the documentation as recorded by the Scribe (Alejandrina Boateng) All medical record entries made by the Scribe were at my direction and personally dictated by me. I have reviewed the chart and agree that the record accurately reflects my personal performance of the history, physical exam, medical decision making, and the department course for this patient. I have also personally directed, reviewed, and agree with the discharge instructions and disposition.
[2019-02-26 21:05] LABS: HEMOGLOBIN 12.8 g/dL (11.0-16.0); MEAN CELL VOLUME 80.4 fL (81.0-99.0); MEAN CORPUSCULAR HEMOGLOBIN 26.9 pg (27.0-31.0); MEAN CORPUSCULAR HGB CONC 33.5 g/dL (33.0-37.0); MEAN PLATELET VOLUME 9.3 fL (7.2-11.7); RBC 4.75 Mil/uL (3.80-5.20); WHITE BLOOD COUNT 5.8 K/uL (4.8-10.8)
== END 2019-02-26 21:40 | disposition home or self-care (01) ==
LOC: C.ER 17:51
DX: K06.8 Other specified disorders of gingiva and edentulous alveolar ridge (principal); D68.0 Von Willebrand disease

== ENCOUNTER 2019-03-04 19:11 | Emergency (ER) | payer SELFPAY ==
[2019-03-04 19:12] VITALS: BMI 26.5
[2019-03-04 20:10] VITALS: TEMP 98.2
--- NOTE | 2019-03-04 22:24 | C.PDOC ---
History Of Present Illness Patient presents with diffuse abdominal pain and leg pain for one week. Patient is able to ambulate without difficulty. Denies nausea, vomiting, or diarrhea. Time Seen by Provider: 03/04/19 22:23 Chief Complaint (Nursing): Abdominal Pain History Per: Patient History/Exam Limitations: no limitations Onset/Duration Of Symptoms: Days Current Symptoms Are (Timing): Still Present Location Of Pain/Discomfort: Diffuse Radiation Of Pain To:: None Quality Of Discomfort: Unable To Describe Associated Symptoms: Other (Leg pain) Exacerbating Factors: None Alleviating Factors: None Recent travel outside of the [place]: No Past Medical History Reviewed: Historical Data, Nursing Documentation, Vital Signs Vital Signs: Last Vital Signs Temp 98.2 F 03/04/19 20:07 Pulse 71 03/04/19 20:07 Resp 16 03/04/19 20:07 BP 109/74 03/04/19 20:07 Pulse Ox 99 03/04/19 20:07 - Medical History PMH: Anemia, HTN (NO MEDS 01/09/18), Hypothyroidism Denies: Diabetes, Hepatitis, HIV, Chronic Kidney Disease, Seizures, Sexually Transmitted Disease Surgical History: Appendectomy (2009) - [facility] [employer] [facility] [employer] Procedures APPLICATION OF SPLINT (09/09/13) INSPECTION OF UPPER INTESTINAL TRACT, ENDO (04/29/17) TRANSFUSE NONAUT RED BLOOD CELLS IN PERIPH VEIN, PERC (04/29/17) Family History: States: No Known Family Hx - Social History Hx Tobacco Use: No Hx Alcohol Use: No Hx Substance Use: No - Immunization History Hx Tetanus Toxoid Vaccination: No Hx Influenza Vaccination: No Hx Pneumococcal Vaccination: No Review Of Systems Constitutional: Negative for: Fever, Chills Cardiovascular: Negative for: Chest Pain, Palpitations Respiratory: Negative for: Cough, Hemoptysis Gastrointestinal: Positive for: Abdominal Pain. Negative for: Nausea, Vomiting, Diarrhea Musculoskeletal: Positive for: Leg Pain Neurological: Negative for: Weakness, Numbness Physical Exam - Physical Exam Appears: Non-toxic Skin: Warm, Dry Head: Normacephalic Oral Mucosa: Moist Chest: Symmetrical, No Tenderness Cardiovascular: Rhythm Regular Respiratory: No Rales, No Rhonchi, No Wheezing Gastrointestinal/Abdominal: Soft, Tenderness (Mild mid epigastric), No Guarding, No Rebound Back: No CVA Tenderness Extremity: No Tenderness Neurological/Psych: Oriented x3 ED Course And Treatment - Laboratory Results Result Diagrams: 03/04/19 22:52 03/04/19 22:52 O2 Sat by Pulse Oximetry: 99 (Room air) Pulse Ox Interpretation: Normal Progress Note: Blood work and urinalysis ordered. Protonix, tylenol, and IV fluids administered. Reevaluation Time: 01:42 Reassessment Condition: Improved Disposition Counseled Patient/Family Regarding: Studies Performed, Diagnosis, Need For Followup, Rx Given - Disposition Referrals: [facility] [Outside] [facility] [Outside] Disposition: HOME/ ROUTINE Disposition Time: 22:23 Condition: FAIR Additional Instructions: Please return if symptoms recur Prescriptions: Nitrofurantoin Macrocrystals [Macrobid] 1 cap PO BID #14 cap Pantoprazole Sodium [Protonix] 40 mg PO DAILY #14 ect Instructions: Urinary Tract Infection, Adult (DC), Acute Abdomen (Belly Pain), Adult (DC) Forms: [employer] (Chinese) Print Language: PRYDEINIG - Clinical Impression Clinical Impression: Abdominal pain, UTI (urinary tract infection) - Scribe Statement The provider has reviewed the documentation as recorded by the Scribmoise Pozo All medical record entries made by the Scribe were at my direction and personally dictated by me. I have reviewed the chart and agree that the record accurately reflects my personal performance of the history, physical exam, me dical decision making, and the department course for this patient. I have also personally directed, reviewed, and agree with the discharge instructions and disposition.
[2019-03-04] MEDS ORDERED: Sodium Chloride 0.9% 1,000 ML IV ONE (22:27)
[2019-03-04 22:55] LABS: EOS # 0.2 K/uL (0.0-0.7); EOS % 3.6 % (0.0-4.0); HEMOGLOBIN 12.5 g/dL (11.0-16.0); LYMPH # 1.9 K/uL (1.0-4.3); LYMPH % 38.5 % (20.0-40.0); MEAN CORPUSCULAR HEMOGLOBIN 27.5 pg (27.0-31.0); MEAN CORPUSCULAR HGB CONC 33.9 g/dL (33.0-37.0); MONO # 0.3 K/uL (0.0-0.8); MONO % 5.8 % (0.0-10.0); NEUT # 2.6 K/uL (1.8-7.0); NEUT % 51.1 % (50.0-75.0); RBC 4.56 Mil/uL (3.80-5.20); RED CELL DISTRIBUTION WIDTH 13.6 % (11.5-14.5)
[2019-03-04 23:11] LABS: SQUAMOUS EPITHIAL 1 /hpf (0-5); URINE BACTERIA OCC (<OCC); URINE BILIRUBIN NEGATIVE (NEGATIVE); URINE BLOOD NEGATIVE (NEGATIVE); URINE CLARITY Hazy (Clear); URINE COLOR Yellow (YELLOW); URINE GLUCOSE (UA) NORMAL (Normal); URINE PROTEIN NEGATIVE (NEGATIVE); URINE UROBILINOGEN NORMAL mg/dL (0.2-1.0)
[2019-03-04 23:13] LABS: HCG,QUALITATIVE URINE NEGATIVE (NEGATIVE); URINE LEUKOCYTE ESTERASE 1+ Leu/uL (Negative)
[2019-03-04 23:18] LABS: ALB/GLOB RATIO 1.4 (1.0-2.1); ALBUMIN 4.5 g/dL (3.5-5.0); ALT/SGPT 21 U/L (9-52); AST/SGOT 67 U/L (14-36); BLOOD UREA NITROGEN 19 mg/dL (7-17); GFR NON-AFRICAN AMERICAN > 60; LIPASE 77 U/L (23-300)
[2019-03-05 01:58] VITALS: BP 122/82; PULSE 67; RESP 20; O2SAT 98
== END 2019-03-05 02:21 | disposition home or self-care (01) ==
LOC: C.ER 19:11
DX: N39.0 Urinary tract infection, site not specified (principal); R10.13 Epigastric pain
CPT/HCPCS: 80053; 81001; 83690; 84703; 85025; 96374; 99285; C9113; J7030

== ENCOUNTER 2019-03-20 20:46 | Emergency (ER) | payer SELFPAY ==
[2019-03-20 20:47] VITALS: BMI 26.5
[2019-03-20 21:07] VITALS: O2SAT 99
--- NOTE | 2019-03-20 21:35 | C.PDOC ---
History Of Present Illness 48 year old female presents to the ED complaining of crampy abdominal pain for one week. Reports pain is intermittent. States that every time she tries to eat she feels nausea. Denies any vomiting, changes in bowel or bladder movements, vaginal bleeding, vaginal discharge, dysuria, hematuria, fever or chills. Reports last menstrual period was over one year ago. States pain felt worse today and she was dizzy which prompted ED visit. Time Seen by Provider: 03/20/19 21:23 Chief Complaint (Nursing): Abdominal Pain History Per: Patient History/Exam Limitations: no limitations Onset/Duration Of Symptoms: Days Current Symptoms Are (Timing): Still Present Associated Symptoms: Nausea. denies: Fever, Chills, Vomiting, Diarrhea, Back Pain, Chest Pain, Urinary Symptoms Past Medical History Reviewed: Historical Data, Nursing Documentation, Vital Signs Vital Signs: Last Vital Signs Temp 99 F 03/20/19 21:01 Pulse 68 03/20/19 21:01 Resp 20 03/20/19 21:01 BP 134/82 03/20/19 21:01 Pulse Ox 99 03/20/19 21:01 - Medical History PMH: Anemia, HTN (NO MEDS 01/09/18), Hypothyroidism Denies: Diabetes, Hepatitis, HIV, Chronic Kidney Disease, Seizures, Sexually Transmitted Disease Surgical History: Appendectomy (2009) - [facility] Procedures APPLICATION OF SPLINT (09/09/13) INSPECTION OF UPPER INTESTINAL TRACT, ENDO (04/29/17) TRANSFUSE NONAUT RED BLOOD CELLS IN PERIPH VEIN, PERC (04/29/17) Family History: States: No Known Family Hx - Social History Hx Tobacco Use: No Hx Alcohol Use: No Hx Substance Use: No - Immunization History Hx Tetanus Toxoid Vaccination: No Hx Influenza Vaccination: No Hx Pneumococcal Vaccination: No Review Of Systems Constitutional: Negative for: Fever, Chills Respiratory: Negative for: Shortness of Breath Gastrointestinal: Positive for: Nausea, Abdominal Pain. Negative for: Vomiting, Diarrhea, Constipation, Hematochezia Genitourinary: Negative for: Dysuria, Hematuria, Vaginal Discharge, Vaginal Bleeding Musculoskeletal: Negative for: Back Pain Neurological: Positive for: Dizziness. Negative for: Headache Physical Exam - Physical Exam Appears: Non-toxic, No Acute Distress Skin: Warm, Dry, No Rash Head: Normacephalic Eye(s): bilateral: Normal Inspection Nose: Normal Oral Mucosa: Moist Neck: Supple Chest: Symmetrical Cardiovascular: Rhythm Regular Respiratory: Normal Breath Sounds, No Rales, No Rhonchi, No Wheezing Gastrointestinal/Abdominal: Bowel Sounds (Active), Soft, No Tenderness, No Distention, No Guarding, No Rebound Neurological/Psych: Oriented x3, Normal Speech Gait: Steady ED Course And Treatment - Laboratory Results Result Diagrams: 03/20/19 22:02 03/20/19 22:02 Lab Interpretation: Abnormal (UA WBC 28 with 2+ leukocyte esterase) O2 Sat by Pulse Oximetry: 99 (RA) Pulse Ox Interpretation: Normal Reevaluation Time: 22:35 Reassessment Condition: Improved (Patient remains comfortable in ED.) Medical Decision Making Medical Decision Making: Plan - UA - Bloodwork Disposition Counseled Patient/Family Regarding: Studies Performed, Diagnosis, Need For Followup, Rx Given - Disposition Referrals: [facility] [place] [Outside] Disposition: HOME/ ROUTINE Disposition Time: 22:36 Condition: STABLE Prescriptions: Nitrofurantoin Macrocrystals [Macrobid] 1 cap PO BID #14 cap Instructions: Urinary Tract Infection, Adult (DC) Forms: Bene[employer] (Hungarian) Print Language: TAMAZIGHT - Clinical Impression Clinical Impression: UTI (urinary tract infection) - Scribe Statement The provider has reviewed the documentation as recorded by the Scribe Ava Sánchez All medical record entries made by the Scribe were at my direction and personally dictated by me. I have reviewed the chart and agree that the record accurately reflects my personal performance of the history, physical exam, medical decision making, and the department course for this patient. I have also personally directed, reviewed, and agree with the discharge instructions and disposition.
[2019-03-20 22:05] LABS: BASO # 0.1 K/uL (0.0-0.2); BASO % 0.9 % (0.0-2.0); EOS # 0.2 K/uL (0.0-0.7); HEMOGLOBIN 13.1 g/dL (11.0-16.0); LYMPH # 2.1 K/uL (1.0-4.3); LYMPH % 38.2 % (20.0-40.0); MEAN CELL VOLUME 81.5 fL (81.0-99.0); MEAN CORPUSCULAR HEMOGLOBIN 28.1 pg (27.0-31.0); MEAN CORPUSCULAR HGB CONC 34.4 g/dL (33.0-37.0); MEAN PLATELET VOLUME 8.6 fL (7.2-11.7); MONO # 0.3 K/uL (0.0-0.8); MONO % 5.6 % (0.0-10.0); NEUT # 2.9 K/uL (1.8-7.0); NEUT % 52.3 % (50.0-75.0); NRBC % 0.1 % (0.0-2.0); RBC 4.65 Mil/uL (3.80-5.20); RED CELL DISTRIBUTION WIDTH 14.1 % (11.5-14.5); WHITE BLOOD COUNT 5.5 K/uL (4.8-10.8)
[2019-03-20 22:19] LABS: ALB/GLOB RATIO 1.3 (1.0-2.1); ALBUMIN 4.4 g/dL (3.5-5.0); ALT/SGPT 29 U/L (9-52); AST/SGOT 52 U/L (14-36); BLOOD UREA NITROGEN 14 mg/dL (7-17); CALCIUM 9.2 mg/dl (8.6-10.4); GFR NON-AFRICAN AMERICAN > 60; LIPASE 109 U/L (23-300)
[2019-03-20 22:27] LABS: SQUAMOUS EPITHIAL < 1 /hpf (0-5); URINE BACTERIA RARE (<OCC); URINE BILIRUBIN NEGATIVE (NEGATIVE); URINE BLOOD 1+ (NEGATIVE); URINE CLARITY Clear (Clear); URINE COLOR Yellow (YELLOW); URINE GLUCOSE (UA) NORMAL (Normal); URINE LEUKOCYTE ESTERASE 2+ Leu/uL (Negative); URINE PROTEIN NEGATIVE (NEGATIVE); URINE UROBILINOGEN NORMAL mg/dL (0.2-1.0)
[2019-03-20 22:57] VITALS: BP 138/78; PULSE 64; RESP 18; TEMP 98.4
== END 2019-03-20 22:58 | disposition home or self-care (01) ==
LOC: C.ER 20:46
DX: N39.0 Urinary tract infection, site not specified (principal)